=== PATIENT | male | born 1990 | race Caucasian/White ===

== ENCOUNTER 2018-08-09 09:29 | Emergency (ER) | payer SELFPAY ==
[2018-08-09] MEDS ORDERED: HYDROCODONE/APAP 10/325 TAB ONE (09:57)
[2018-08-09] MEDS ORDERED: IBUPROFEN 200 MG TAB PO ONE (09:58)
--- NOTE | 2018-08-09 10:24 | ER ---
Nurse's Notes [facility] Name: Luis Guerra Age: 28 yrs Sex: Male : 1990 Arrival Date: 08/09/2018 Time: 09:35 Bed 11 Private MD: None, None Diagnosis: Unspecified sprain of left wrist Presentation: 08/09 09:36 Presenting complaint: Patient states: Yesterday around 0 I picked up at 700 pound ch tote, and it hurt my L hand. since then my had has been swollen and is not numb and tingling. Transition of care: patient was not received from another setting of care. Onset of symptoms was August 08, 2018 at 21:00. Risk Assessment: Do you want to hurt yourself or someone else? Patient reports no desire to harm self or others. Initial Sepsis Screen: Does the patient meet any 2 criteria? No. Patient's initial sepsis screen is negative. Does the patient have a suspected source of infection? No. Patient's initial sepsis screen is negative. Care prior to arrival: None. 09:36 Method Of Arrival: Ambulatory 09:36 Acuity: REINA 4 Triage Assessment: 09:38 General: Appears in no apparent distress. comfortable, Behavior is calm, cooperative, ch appropriate for age. Pain: Complains of pain in left hand Pain currently is 5 out of 10 on a pain scale. at worst was 7 out of 10 on a pain scale. Musculoskeletal: Capillary refill < 3 seconds, in bilateral fingers. toes. Swelling present in left hand. 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 Flu vaccine is up to date. - Social history:: Smoking status: Patient uses tobacco products, smokes one pack cigarettes per day. - Ebola Screening: : Patient negative for fever greater than or equal to 101.5 degrees Fahrenheit, and additional compatible Ebola Virus Disease symptoms Patient denies exposure to infectious person Patient denies travel to an Ebola-affected area in the 21 days before illness onset No symptoms or risks identified at this time. Screenin:06 Abuse screen: Denies threats or abuse. Denies injuries from another. Nutritional iw screening: No deficits noted. Tuberculosis screening: No symptoms or risk factors identified. Fall Risk None identified. Assessment: 10:05 General: Appears in no apparent distress. comfortable, Behavior is calm, cooperative. iw Pain: Complains of pain in left hand. Neuro: Level of Consciousness is awake, alert, obeys commands, Oriented to person, place, time, situation, Moves all extremities. Full function. Cardiovascular: Patient's skin is warm and dry. Respiratory: Respiratory effort is even, unlabored, Respiratory pattern is regular, symmetrical. GI: No signs and/or symptoms were reported involving the gastrointestinal system. Derm: Skin is intact, is healthy with good turgor. Musculoskeletal: Range of motion: intact in all extremities, Reports pain in left hand. Vital Signs: 09:38 BP 131 / 72; Pulse 90; Resp 16; Temp 98.4; Pulse Ox 99% on R/A; Weight 76.2 kg; Height ch 5 ft. 6 in. (167.64 cm); Pain 5/10; 09:38 Body Mass Index 27.12 (76.20 kg, 167.64 cm) ED Course: 09:35 Patient arrived in ED. mr 09:35 None, None is Private Physician. mr 09:37 Triage completed. ch 09:38 Arm band placed on Patient placed in an exam room, on a stretcher. ch 09:41 Jerome Sandoval NP is PHCP. pm1 09:41 [facility] MD is Attending Physician. pm1 09:51 Mira Jaramillo, JOSE C is Primary Nurse. iw 10:00 Patient has correct armband on for positive identification. iw 10:01 X-ray completed. Portable x-ray completed in exam room. Patient tolerated procedure ls3 well. 10:06 No provider procedures requiring assistance completed. Patient did not have IV access iw during this emergency room visit. 10:37 Wrist Left (3 View) XRAY In Process Unspecified. EDMS Administered Medications: 09:51 Drug: Ibuprofen 600 mg Route: PO; iw 10:30 Not Given (pt does not have ride): [place] 10 mg-325 mg 1 tabs PO once iw Outcome: 10:23 Discharge ordered by . pm1 10:32 Discharged to home ambulatory. iw 10:32 Condition: good 10:32 Discharge instructions given to patient, Instructed on discharge instructions, follow up and referral plans. medication usage, Demonstrated understanding of instructions, follow-up care, medications, Prescriptions given X 2. 10:33 Patient left the ED. Signatures: Dispatcher [employer] EDMS Darby Taveras, JOSE C WOODALL Myrtle Nogueira Irene, RN RN Jerome Sandoval NP TERMITE INSPECTOR pm1 Castro Ott ls3
--- NOTE | 2018-08-09 10:24 | EDPHYS ---
Physician Documentation [facility] Name: Luis Guerra Age: 28 yrs Sex: Male : 1990 Arrival Date: 08/09/2018 Time: 09:35 Bed 11 Private MD: None, None ED Physician [facility] HPI: 08/09 11:00 This 28 yrs old Male presents to ER via Ambulatory with complaints of Left pm1 wrist pain. 11:00 The patient or guardian reports pain. The complaints affect the left wrist diffusely. pm1 Context: The problem was sustained at home, resulted from lifting or pulling, a heavy object. Onset: The symptoms/episode began/occurred today. Modifying factors: The symptoms are alleviated by nothing, the symptoms are aggravated by movement. Associated signs and symptoms: Pertinent negatives: cyanosis distally, decreased sensation distally, fever, numbness distally, tingling distally. The patient has not experienced similar symptoms in the past. 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 Flu vaccine is up to date. - Social history:: Smoking status: Patient uses tobacco products, smokes one pack cigarettes per day. - Ebola Screening: : Patient negative for fever greater than or equal to 101.5 degrees Fahrenheit, and additional compatible Ebola Virus Disease symptoms Patient denies exposure to infectious person Patient denies travel to an Ebola-affected area in the 21 days before illness onset No symptoms or risks identified at this time. ROS: 11:00 Constitutional: Negative for fever, chills, and weight loss, Eyes: Negative for injury, pm1 pain, redness, and discharge, ENT: Negative for injury, pain, and discharge, Neck: Negative for injury, pain, and swelling, Cardiovascular: Negative for chest pain, palpitations, and edema, Respiratory: Negative for shortness of breath, cough, wheezing, and pleuritic chest pain, Abdomen/GI: Negative for abdominal pain, nausea, vomiting, diarrhea, and constipation, Back: Negative for injury and pain, : Negative for injury, bleeding, discharge, and swelling. 11:00 Skin: Negative for injury, rash, and discoloration, Neuro: Negative for headache, weakness, numbness, tingling, and seizure. 11:00 MS/extremity: Positive for pain, of the left wrist, Negative for deformity. Exam: 11:00 Hand exam: is negative for decreased range of motion, deformity, snuff box/scaphoid pm1 tenderness, Exam is positive for Phalens Tinnels left wrist. 11:00 Constitutional: This is a well developed, well nourished patient who is awake, alert, and in no acute distress. Head/Face: Normocephalic, atraumatic. Eyes: Pupils equal round and reactive to light, extra-ocular motions intact. Lids and lashes normal. Conjunctiva and sclera are non-icteric and not injected. Cornea within normal limits. Periorbital areas with no swelling, redness, or edema. ENT: Nares patent. No nasal discharge, no septal abnormalities noted. Tympanic membranes are normal and external auditory canals are clear. Oropharynx with no redness, swelling, or masses, exudates, or evidence of obstruction, uvula midline. Mucous membranes moist. Neck: Trachea midline, no thyromegaly or masses palpated, and no cervical lymphadenopathy. Supple, full range of motion without nuchal rigidity, or vertebral point tenderness. No Meningismus. Chest/axilla: Normal chest wall appearance and motion. Nontender with no deformity. No lesions are appreciated. Cardiovascular: Regular rate and rhythm with a normal S1 and S2. No gallops, murmurs, or rubs. Normal PMI, no JVD. No pulse deficits. Respiratory: Lungs have equal breath sounds bilaterally, clear to auscultation and percussion. No rales, rhonchi or wheezes noted. No increased work of breathing, no retractions or nasal flaring. Abdomen/GI: Soft, non-tender, with normal bowel sounds. No distension or tympany. No guarding or rebound. No evidence of tenderness throughout. Back: No spinal tenderness. No costovertebral tenderness. Full range of motion. Skin: Warm, dry with normal turgor. Normal color with no rashes, no lesions, and no evidence of cellulitis. 11:00 Neuro: Orientation: is normal, Motor: is normal, moves all fours. Vital Signs: 09:38 BP 131 / 72; Pulse 90; Resp 16; Temp 98.4; Pulse Ox 99% on R/A; Weight 76.2 kg; Height ch 5 ft. 6 in. (167.64 cm); Pain 5/10; 09:38 Body Mass Index 27.12 (76.20 kg, 167.64 cm) Procedures: 11:00 Splinting: Splint applied to left wrist using wrist splint, applied by nurse. Examined pm1 by me, post splint application: neurovascular intact, 2+ distal pulses palpable, brisk capillary refill noted, Patient tolerated well. MDM: 09:41 Patient medically screened. pm1 10:22 Data reviewed: vital signs. Data interpreted: Pulse oximetry: on room air is 99 %. pm1 Interpretation: normal. Counseling: I had a detailed discussion with the patient and/or guardian regarding: the historical points, exam findings, and any diagnostic results supporting the discharge/admit diagnosis, radiology results, the need for outpatient follow up, to return to the emergency department if symptoms worsen or persist or if there are any questions or concerns that arise at home. 12 09:44 Order name: Wrist Left (3 View) XRAY pm1 08/09 09:46 Order name: Wrist Splint; Complete Time: 10:30 pm1 Administered Medications: 09:51 Drug: Ibuprofen 600 mg Route: PO; iw 10:30 Not Given (pt does not have ride): [place] 10 mg-325 mg 1 tabs PO once iw Disposition: 08/09/18 10:23 Discharged to Home. Impression: Unspecified sprain of left wrist. - Condition is Stable. - Discharge Instructions: Wrist Pain, Wrist Splint. - Prescriptions for Naprosyn 500 mg Oral Tablet - take 1 tablet by ORAL route 2 times per day take with food; 30 tablet. Tylenol- Codeine #3 300-30 mg Oral Tablet - take 2 tablets by ORAL route every 6 hours As needed; 20 tablet. - Work release form, Medication Reconciliation Form, Thank You Letter, Prescription Opioid Use form. - Follow up: Emergency Department; When: As needed; Reason: Worsening of condition. Follow up: Private Physician; When: 2 - 3 days; Reason: Recheck today's complaints, Continuance of care, Re-evaluation by your physician. - Problem is new. - Symptoms have improved. Addendum: 08/25/2018 15:27 Co-signature as Attending Physician, [facility] MD I agree with the assessment and w a plan of care. Signatures: Dispatcher [employer] EDMS Darby Taveras, RN RN Mira Gomez RN RN iw Jerome Sandoval, ACCREDITED PHARMACY TECHNICIAN ACCREDITED PHARMACY TECHNICIAN pm1 Mert, MD MD latesha Kat Corrections: (The following items were deleted from the chart) 08/09 10:33 10:23 08/09/2018 10:23 Discharged to Home. Impression: Unspecified sprain of left iw wrist. Condition is Stable. Forms are Medication Reconciliation Form, Thank You Letter, Antibiotic Education, Prescription Opioid Use. Follow up: Emergency Department; When: As needed; Reason: Worsening of condition. Follow up: Private Physician; When: 2 - 3 days; Reason: Recheck today's complaints, Continuance of care, Re-evaluation by your physician. Problem is new. Symptoms have improved. pm1
--- NOTE | 2018-08-09 10:44 | RAD REPORT ---
EXAM DESCRIPTION: RAD - Wrist Left 3 View - 08/09/2018 10:37 am CLINICAL HISTORY: PAIN Pain COMPARISON: No comparisons FINDINGS: No fracture or dislocation seen. No foreign body or other soft tissue abnormality. IMPRESSION: Negative examination.
== END 2018-08-09 10:33 | disposition home or self-care (01) ==
LOC: ER 09:29
PROC: 2W3DX1Z Immobilization of Left Lower Arm using Splint (ICD-10-PCS; principal; 2018-08-09)
DX: S63.502A Unspecified sprain of left wrist, initial encounter (principal); X50.0XXA Overexertion from strenuous movement or load, initial encounter; Y93.89 Activity, other specified; Y92.009 Unspecified place in unspecified non-institutional (private) residence as the place of occurrence of the external cause; Z91.048 Other nonmedicinal substance allergy status; F17.210 Nicotine dependence, cigarettes, uncomplicated
CPT/HCPCS: 99283

== ENCOUNTER 2018-10-16 11:08 | Emergency (ER) | payer BC, SELFPAY ==
--- NOTE | 2018-10-16 11:34 | EDPHYS ---
Physician Documentation [facility] Name: Luis Guerra Age: 28 yrs Sex: Male : 1990 Arrival Date: 10/16/2018 Time: 11:11 Bed 19 Private MD: [facility] E ED Physician Armando Zendejas HPI: 10/16 11:29 This 28 yrs old Male presents to ER via Ambulatory with complaints of Neck susy Problem. 11:29 The patient or guardian complains of decreased range of motion, pain, that is acute. susy The symptoms are located at the C1, C2, C3, C4, C5, C6 and C7. Onset: The symptoms/episode began/occurred just prior to arrival. Context: The neck injury/problem resulted from a fall. Associated signs and symptoms: The patient has no apparent associated signs or symptoms. The pain does not radiate. Modifying factors: The symptoms are alleviated by remaining still, the symptoms are aggravated by movement, pressure. Severity of symptoms: At their worst the symptoms were moderate, in the emergency department the symptoms are unchanged. The patient has not experienced similar symptoms in the past. 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 - Social history:: Smoking status: Patient/guardian denies using tobacco. - Ebola Screening: : Patient negative for fever greater than or equal to 101.5 degrees Fahrenheit, and additional compatible Ebola Virus Disease symptoms Patient denies exposure to infectious person Patient denies travel to an Ebola-affected area in the 21 days before illness onset No symptoms or risks identified at this time. - Family history:: not pertinent. ROS: 11:29 Constitutional: Negative for fever, chills, and weight loss, Eyes: Negative for injury, susy pain, redness, and discharge, ENT: Negative for injury, pain, and discharge, Cardiovascular: Negative for chest pain, palpitations, and edema, Respiratory: Negative for shortness of breath, cough, wheezing, and pleuritic chest pain, Abdomen/GI: Negative for abdominal pain, nausea, vomiting, diarrhea, and constipation, Back: Negative for injury and pain, : Negative for injury, bleeding, discharge, and swelling, MS/Extremity: Negative for injury and deformity, Skin: Negative for injury, rash, and discoloration, Neuro: Negative for headache, weakness, numbness, tingling, and seizure, Psych: Negative for depression, anxiety, suicide ideation, homicidal ideation, and hallucinations, Allergy/Immunology: Negative for hives, rash, and allergies, Endocrine: Negative for neck swelling, polydipsia, polyuria, polyphagia, and marked weight changes, Hematologic/Lymphatic: Negative for swollen nodes, abnormal bleeding, and unusual bruising. 11:29 Neck: Positive for pain with movement, stiffness. Exam: 11:29 Constitutional: This is a well developed, well nourished patient who is awake, alert, susy and in no acute distress. Head/Face: Normocephalic, atraumatic. Eyes: Pupils equal round and reactive to light, extra-ocular motions intact. Lids and lashes normal. Conjunctiva and sclera are non-icteric and not injected. Cornea within normal limits. Periorbital areas with no swelling, redness, or edema. ENT: Nares patent. No nasal discharge, no septal abnormalities noted. Tympanic membranes are normal and external auditory canals are clear. Oropharynx with no redness, swelling, or masses, exudates, or evidence of obstruction, uvula midline. Mucous membranes moist. Chest/axilla: Normal chest wall appearance and motion. Nontender with no deformity. No lesions are appreciated. Cardiovascular: Regular rate and rhythm with a normal S1 and S2. No gallops, murmurs, or rubs. Normal PMI, no JVD. No pulse deficits. Respiratory: Lungs have equal breath sounds bilaterally, clear to auscultation and percussion. No rales, rhonchi or wheezes noted. No increased work of breathing, no retractions or nasal flaring. Abdomen/GI: Soft, non-tender, with normal bowel sounds. No distension or tympany. No guarding or rebound. No evidence of tenderness throughout. Back: No spinal tenderness. No costovertebral tenderness. Full range of motion. Male : Normal genitalia with no discharge or lesions. Skin: Warm, dry with normal turgor. Normal color with no rashes, no lesions, and no evidence of cellulitis. MS/ Extremity: Pulses equal, no cyanosis. Neurovascular intact. Full, normal range of motion. Neuro: Awake and alert, GCS 15, oriented to person, place, time, and situation. Cranial nerves II-XII grossly intact. Motor strength 5/5 in all extremities. Sensory grossly intact. Cerebellar exam normal. Normal gait. Psych: Awake, alert, with orientation to person, place and time. Behavior, mood, and affect are within normal limits. 11:29 Neck: External neck: tenderness, C-spine: pain on right , torticollis . head to left, no point spinal pain. Vital Signs: 11:16 BP 129 / 67; Pulse 86; Resp 16; Temp 97.9; Pulse Ox 100% on R/A; Weight 86.18 kg (R); sg Height 5 ft. 11 in. (180.34 cm) (R); Pain 8/10; 11:16 Body Mass Index 26.50 (86.18 kg, 180.34 cm) sg MDM: 11:13 Patient medically screened. [facility] 11:33 Data reviewed: vital signs, nurses notes, radiologic studies, CT scan. [facility] 10/16 11:29 Order name: CT C Spine; Complete Time: 12:22 [facility] Administered Medications: 11:35 Drug: Valium 5 mg Route: PO; em 12:55 Follow up: Response: No adverse reaction; Pain is decreased em 11:35 Drug: TORadol 60 mg Route: IM; Site: right gluteus; em 12:55 Follow up: Response: No adverse reaction em 11:35 Drug: [place] 10 mg-325 mg 1 tabs Route: PO; em 12:55 Follow up: Response: No adverse reaction; Pain is decreased em Disposition: 10/16/18 12:23 Discharged to Home. Impression: Torticollis, Strain of muscle, fascia and tendon at neck level, Fall due to bumping against object. - Condition is Stable. - Discharge Instructions: Muscle Strain, Acute Torticollis, Adult, Cervical Sprain, [id number]. - Prescriptions for Ibuprofen 600 mg Oral Tablet - take 1 tablet by ORAL route every 6 hours As needed take with food; 20 tablet. Tylenol- Codeine #3 300-30 mg Oral Tablet - take 2 tablet by ORAL route every 6 hours As needed; 30 tablet. Valium 5 mg Oral Tablet - take 1 tablet by ORAL route every 8 hours As needed; 20 tablet. - Medication Reconciliation Form, Thank You Letter, Antibiotic Education, Prescription Opioid Use, Work release form form. - Follow up: [facility]; When: 2 - 3 days; Reason: Recheck today's complaints, Continuance of care, Re-evaluation by your physician. Follow up: [place]; When: 2 - 3 days; Reason: Recheck today's complaints, Re-evaluation by your physician. - Problem is new. - Symptoms have improved. Signatures: Dispatcher [employer] EDGuanakito Olivia RN RN sg Anderson, Corey, MD MD cha Munoz, Edgar, SUPERVISOR COMPONENT ASSEMBLER SUPERVISOR COMPONENT ASSEMBLER em Corrections: (The following items were deleted from the chart) 11:42 11:34 10/16/2018 11:34 Discharged to Home. Impression: Torticollis; Strain of muscle, susy fascia and tendon at neck level; Fall due to bumping against object. Condition is Stable. Forms are Medication Reconciliation Form, Thank You Letter, Antibiotic Education, Prescription Opioid Use. Follow up: Private Physician; When: 2 - 3 days; Reason: Recheck today's complaints, Continuance of care, Re-evaluation by your physician. Problem is new. Symptoms have improved. [facility] 12:55 12:23 10/16/2018 12:23 Discharged to Home. Impression: Torticollis; Strain of muscle, em fascia and tendon at neck level; Fall due to bumping against object. Condition is Stable. Discharge Instructions: Muscle Strain, Acute Torticollis, Adult, Cervical Sprain, [place]. Prescriptions for Ibuprofen 600 mg Oral Tablet - take 1 tablet by ORAL route every 6 hours As needed take with food; 20 tablet, Tylenol-Codeine #3 300-30 mg Oral Tablet - take 2 tablet by ORAL route every 6 hours As needed; 30 tablet, Valium 5 mg Oral Tablet - take 1 tablet by ORAL route every 8 hours As needed; 20 tablet, Ibuprofen 600 mg Oral Tablet - take 1 tablet by ORAL route every 6 hours As needed take with food; 20 tablet, Tylenol-Codeine #3 300-30 mg Oral Tablet - take 2 tablet by ORAL route every 6 hours As needed; 30 tablet, Valium 5 mg Oral Tablet - take 1 tablet by ORAL route every 8 hours As needed; 20 tablet. and Forms are Medication Reconciliation Form, Thank You Letter, Antibiotic Education, Prescription Opioid Use. Follow up: [facility]; When: 2 - 3 days; Reason: Recheck today's complaints, Continuance of care, Re-evaluation by your physician. Follow up: [facility]; When: 2 - 3 days; Reason: Recheck today's complaints, Re-evaluation by your physician. Problem is new. Symptoms have improved. susy
--- NOTE | 2018-10-16 11:34 | ER ---
Nurse's Notes [facility] Name: Luis Guerra Age: 28 yrs Sex: Male : 1990 Arrival Date: 10/16/2018 Time: 11:11 Bed 19 Private MD: North Edwards E Diagnosis: Torticollis;Strain of muscle, fascia and tendon at neck level;Fall due to bumping against object Presentation: 10/16 11:15 Presenting complaint: Patient states: Tripped over a weedeater that was laying on the sg ground, pt reports he fell and hurt his neck, no head injury or LOC, reports spasms and pain in the neck and right upper back at this time. Transition of care: patient was not received from another setting of care. Onset of symptoms was October 16, 2018. Risk Assessment: Do you want to hurt yourself or someone else? Patient reports no desire to harm self or others. Initial Sepsis Screen: Does the patient meet any 2 criteria? No. Patient's initial sepsis screen is negative. Does the patient have a suspected source of infection? No. Patient's initial sepsis screen is negative. Care prior to arrival: None. 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 - Social history:: Smoking status: Patient/guardian denies using tobacco. - Ebola Screening: : Patient negative for fever greater than or equal to 101.5 degrees Fahrenheit, and additional compatible Ebola Virus Disease symptoms Patient denies exposure to infectious person Patient denies travel to an Ebola-affected area in the 21 days before illness onset No symptoms or risks identified at this time. - Family history:: not pertinent. Screenin:30 Abuse screen: Denies threats or abuse. Nutritional screening: No deficits noted. em Tuberculosis screening: No symptoms or risk factors identified. Fall Risk None identified. Assessment: 11:30 General: Appears in no apparent distress. uncomfortable, Behavior is calm, cooperative, em tripped and right side of neck, denies LOC or hitting head. Pain: Complains of pain in right posterior aspect of neck and right lateral aspect of neck Pain currently is 8 out of 10 on a pain scale. Pain began 2 hours ago. Aggravated by repositioning, Noted to be head leaning to the left side. Neuro: Level of Consciousness is awake, alert, obeys commands, Oriented to person, place, time, situation, Denies weakness dizziness, headache. Cardiovascular: Capillary refill < 3 seconds Patient's skin is warm and dry. Respiratory: Airway is patent Respiratory effort is even, unlabored, Respiratory pattern is regular, symmetrical. Derm: Skin is intact, is healthy with good turgor, Skin is pink, warm \T\ dry. Musculoskeletal: Range of motion: intact in all extremities. Injury Description: trip injury. Vital Signs: 11:16 BP 129 / 67; Pulse 86; Resp 16; Temp 97.9; Pulse Ox 100% on R/A; Weight 86.18 kg (R); sg Height 5 ft. 11 in. (180.34 cm) (R); Pain 8/10; 11:16 Body Mass Index 26.50 (86.18 kg, 180.34 cm) ED Course: 11:11 Patient arrived in ED. mr 11:12 North Edwards MD is Private Physician. mr 11:13 Armando Zendejas MD is Attending Physician. susy 11:16 Triage completed. sg 11:18 Barak Cunningham LVN is Primary Nurse. em 11:18 Arm band placed on. sg 11:30 Patient has correct armband on for positive identification. Bed in low position. Call em light in reach. Side rails up X2. Adult w/ patient. Pulse ox on. NIBP on. 11:[address] kw1 11:50 CT completed. Patient tolerated procedure well. Patient moved back from CT. mw3 11:51 CT C Spine In Process Unspecified. EDMS 12:22 North Edwards MD is Referral Physician. susy 12:22 Gary Saucedo MD is Referral Physician. susy 12:54 No provider procedures requiring assistance completed. Patient did not have IV access em during this emergency room visit. Administered Medications: 11:35 Drug: Valium 5 mg Route: PO; em 12:55 Follow up: Response: No adverse reaction; Pain is decreased em 11:35 Drug: TORadol 60 mg Route: IM; Site: right gluteus; em 12:55 Follow up: Response: No adverse reaction em 11:35 Drug: [place] 10 mg-325 mg 1 tabs Route: PO; em 12:55 Follow up: Response: No adverse reaction; Pain is decreased em Outcome: 11:34 Discharge ordered by . [facility] 12:23 Discharge ordered by . [facility] 12:54 Discharged to home ambulatory. em 12:54 Condition: good 12:54 Discharge instructions given to patient, Instructed on discharge instructions, follow up and referral plans. no drinking with medication, no driving heavy equipment, medication usage, Demonstrated understanding of instructions, follow-up care, medications, Prescriptions given X 3. 12:55 Patient left the ED. em Signatures: Dispatcher [employer] EDGuanakito Olivia RN RN sg Anderson, Corey, MD MD cha Rivera, Mary mr Munoz, Edgar, NURSERY TECHNICIAN NURSERY TECHNICIAN em Aria Rodriguez kw1 Latosha Felipe mw3
[2018-10-16] MEDS ORDERED: KETOROLAC 30 MG/ML INJ ONE (11:39)
[2018-10-16] MEDS ORDERED: DIAZEPAM 5 MG TABLET ONE (11:39)
[2018-10-16] MEDS ORDERED: HYDROCODONE/APAP 10/325 TAB ONE (11:39)
--- NOTE | 2018-10-16 12:06 | RAD REPORT ---
EXAM DESCRIPTION: CT - C Spine Wo Con - 10/16/2018 11:51 am CLINICAL HISTORY: Fall with neck injury and neck pain COMPARISON: None. TECHNIQUE: Computed axial tomography of the cervical spine were obtained with sagittal and coronal r econstruction images generated and reviewed. All CT scans are performed using dose optimization technique as appropriate and may include automated exposure control or mA/KV adjustment according to patient size. FINDINGS: A cervical fracture is not seen. No dislocation noted. A high-grade stenosis is not seen IMPRESSION: A cervical fracture is not seen. If the patient continues have symptoms to suggest spinal cord/spinal canal pathology then MRI would b e recommended.
[2018-10-16 13:43] VITALS: TEMP 97.9
[2018-10-16 13:49] VITALS: BP 133/95; O2SAT 97
== END 2018-10-16 12:55 | disposition home or self-care (01) ==
LOC: ER 11:08
DX: S16.1XXA Strain of muscle, fascia and tendon at neck level, initial encounter (principal); W18.00XA Striking against unspecified object with subsequent fall, initial encounter; Z88.8 Allergy status to other drugs, medicaments and biological substances; M43.6 Torticollis
CPT/HCPCS: 72125

== ENCOUNTER 2018-12-20 14:35 | Emergency (ER) | payer BC, SELFPAY ==
--- NOTE | 2018-12-20 15:43 | ER ---
Nurse's Notes [facility] Name: Luis Guerra Age: 28 yrs Sex: Male : 1990 Arrival Date: 12/20/2018 Time: 14:38 Bed 13 Private MD: North Edwards E Diagnosis: Acute pharyngitis;Acute upper respiratory infection, unspecified Presentation: 12/20 14:40 Presenting complaint: Patient states: Has been sick for a week. Has children at home rb1 with the flu and pneumonia. Sore throat and cough with yellow/green sputum. Transition of care: patient was not received from another setting of care. Onset of symptoms is unknown. Risk Assessment: Do you want to hurt yourself or someone else? Patient reports no desire to harm self or others. Initial Sepsis Screen: Does the patient meet any 2 criteria? No. Patient's initial sepsis screen is negative. Does the patient have a suspected source of infection? No. Patient's initial sepsis screen is negative. 14:40 Method Of Arrival: Ambulatory rb1 14:40 Acuity: REINA 3 rb1 14:40 Care prior to arrival: Medication(s) given: Over the counter cough medication. rb1 Triage Assessment: 14:40 General: Appears uncomfortable, Behavior is calm, cooperative, Reports fever for rb1 feeling ill for x 1 week. Pain: Complains of pain in throat Pain currently is 5 out of 10 on a pain scale. Pain began x 1 week. EENT: Throat is reddened has enlarged tonsils. Neuro: Level of Consciousness is awake, alert, obeys commands, Oriented to person, place, time, situation. Cardiovascular: Capillary refill < 3 seconds is brisk in bilateral fingers. Respiratory: Reports cough that is productive, yellow/green sputum Airway is patent Respiratory effort is even, unlabored, Respiratory pattern is regular, symmetrical. GI: Reports nausea, vomiting, since x 1 week. : No signs and/or symptoms were reported regarding the genitourinary system. Derm: Skin is dry, Skin is normal, Skin temperature is warm. Musculoskeletal: Range of motion: intact in all extremities. 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 - Social history:: Smoking status: Patient uses tobacco products, smokes 1.5 packs per day. - Ebola Screening: : Patient negative for fever greater than or equal to 101.5 degrees Fahrenheit, and additional compatible Ebola Virus Disease symptoms. Screenin:40 Abuse screen: Denies threats or abuse. Nutritional screening: Has had N/V for 3 or more rb1 days. Tuberculosis screening: No symptoms or risk factors identified. Fall Risk None identified. Assessment: 14:40 General: See triage assessment. rb1 14:40 Respiratory: Airway is patent Respiratory effort is even, unlabored, Respiratory rb1 pattern is regular, symmetrical, Breath sounds are clear bilaterally. 15:40 Reassessment: Patient appears in no apparent distress at this time. No changes from rb1 previously documented assessment. Vital Signs: 14:40 BP 113 / 72; Pulse 92; Resp 16; Temp 97.8(O); Pulse Ox 99% on R/A; Weight 78.02 kg (R); rb1 Height 5 ft. 6 in. (167.64 cm) (R); Pain 5/10; 15:40 BP 113 / 58; Pulse 69; Resp 17; Pulse Ox 99% on R/A; rb1 14:40 Body Mass Index 27.76 (78.02 kg, 167.64 cm) rb1 ED Course: 14:38 Patient arrived in ED. mr 14:38 North Edwards MD is Private Physician. mr 14:39 Heaven Gurrola, RN is Primary Nurse. rb1 14:40 Arm band placed on right wrist. rb1 14:40 Pulse ox on. NIBP on. rb1 14:42 Nicky Garcia FNP-C is [facility]. snw 14:45 Glenn Mckeon MD is Attending Physician. snw 14:54 Flu and/or RSV swab sent to lab. Strep swab sent to lab. mh5 14:55 Patient has correct armband on for positive identification. Bed in low position. Call [facility] light in reach. 14:55 Flu Sent. 5 14:55 Strep Sent. 5 14:56 Triage completed. rb1 15:41 North Edwards MD is Referral Physician. snw 16:08 No provider procedures requiring assistance completed. Patient did not have IV access rb1 during this emergency room visit. Administered Medications: 15:50 Drug: predniSONE 40 mg Route: PO; rb1 16:09 Follow up: Response: No adverse reaction rb1 15:50 Drug: Pepcid 20 mg Route: PO; rb1 16:09 Follow up: Response: No adverse reaction rb1 Outcome: 15:42 Discharge ordered by MD. rojas 16:08 Discharged to home ambulatory. rb1 16:08 Condition: stable 16:08 Discharge instructions given to patient, Instructed on discharge instructions, follow up and referral plans. medication usage, Demonstrated understanding of instructions, follow-up care, medications, Prescriptions given X 3. 16:09 Patient left the ED. rb1 Signatures: Nicky Garcia, VEGETABLE WORKER-C VEGETABLE WORKER-Myrtle Hunter Rebecca, RN RN rb1 [address] [facility]
--- NOTE | 2018-12-20 15:44 | EDPHYS ---
Physician Documentation [facility] Name: Luis Guerra Age: 28 yrs Sex: Male : 1990 Arrival Date: 12/20/2018 Time: 14:38 Bed 13 Private MD: North Edwards E ED Physician Glenn Mckeon HPI: 12/20 15:00 This 28 yrs old Male presents to ER via Ambulatory with complaints of Sore snw Throat, Cough. 15:00 The patient presents with sore throat. The patient describes throat pain as raw, snw scratchy. Onset: The symptoms/episode began/occurred suddenly, and became persistent. Severity of symptoms: At their worst the symptoms were moderate, severe. Associated signs and symptoms: Pertinent positives: cough, diarrhea, fever, flu-like symptoms, Sore throat vomiting. It is unknown whether or not the patient has had similar symptoms in the past. The patient has not recently seen a physician. pt with children with recent influenza dx. Historical: - Allergies: 14:40 Iodine (Anaphylaxis); rb1 - Home Meds: 14:40 None [Active]; rb1 - PMHx: 14:40 esophagus closure-; rb1 - PSHx: 14:40 Abd surgery as an infant; rb1 - Immunization history:: Adult Immunizations unknown. - Social history:: Smoking status: Patient uses tobacco products, smokes 1.5 packs per day. - Ebola Screening: : Patient negative for fever greater than or equal to 101.5 degrees Fahrenheit, and additional compatible Ebola Virus Disease symptoms. ROS: 15:04 Eyes: Negative for injury, pain, redness, and discharge. snw 15:04 Neck: Negative for injury, pain, and swelling, Cardiovascular: Negative for chest pain, palpitations, and edema. 15:04 Abdomen/GI: Positive for vomiting, diarrhea, negative for abd pain and constipation, Back: Negative for injury and pain, : Negative for injury, bleeding, discharge, and swelling, MS/Extremity: Negative for injury and deformity, Skin: Negative for injury, rash, and discoloration, Neuro: Negative for headache, weakness, numbness, tingling, and seizure. 15:04 Constitutional: Positive for body aches, fatigue, fever, malaise. 15:04 ENT: Positive for sore throat. 15:04 Respiratory: Positive for cough. Exam: 15:03 Head/Face: Normocephalic, atraumatic. Eyes: Pupils equal round and reactive to light, snw extra-ocular motions intact. Lids and lashes normal. Conjunctiva and sclera are non-icteric and not injected. Cornea within normal limits. Periorbital areas with no swelling, redness, or edema. 15:03 Neck: Trachea midline, no thyromegaly or masses palpated, and no cervical lymphadenopathy. Supple, full range of motion without nuchal rigidity, or vertebral point tenderness. No Meningismus. Chest/axilla: Normal chest wall appearance and motion. Nontender with no deformity. No lesions are appreciated. 15:03 Respiratory: Lungs have equal breath sounds bilaterally, clear to auscultation and percussion. No rales, rhonchi or wheezes noted. No increased work of breathing, no retractions or nasal flaring. Abdomen/GI: Soft, non-tender, with normal bowel sounds. No distension or tympany. No guarding or rebound. No evidence of tenderness throughout. Back: No spinal tenderness. No costovertebral tenderness. Full range of motion. Skin: Warm, dry with normal turgor. Normal color with no rashes, no lesions, and no evidence of cellulitis. MS/ Extremity: Pulses equal, no cyanosis. Neurovascular intact. Full, normal range of motion. Neuro: Awake and alert, GCS 15, oriented to person, place, time, and situation. Cranial nerves II-XII grossly intact. Motor strength 5/5 in all extremities. Sensory grossly intact. Cerebellar exam normal. Normal gait. 15:03 Constitutional: The patient appears alert, awake, uncomfortable. 15:03 ENT: External ear(s): are unremarkable, Ear canal(s): are normal, TM's: are normal, Nose: is normal, Mouth: is normal, Posterior pharynx: swelling, erythema, that is moderate, Voice: is normal. 15:03 Cardiovascular: Rate: tachycardic, Heart sounds: normal. Vital Signs: 14:40 BP 113 / 72; Pulse 92; Resp 16; Temp 97.8(O); Pulse Ox 99% on R/A; Weight 78.02 kg (R); rb1 Height 5 ft. 6 in. (167.64 cm) (R); Pain 5/10; 15:40 BP 113 / 58; Pulse 69; Resp 17; Pulse Ox 99% on R/A; rb1 14:40 Body Mass Index 27.76 (78.02 kg, 167.64 cm) rb1 MDM: 14:50 Patient medically screened. snw 15:45 Data reviewed: vital signs, nurses notes. Data interpreted: Pulse oximetry: on room air snw is 99 %. Interpretation: normal. Counseling: I had a detailed discussion with the patient and/or guardian regarding: the historical points, exam findings, and any diagnostic results supporting the discharge/admit diagnosis, lab results, the need for outpatient follow up, for definitive care, to return to the emergency department if symptoms worsen or persist or if there are any questions or concerns that arise at home. Special discussion: Based on the history and exam findings, there is no indication for further emergent testing or inpatient evaluation. I discussed with the patient/guardian the need to see the primary care provider for further evaluation of the symptoms. 12/20 14:45 Order name: Strep; Complete Time: 15:40 snw 12/20 14:45 Order name: Flu; Complete Time: 15:40 snw 12/20 15:37 Order name: Throat Culture EDMS Administered Medications: 15:50 Drug: predniSONE 40 mg Route: PO; rb1 16:09 Follow up: Response: No adverse reaction rb1 15:50 Drug: Pepcid 20 mg Route: PO; rb1 16:09 Follow up: Response: No adverse reaction rb1 Disposition: 20:39 Co-signature as Attending Physician, Glenn Mckeon MD Available for consultation at ps1 all times . Disposition: 12/20/18 15:42 Discharged to Home. Impression: Acute pharyngitis, Acute upper respiratory infection, unspecified. - Condition is Stable. - Discharge Instructions: Fever, Adult, Pharyngitis, Upper Respiratory Infection, Adult, Rehydration, Adult. - Prescriptions for Tessalon Perles 100 mg Oral Capsule - take 1 capsule by ORAL route every 8 hours As needed; 15 capsule. Prednisone 20 mg Oral Tablet - take 2 tablet by ORAL route once daily for 5 days; 10 tablet. Pepcid 20 mg Oral Tablet - take 1 tablet by ORAL route once daily; 20 tablet. - Medication Reconciliation Form, Thank You Letter, Antibiotic Education, Prescription Opioid Use, Work release form form. - Follow up: North Edwards MD; When: 2 - 3 days; Reason: Recheck today's complaints, Continuance of care, Re-evaluation by your physician. Follow up: Emergency Department; When: As needed; Reason: Worsening of condition. Signatures: Dispatcher [employer] EDMS Garcia Nicky, LINDA-C FOOD AND NUTRITION SUPERVISOR-Csnw Heaven Gurrola, RN RN rb1 Glenn Mckeon MD MD ps1 Corrections: (The following items were deleted from the chart) 16:09 15:42 12/20/2018 15:42 Discharged to Home. Impression: Acute pharyngitis; Acute upper rb1 respiratory infection, unspecified. Condition is Stable. Forms are Medication Reconciliation Form, Thank You Letter, Antibiotic Education, Prescription Opioid Use. Follow up: North Edwards; When: 2 - 3 days; Reason: Recheck today's complaints, Continuance of care, Re-evaluation by your physician. Follow up: Emergency Department; When: As needed; Reason: Worsening of condition. snw
[2018-12-20] MEDS ORDERED: FAMOTIDINE 20 MG TAB ONE (16:00)
[2018-12-20] MEDS ORDERED: predniSONE 20 MG TAB ONE (16:00)
[2018-12-20 16:13] VITALS: TEMP 97.8; O2SAT 99
[2018-12-20 16:15] VITALS: BP 113/58
== END 2018-12-20 16:09 | disposition home or self-care (01) ==
LOC: ER 14:35
DX: J06.9 Acute upper respiratory infection, unspecified (principal); J02.9 Acute pharyngitis, unspecified; F17.210 Nicotine dependence, cigarettes, uncomplicated; Z91.048 Other nonmedicinal substance allergy status
CPT/HCPCS: 87070; 87081; 87804; J7512

== ENCOUNTER 2019-10-18 11:31 | Emergency (ER) | payer SELFPAY ==
--- NOTE | 2019-10-18 13:51 | EDPHYS ---
Physician Documentation [facility] Name: Luis Guerra Age: 29 yrs Sex: Male : 1990 Arrival Date: 10/18/2019 Time: 11:34 Bed 23 Private MD: ED Physician Osvaldo Montgomery HPI: 10/18 12:22 This 29 yrs old Male presents to ER via Ambulatory with complaints of Sore snw Throat. 12:22 The patient presents with sore throat. The patient describes throat pain as raw, snw scratchy. Onset: The symptoms/episode began/occurred suddenly, 2 day(s) ago, and became persistent. Severity of symptoms: At their worst the symptoms were moderate. Associated signs and symptoms: Pertinent positives: headache, Sore throat dizziness. The patient has not experienced similar symptoms in the past. It is unknown whether or not the patient has recently seen a physician. 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 - Coronavirus screen:: The patient has NOT traveled to [place] in the past 14 days. The patient has NOT traveled to [place] in the past 14 days. Proceed with normal triage process as indicated. - Social history:: Smoking status: Patient reports the use of cigarette tobacco products, smokes 1.5 packs per day. - Ebola Screening: : No symptoms or risks identified at this time. ROS: 12:21 Constitutional: Negative for fever, chills, and weight loss, Eyes: Negative for injury, snw pain, redness, and discharge, Neck: Negative for injury, pain, and swelling, Cardiovascular: Negative for chest pain, palpitations, and edema, Respiratory: Negative for shortness of breath, cough, wheezing, and pleuritic chest pain, Abdomen/GI: Negative for abdominal pain, nausea, vomiting, diarrhea, and constipation, Back: Negative for injury and pain, : Negative for injury, bleeding, discharge, and swelling, MS/Extremity: Negative for injury and deformity, Skin: Negative for injury, rash, and discoloration. 12:21 ENT: Positive for sore throat. 12:21 Neuro: Positive for dizziness, headache. Exam: 12:21 Constitutional: This is a well developed, well nourished patient who is awake, alert, snw and in no acute distress. Head/Face: Normocephalic, atraumatic. Eyes: Pupils equal round and reactive to light, extra-ocular motions intact. Lids and lashes normal. Conjunctiva and sclera are non-icteric and not injected. Cornea within normal limits. Periorbital areas with no swelling, redness, or edema. Neck: Trachea midline, no thyromegaly or masses palpated, and no cervical lymphadenopathy. Supple, full range of motion without nuchal rigidity, or vertebral point tenderness. No Meningismus. Chest/axilla: Normal chest wall appearance and motion. Nontender with no deformity. No lesions are appreciated. Cardiovascular: Regular rate and rhythm with a normal S1 and S2. No gallops, murmurs, or rubs. Normal PMI, no JVD. No pulse deficits. Respiratory: Lungs have equal breath sounds bilaterally, clear to auscultation and percussion. No rales, rhonchi or wheezes noted. No increased work of breathing, no retractions or nasal flaring. Abdomen/GI: Soft, non-tender, with normal bowel sounds. No distension or tympany. No guarding or rebound. No evidence of tenderness throughout. Back: No spinal tenderness. No costovertebral tenderness. Full range of motion. Skin: Warm, dry with normal turgor. Normal color with no rashes, no lesions, and no evidence of cellulitis. MS/ Extremity: Pulses equal, no cyanosis. Neurovascular intact. Full, normal range of motion. Neuro: Awake and alert, GCS 15, oriented to person, place, time, and situation. Cranial nerves II-XII grossly intact. Motor strength 5/5 in all extremities. Sensory grossly intact. Cerebellar exam normal. Normal gait. 12:21 ENT: External ear(s): are unremarkable, TM's: dullness, fluid levels, on the left, Nose: is normal, Mouth: is normal, Posterior pharynx: erythema, that is moderate, Dental exam: normal, dental caries, that is moderate, Voice: is normal. Vital Signs: 12:05 BP 123 / 82; Pulse 92; Resp 20; Temp 97.6(O); Pulse Ox 99% on R/A; Weight 78.02 kg (R); vc Height 5 ft. 6 in. (167.64 cm) (R); Pain 3/10; 12:05 Body Mass Index 27.76 (78.02 kg, 167.64 cm) vc MDM: 12:26 Patient medically screened. snw 12:27 Data reviewed: vital signs, nurses notes. Data interpreted: Pulse oximetry: on room air snw is 99 %. Interpretation: normal. Counseling: I had a detailed discussion with the patient and/or guardian regarding: the historical points, exam findings, and any diagnostic results supporting the discharge/admit diagnosis, lab results, the need for outpatient follow up, to return to the emergency department if symptoms worsen or persist or if there are any questions or concerns that arise at home. Special discussion: Based on the history and exam findings, there is no indication for further emergent testing or inpatient evaluation. I discussed with the patient/guardian the need to see the primary care provider for further evaluation of the symptoms. Administered Medications: No medications were administered Disposition: 14:01 Co-signature as Attending Physician, Osvaldo Montgomery MD I agree with the assessment and kdr plan of care. Disposition: 10/18/19 12:26 Discharged to Home. Impression: Acute suppurative otitis media, Acute pharyngitis. - Condition is Stable. - Discharge Instructions: Otitis Media, Adult, Pharyngitis, Rehydration, Adult, Heat Therapy. - Prescriptions for Augmentin 875- 125 mg Oral Tablet - take 1 tablet by ORAL route every 12 hours for 10 days; 20 tablet. - Work release form, Medication Reconciliation Form, Thank You Letter, Antibiotic Education, Prescription Opioid Use form. - Follow up: Emergency Department; When: As needed; Reason: Worsening of condition. Follow up: Private Physician; When: 2 - 3 days; Reason: Recheck today's complaints, Continuance of care, Re-evaluation by your physician. Signatures: Dispatcher [employer] Osvaldo Smith MD MD [facility] Nicky Garcia, LINDA-C [employer]-Kielw Mariella Huff RN RN vc Corrections: (The following items were deleted from the chart) 12:37 12:26 10/18/2019 12:26 Discharged to Home. Impression: Acute suppurative otitis media; vc Acute pharyngitis. Condition is Stable. Discharge Instructions: Otitis Media, Adult, Pharyngitis, Rehydration, Adult, Heat Therapy. Prescriptions for Augmentin 875-125 mg Oral Tablet - take 1 tablet by ORAL route every 12 hours for 10 days; 20 tablet. and Forms are Work release form, Medication Reconciliation Form, Thank You Letter, Antibiotic Education, Prescription Opioid Use. Follow up: Emergency Department; When: As needed; Reason: Worsening of condition. Follow up: Private Physician; When: 2 - 3 days; Reason: Recheck today's complaints, Continuance of care, Re-evaluation by your physician. snw
--- NOTE | 2019-10-18 13:51 | ER ---
Nurse's Notes [facility] Name: Luis Guerra Age: 29 yrs Sex: Male : 1990 Arrival Date: 10/18/2019 Time: 11:34 Bed 23 Private MD: Diagnosis: Acute suppurative otitis media;Acute pharyngitis Presentation: 10/18 12:01 Presenting complaint: Patient states: "For the last few days I have been dizzy, with a vc headache, and sore throat. Yesterday I lost my voice and it is getting hard to swallow. My lost her voice too. I've been drinking chamomile tea and my voice is back today.". Transition of care: patient was not received from another setting of care. Onset of symptoms was October 16, 2019. Risk Assessment: Do you want to hurt yourself or someone else? Patient reports no desire to harm self or others. Initial Sepsis Screen: Does the patient meet any 2 criteria? No. Patient's initial sepsis screen is negative. Does the patient have a suspected source of infection? No. Patient's initial sepsis screen is negative. Care prior to arrival: None. 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 - Coronavirus screen:: The patient has NOT traveled to [place] in the past 14 days. The patient has NOT traveled to [place] in the past 14 days. Proceed with normal triage process as indicated. - Social history:: Smoking status: Patient reports the use of cigarette tobacco products, smokes 1.5 packs per day. - Ebola Screening: : No symptoms or risks identified at this time. Screenin:05 Abuse screen: Denies threats or abuse. Nutritional screening: No deficits noted. vc Tuberculosis screening: No symptoms or risk factors identified. Fall Risk None identified. Assessment: 12:27 General: Appears in no apparent distress. Behavior is calm, cooperative. Pain: vc Complains of pain in throat. Neuro: Level of Consciousness is awake, alert, obeys commands. Cardiovascular: Patient's skin is warm and dry. Respiratory: Airway is patent Respiratory effort is even, unlabored, Breath sounds are clear. GI: No deficits noted. : No signs and/or symptoms were reported regarding the genitourinary system. EENT: Throat is reddened. Derm: Skin temperature is warm. Musculoskeletal: Circulation, motion, and sensation intact. Range of motion: intact in all extremities. 12:35 Reassessment: Patient and/or family updated on plan of care and expected duration. Pain vc level reassessed. Patient is alert, oriented x 3, equal unlabored respirations, skin warm/dry/pink. Vital Signs: 12:05 BP 123 / 82; Pulse 92; Resp 20; Temp 97.6(O); Pulse Ox 99% on R/A; Weight 78.02 kg (R); vc Height 5 ft. 6 in. (167.64 cm) (R); Pain 3/10; 12:05 Body Mass Index 27.76 (78.02 kg, 167.64 cm) vc ED Course: 11:34 Patient arrived in ED. as 11:35 [facility]C [facility] snw 11:35 Osvaldo Montgomery MD is Attending Physician. snw 12:01 Mariella Huff RN is Primary Nurse. vc 12:04 Triage completed. vc 12:05 Arm band placed on. vc 12:05 Patient has correct armband on for positive identification. vc 12:35 No provider procedures requiring assistance completed. Patient did not have IV access vc during this emergency room visit. Administered Medications: No medications were administered Outcome: 12:26 Discharge ordered by . snw 12:35 Discharged to home ambulatory. vc 12:35 Condition: good 12:35 Discharge instructions given to patient, Instructed on discharge instructions, follow up and referral plans. medication usage, Demonstrated understanding of instructions, follow-up care, medications, Prescriptions given X 1. 12:37 Patient left the ED. vc Signatures: Nicky Garcia FNP-C FNP-Pamela Aranda as Mariella Huff, RN RN vc
[2019-10-18 14:00] VITALS: BP 123/82; TEMP 97.6; O2SAT 99
== END 2019-10-18 12:37 | disposition home or self-care (01) ==
LOC: ER 11:31
DX: H66.002 Acute suppurative otitis media without spontaneous rupture of ear drum, left ear (principal); F17.210 Nicotine dependence, cigarettes, uncomplicated; Z91.048 Other nonmedicinal substance allergy status
CPT/HCPCS: 87070; 87081; 87804; 99282

== ENCOUNTER → 2019-11-01 | Emergency (ER) | payer SELFPAY ==
[~2019-11-01] MED LIST: ATEZOLIZUMAB IV ONE; KETOROLAC 30 MG/ML INJ ONE; ONDANSETRON 4 MG (ODT) TAB ONE
== END ==
LOC: ER 06:15
DX: J02.0 Streptococcal pharyngitis (principal); R11.2 Nausea with vomiting, unspecified; F17.210 Nicotine dependence, cigarettes, uncomplicated; Z91.048 Other nonmedicinal substance allergy status
CPT/HCPCS: 87081; 87804

== ENCOUNTER 2019-11-13 23:19 | Emergency (ER) | payer SELFPAY ==
--- NOTE | 2019-11-14 00:46 | ER ---
Nurse's Notes [facility] Name: Luis Guerra Age: 29 yrs Sex: Male : 1990 Arrival Date: 11/13/2019 Time: 23:31 Bed 16 Private MD: Diagnosis: Dental caries Presentation: 11/12 23:43 Chief complaint: Patient states: he is having severe left jaw pain and swelling from a bb " tooth" which started yesterday and it is making his vision blurry he is supposed to wear glasses but he doesn't wear them. Coronavirus screen: Patient denies fever greater than 100.4F, cough, shortness of breath, or difficulty breathing. Proceed with normal triage process. Ebola Screen: No symptoms or risks identified at this time. Initial Sepsis Screen: Does the patient meet any 2 criteria? No. Patient's initial sepsis screen is negative. Does the patient have a suspected source of infection? No. Patient's initial sepsis screen is negative. Risk Assessment: Do you want to hurt yourself or someone else? Patient reports no desire to harm self or others. Onset of symptoms was November 12, 2019. 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 - Social history:: Smoking status: Patient reports the use of cigarette tobacco products, smokes one pack cigarettes per day. Patient/guardian denies using alcohol, street drugs. Screenin/24 01:03 Abuse screen: Denies threats or abuse. Denies injuries from another. Abuse screen:. mg2 Nutritional screening: No deficits noted. Tuberculosis screening: No symptoms or risk factors identified. Fall Risk None identified. Assessment: 01:02 General: Appears in no apparent distress. comfortable, Behavior is calm, cooperative. mg2 Pain: Complains of pain in tooth. Neuro: Level of Consciousness is awake, alert, obeys commands, Oriented to person, place, time, situation. Cardiovascular: Capillary refill < 3 seconds Patient's skin is warm and dry. Respiratory: Airway is patent Respiratory effort is even, unlabored, Respiratory pattern is regular, symmetrical. GI: No signs and/or symptoms were reported involving the gastrointestinal system. : No signs and/or symptoms were reported regarding the genitourinary system. EENT: Reports toothache. Derm: Skin is intact, is healthy with good turgor, Skin is pink, warm \\T\\ dry. normal. Musculoskeletal: Circulation, motion, and sensation intact. Capillary refill < 3 seconds. Vital Signs: 11/12 23:43 BP 141 / 87; Pulse 76; Resp 16 S; Temp 98.1(O); Pulse Ox 100% on R/A; Weight 78.02 kg bb (R); Height 5 ft. 6 in. (167.64 cm) (R); Pain 10/10; 11/13 01:04 BP 122 / 85; Pulse 80; Resp 18; Temp 98; Pulse Ox 100% on R/A; mg2 11/12 23:43 Body Mass Index 27.76 (78.02 kg, 167.64 cm) ED Course: 11/12 23:31 Patient arrived in ED. cl3 23:45 Triage completed. bb 23:45 Jerome Sandoval NP is PHCP. pm1 23:45 Zhen Santo MD is Attending Physician. pm1 23:46 Arm band placed on Patient placed in an exam room, on a stretcher, on pulse oximetry. bb 11/13 00:05 Hesham Bhatti, JOSE C is Primary Nurse. mg2 01:04 No provider procedures requiring assistance completed. Patient did not have IV access mg2 during this emergency room visit. 01:05 Patient has correct armband on for positive identification. mg2 Administered Medications: 00:51 Drug: [place] 10 mg-325 mg 1 tabs Route: PO; fu 01:02 Follow up: Response: Medication administered at discharge. fu Outcome: 00:46 Discharge ordered by . pm1 01:04 Discharged to home ambulatory. mg2 01:04 Condition: stable 01:04 Discharge instructions given to patient, Instructed on discharge instructions, follow up and referral plans. Demonstrated understanding of instructions, follow-up care, medications, Prescriptions given X 2. 01:05 Patient left the ED. mg2 Signatures: Radha Spears RN RN Jerome Sandoval NP CORPORATE LIBRARIAN pm1 Andres Ryan RN RN Hesham Bhatti RN RN mg2 Morenita Weathers cl3
--- NOTE | 2019-11-14 00:47 | EDPHYS ---
Physician Documentation [facility] Name: Luis Guerra Age: 29 yrs Sex: Male : 1990 Arrival Date: 11/13/2019 Time: 23:31 Bed 16 Private MD: ED Physician Zhen Santo HPI: 11/13 00:42 This 29 yrs old Male presents to ER via Ambulatory with complaints of pm1 Toothache. 00:42 The patient presents with pain. The problem is located in the lower left first molar. pm1 Onset: The symptoms/episode began/occurred yesterday. Duration: The symptoms are continuous. Modifying factors: The symptoms are alleviated by nothing, the symptoms are aggravated by nothing. Associated signs and symptoms: Pertinent positives: swelling, mandibular. Severity of symptoms: in the emergency department the symptoms are actually worse. The patient has experienced similar episodes in the past, multiple times. The patient has not recently seen a physician. 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 - Social history:: Smoking status: Patient reports the use of cigarette tobacco products, smokes one pack cigarettes per day. Patient/guardian denies using alcohol, street drugs. ROS: 11/13 00:42 Constitutional: Negative for fever, chills, and weight loss. pm1 Neck: Negative for injury, pain, and swelling, Cardiovascular: Negative for chest pain, palpitations, and edema, Respiratory: Negative for shortness of breath, cough, wheezing, and pleuritic chest pain, Abdomen/GI: Negative for abdominal pain, nausea, vomiting, diarrhea, and constipation, Back: Negative for injury and pain, MS/Extremity: Negative for injury and deformity, Skin: Negative for injury, rash, and discoloration. ENT: Positive for dental pain, Negative for sore throat, difficulty swallowing, difficulty handling secretions, hoarseness. Exam: 00:42 Constitutional: This is a well developed, well nourished patient who is awake, alert, pm1 and in no acute distress. Head/Face: Normocephalic, atraumatic. 00:42 Chest/axilla: Normal chest wall appearance and motion. Nontender with no deformity. No lesions are appreciated. Cardiovascular: Regular rate and rhythm with a normal S1 and S2. No gallops, murmurs, or rubs. Normal PMI, no JVD. No pulse deficits. Respiratory: Lungs have equal breath sounds bilaterally, clear to auscultation and percussion. No rales, rhonchi or wheezes noted. No increased work of breathing, no retractions or nasal flaring. Skin: Warm, dry with normal turgor. Normal color with no rashes, no lesions, and no evidence of cellulitis. MS/ Extremity: Pulses equal, no cyanosis. Neurovascular intact. Full, normal range of motion. 00:42 ENT: External ear(s): are unremarkable, Ear canal(s): are normal, Dental exam: abscess, is not appreciated, dental caries, that is moderate, diffusely. 00:42 Neuro: Exam negative for acute changes, Orientation: is normal, Motor: is normal, moves all fours. Vital Signs: 11/12 23:43 BP 141 / 87; Pulse 76; Resp 16 S; Temp 98.1(O); Pulse Ox 100% on R/A; Weight 78.02 kg bb (R); Height 5 ft. 6 in. (167.64 cm) (R); Pain 10/10; 11/13 01:04 BP 122 / 85; Pulse 80; Resp 18; Temp 98; Pulse Ox 100% on R/A; mg2 03 23:43 Body Mass Index 27.76 (78.02 kg, 167.64 cm) bb MDM: 00:42 Patient medically screened. pm1 00:45 Data reviewed: vital signs. Data interpreted: Pulse oximetry: on room air is 100 %. pm1 Interpretation: normal. Counseling: I had a detailed discussion with the patient and/or guardian regarding: the historical points, exam findings, and any diagnostic results supporting the discharge/admit diagnosis, the need for outpatient follow up, for definitive care, a dentist, to return to the emergency department if symptoms worsen or persist or if there are any questions or concerns that arise at home. 00:50 ED course: DISABILITY SPECIALIST aware reviewed. pm1 Administered Medications: 00:51 Drug: [place] 10 mg-325 mg 1 tabs Route: PO; fu 01:02 Follow up: Response: Medication administered at discharge. fu Disposition: 01:27 Co-signature as Attending Physician, Zhen Santo MD. pkl Disposition: 11/14/19 00:46 Discharged to Home. Impression: Dental caries. - Condition is Stable. - Discharge Instructions: Dental Pain. - Prescriptions for Amoxicillin 500 mg Oral Capsule - take 1 capsule by ORAL route every 8 hours for 10 days; 30 tablet. Tramadol 50 mg Oral Tablet - take 1 tablet by ORAL route every 8 hours as needed; 12 tablet. - Medication Reconciliation Form, Thank You Letter, Antibiotic Education, Prescription Opioid Use, Work release form form. - Follow up: Emergency Department; When: As needed; Reason: Worsening of condition. Follow up: Private Physician; When: 2 - 3 days; Reason: Recheck today's complaints, Continuance of care, Re-evaluation by your physician. - Problem is new. - Symptoms have improved. Signatures: Zhen Santo MD MD pkl Radha Spears, RN RN Jerome Saucedo, [place] SPECIAL LIBRARY LIBRARIAN pm1 Andres Ryan RN RN fu [place], Michele, RN RN mg2 Corrections: (The following items were deleted from the chart) 01:05 00:46 11/14/2019 00:46 Discharged to Home. Impression: Dental caries. Condition is mg2 Stable. Forms are Medication Reconciliation Form, Thank You Letter, Antibiotic Education, Prescription Opioid Use. Follow up: Emergency Department; When: As needed; Reason: Worsening of condition. Follow up: Private Physician; When: 2 - 3 days; Reason: Recheck today's complaints, Continuance of care, Re-evaluation by your physician. Problem is new. Symptoms have improved. pm1
[2019-11-14] MEDS ORDERED: HYDROCODONE/APAP 10/325 TAB ONE (00:54)
[2019-11-14 01:42] VITALS: O2SAT 100
[2019-11-14 01:43] VITALS: BP 122/85; TEMP 98
== END 2019-11-14 01:05 | disposition home or self-care (01) ==
LOC: ER 23:19
DX: K02.9 Dental caries, unspecified (principal); F17.210 Nicotine dependence, cigarettes, uncomplicated; Z91.048 Other nonmedicinal substance allergy status
CPT/HCPCS: 99283

== ENCOUNTER 2020-01-27 09:49 | Emergency (ER) | payer SELFPAY ==
[2020-01-27] MEDS ORDERED: MEPERIDINE HCL 25 MG/ML SYR ONE ×2 (10:09→10:37)
[2020-01-27] MEDS ORDERED: ONDANSETRON 4 MG/2 ML VIAL ONE (10:09)
[2020-01-27 10:23] LABS: Absolute Lymphocytes (CBC) 4.3 K/uL (0.7-4.9); Basophils % 0.7 % (0-1.3); Hematocrit 45.4 % (39.6-49.0); Lymphocytes % 34.7 % (15.3-44.8); MPV 7.5 fL (7.6-11.3); RBC Red Blood Cell Count 4.92 M/uL (4.33-5.43)
[2020-01-27 10:36] LABS: Potassium 3.5 mmol/L (3.5-5.1)
[2020-01-27] MEDS ORDERED: MORPHINE 4 MG/ML SYR ONE (10:39)
--- NOTE | 2020-01-27 10:53 | RAD REPORT ---
EXAM DESCRIPTION: CT - Stone Protocol - 01/27/2020 10:40 am CLINICAL HISTORY: left flank pain COMPARISON: No comparisons TECHNIQUE: Axial 5 mm thick images were obtained without oral or IV contrast. The [id number] span s the entirety of the system including uppermost abdomen and lung bases. All CT scans are performed using dose optimization technique as appropriate and may include automated exposure control or mA/KV adjustment according to patient size. FINDINGS: Mild left-sided hydronephrosis secondary to a 3 mm stone at the left UVJ. No other obstruc ting or nonobstructing calculi on the left. A 3 millimeter calyx calcification present mid right kidn ey with no hydronephrosis or ureter calcification. No suspicious renal masses. Isodense masses and py elonephritis are not excluded on a stone protocol CT scan. No significant adrenal finding. Urinary bl adder is contracted limiting detail. Imaged portions of the liver, spleen and pancreas show no suspicious findings on non-contrast imaging . No gallbladder or biliary tree abnormality identified. No suspicious bowel findings. Appendix is normal. No mass or bulky lymphadenopathy. Patient has a small 2 centimeter fat only umbilical hernia with sma ll supraumbilical fat only ventral hernias. No free air, free fluid or inflammatory stranding. No significant bony abnormality. No gross evidence for a disc herniation. Central canal detail is inh erently limited. IMPRESSION: Mild left-sided hydronephrosis secondary to a 3 mm UVJ calculus. Isodense masses and pyelonephritis are not excluded on stone protocol technique.
[2020-01-27] MEDS ORDERED: TAMSULOSIN 0.4 MG SR CAP ONE (11:17)
[2020-01-27] MEDS ORDERED: KETOROLAC 30 MG/ML INJ ONE (11:17)
[2020-01-27] MEDS ORDERED: MAGNESIUM SULFATE 1 gm IVPB 1 GM/100 ML BAG IV ONE (11:17)
--- NOTE | 2020-01-27 11:17 | ER ---
Nurse's Notes [facility] Name: Luis Guerra Age: 29 yrs Sex: Male : 1990 Arrival Date: 01/27/2020 Time: 09:52 Bed 7 Private MD: Diagnosis: Ureterolithiasis Presentation: 01/26 09:52 Chief complaint: EMS states: Sudden onset of L low back pain when bending over to set ph up a speaker, reports that pain radiates around to abdomen, pt diaphoretic and actively vomiting upon arrival to ED. Coronavirus screen: Patient denies a cough. Patient denies shortness of breath or difficulty breathing. Patient denies measured and/or subjective temperature greater than 100.4F prior to today's visit. Patient denies travel on a cruise ship or to a country the [facility] currently lists as an affected area. Patient denies contact with known and/or suspected case of COVID-19. Ebola Screen: No symptoms or risks identified at this time. Initial Sepsis Screen: Does the patient meet any 2 criteria? No. Patient's initial sepsis screen is negative. Does the patient have a suspected source of infection? No. Patient's initial sepsis screen is negative. Risk Assessment: Do you want to hurt yourself or someone else? Patient reports no desire to harm self or others. Onset of symptoms was January 27, 2020. 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 - Social history:: Smoking status: Patient reports the use of cigarette tobacco products, smokes one pack cigarettes per day. - Family history:: not pertinent. - Hospitalizations: : No recent hospitalization is reported. Screenin:08 Abuse screen: Denies threats or abuse. Denies injuries from another. Nutritional ph screening: No deficits noted. Tuberculosis screening: No symptoms or risk factors identified. Fall Risk None identified. Assessment: 10:00 General: Appears in no apparent distress. uncomfortable, Behavior is cooperative, ph appropriate for age, restless. Pain: Complains of pain in left mid back Pain radiates to anterior aspect of left lateral abdomen, posterior aspect of left lateral abdomen, left upper quadrant and left lower quadrant Pain currently is 9 out of 10 on a pain scale. Neuro: Level of Consciousness is awake, alert, obeys commands, Oriented to person, place, time, situation. Cardiovascular: Capillary refill < 3 seconds in bilateral fingers Patient's skin is warm and dry. Respiratory: Airway is patent Respiratory effort is even, unlabored. GI: Abdomen is non-distended, Pt is actively vomiting Reports lower abdominal pain, upper abdominal pain, nausea, vomiting. : Reports pain in left flank(s), lower quadrant(s) in lower back. Derm: Skin is intact, Skin is clammy, diaphoretic, Skin is normal. Musculoskeletal: Circulation, motion, and sensation intact. Range of motion: intact in all extremities. 11:07 Reassessment: Patient appears in no apparent distress at this time. Patient and/or ph family updated on plan of care and expected duration. Pain level reassessed. Patient is alert, oriented x 3, equal unlabored respirations, skin warm/dry/pink. 11:18 Reassessment: Patient appears in no apparent distress at this time. Patient and/or ph family updated on plan of care and expected duration. Pain level reassessed. Patient is alert, oriented x 3, equal unlabored respirations, skin warm/dry/pink. D/C pending completion of IV meds Patient states feeling better. Vital Signs: 09:52 BP 128 / 115; Pulse 93; Resp 18; Temp 97.2; Pulse Ox 99% on R/A; Weight 78.47 kg; ph Height 5 ft. 6 in. (167.64 cm); 11:17 BP 122 / 76; Pulse 75; Resp 16; Pulse Ox 98% ; Pain 3/10; ph 12:15 BP 118 / 74; Pulse 74; Resp 18; Temp 98.0; Pulse Ox 99% on R/A; ph 09:52 Body Mass Index 27.92 (78.47 kg, 167.64 cm) ph ED Course: 09:52 Patient arrived in ED. rn 09:52 Du Ramos MD is Attending Physician. rn 09:52 Fariha New, JOSE C is Primary Nurse. ph 09:55 Triage completed. ph 10:10 No provider procedures requiring assistance completed. Initial lab(s) drawn, by tx, ph sent to lab. Inserted saline lock: 20 gauge in right forearm, using aseptic technique. Blood collected. 10:41 CT Stone Protocol In Process Unspecified. EDMS 11:08 Patient has correct armband on for positive identification. Bed in low position. Call ph light in reach. Side rails up X 1. Pulse ox on. NIBP on. Door closed. Noise minimized. 11:08 Arm band placed on Patient placed in an exam room. ph 11:16 Hossein Ortega MD is Referral Physician. rn 12:15 IV discontinued, intact, bleeding controlled, No redness/swelling at site. Pressure ph dressing applied. Administered Medications: 09:53 CANCELLED (Duplicate Order): Demerol 25 mg IVP once; RASS on ADMIN: Combtv4, Very rn Agttd3, Agttd2, Rstlss1, AlertClm0, Drwsy-1, Lt Sdtn-2, Mod Sdtn-3, Dp Sdtn-4, UnArsble-5 10:10 Drug: Zofran (Ondansetron) 4 mg Route: IVP; Site: right forearm; ph 10:30 Follow up: Response: No adverse reaction; Vomiting decreased ph 10:10 Drug: Demerol 50 mg Route: IVP; Site: right forearm; ph 10:15 Follow up: Response: No adverse reaction; Pain is unchanged, physician notified ph 10:32 Drug: morphine 4 mg Route: IVP; Site: right forearm; ph 10:45 Follow up: Response: No adverse reaction; Pain is decreased ph 11:16 Drug: Magnesium Sulfate 1 grams Route: IVPB; Infused Over: 1 hrs; Site: right forearm; ph 12:20 Follow up: Response: No adverse reaction; IV Status: Completed infusion ph 11:17 Drug: TORadol 30 mg Route: IVP; Site: right forearm; ph 11:30 Follow up: Response: No adverse reaction; Pain is decreased ph 11:17 Drug: Flomax 0.4 mg Route: PO; ph 11:30 Follow up: Response: No adverse reaction ph Outcome: 11:16 Discharge ordered by . rn 12:22 Patient left the ED. ss 12:22 Discharged to home ambulatory. ph 12:22 Condition: good 12:22 Discharge instructions given to patient, Instructed on discharge instructions, follow up and referral plans. medication usage, Demonstrated understanding of instructions, follow-up care, medications, Prescriptions given X 3. Signatures: Dispatcher [employer] Du Coy MD MD rn Smirch, Shelby, RN RN Fariha New RN RN ph
--- NOTE | 2020-01-27 11:17 | EDPHYS ---
Physician Documentation [facility] Name: Luis Guerra Age: 29 yrs Sex: Male : 1990 Arrival Date: 01/27/2020 Time: 09:52 Bed 7 Private MD: ED Physician Du Ramos HPI: 01/26 11:06 This 29 yrs old Male presents to ER via EMS with complaints of left flank rn pain. 11:06 The patient complains of pain in the left mid back. The pain radiates to the abdomen. rn Onset: The symptoms/episode began/occurred just prior to arrival. Modifying factors: The symptoms are alleviated by nothing. the symptoms are aggravated by nothing. Severity of pain: At its worst the pain was moderate in the emergency department the pain is unchanged. The patient has not experienced similar symptoms in the past. The patient has not recently seen a physician. No injury, sudden onset, radiates to abdomen. + vomited once. Brother with kidney stones. . 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 - Social history:: Smoking status: Patient reports the use of cigarette tobacco products, smokes one pack cigarettes per day. - Family history:: not pertinent. - Hospitalizations: : No recent hospitalization is reported. ROS: 11:06 Constitutional: Negative for fever, chills, and weight loss, Eyes: Negative for injury, rn pain, redness, and discharge, Neck: Negative for injury, pain, and swelling, Cardiovascular: Negative for chest pain, palpitations, and edema, Respiratory: Negative for shortness of breath, cough, wheezing, and pleuritic chest pain, Abdomen/GI: Negative for diarrhea, and constipation, Back: + flank pain, left side : Negative for injury, bleeding, discharge, and swelling, MS/Extremity: Negative for injury and deformity, Skin: Negative for injury, rash, and discoloration, Neuro: Negative for headache, weakness, numbness, tingling, and seizure. Exam: 11:06 Constitutional: This is a well developed, well nourished patient who is awake, alert, rn looks uncomfortable. Cardiovascular: Regular rate and rhythm. No pulse deficits. Respiratory: No increased work of breathing, no retractions or nasal flaring. Abdomen/GI: Soft, non-tender Back: No spinal tenderness. No costovertebral tenderness. Skin: Warm, dry MS/ Extremity: Pulses equal, no cyanosis. Neurovascular intact. Full, normal range of motion. Equal circumference. Neuro: Awake and alert, GCS 15 Vital Signs: 09:52 BP 128 / 115; Pulse 93; Resp 18; Temp 97.2; Pulse Ox 99% on R/A; Weight 78.47 kg; ph Height 5 ft. 6 in. (167.64 cm); 11:17 BP 122 / 76; Pulse 75; Resp 16; Pulse Ox 98% ; Pain 3/10; ph 12:15 BP 118 / 74; Pulse 74; Resp 18; Temp 98.0; Pulse Ox 99% on R/A; ph 09:52 Body Mass Index 27.92 (78.47 kg, 167.64 cm) ph MDM: 09:52 Patient medically screened. rn 11:14 Differential diagnosis: nephrolithiasis. 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 Counseling: I had a detailed discussion with the patient and/or guardian regarding: the historical points, exam findings, and any diagnostic results supporting the discharge/admit diagnosis, lab results, radiology results, the need for outpatient follow up, to return to the emergency department if symptoms worsen or persist or if there are any questions or concerns that arise at home. Response to treatment: the patient's symptoms have markedly improved after treatment, and as a result, I will discharge patient. Special discussion: I discussed with the patient/guardian in detail that at this point there is no indication for admission to the hospital. It is understood, however, that if the symptoms persist or worsen the patient needs to return immediately for re-evaluation. ED course: Sleeping comfortably, 3mm stone at UVJ, will pass soon, flomax and magnesium administered, spoke with patient regarding diagnosis, is thankful and understands return precautions. . 11:24 ED course: [place] shows 080/060/000/150. rn 01/26 09:53 Order name: Basic Metabolic Panel; Complete Time: 10:44 rn 01/26 09:53 Order name: CBC with Diff; Complete Time: 10:44 rn 01/26 09:53 Order name: Lipase; Complete Time: 10:44 rn 01/26 09:53 Order name: CT Stone Protocol; Complete Time: 10:54 rn 01/26 09:53 Order name: IV Saline Lock; Complete Time: 10:31 rn 01/26 09:53 Order name: Labs collected and sent; Complete Time: 10:31 rn Administered Medications: 09:53 CANCELLED (Duplicate Order): Demerol 25 mg IVP once; RASS on ADMIN: Combtv4, Very rn Agttd3, Agttd2, Rstlss1, AlertClm0, Drwsy-1, Lt Sdtn-2, Mod Sdtn-3, Dp Sdtn-4, UnArsble-5 10:10 Drug: Zofran (Ondansetron) 4 mg Route: IVP; Site: right forearm; ph 10:30 Follow up: Response: No adverse reaction; Vomiting decreased ph 10:10 Drug: Demerol 50 mg Route: IVP; Site: right forearm; ph 10:15 Follow up: Response: No adverse reaction; Pain is unchanged, physician notified ph 10:32 Drug: morphine 4 mg Route: IVP; Site: right forearm; ph 10:45 Follow up: Response: No adverse reaction; Pain is decreased ph 11:16 Drug: Magnesium Sulfate 1 grams Route: IVPB; Infused Over: 1 hrs; Site: right forearm; ph 12:20 Follow up: Response: No adverse reaction; IV Status: Completed infusion ph 11:17 Drug: TORadol 30 mg Route: IVP; Site: right forearm; ph 11:30 Follow up: Response: No adverse reaction; Pain is decreased ph 11:17 Drug: Flomax 0.4 mg Route: PO; ph 11:30 Follow up: Response: No adverse reaction ph Disposition: 01/27/20 11:16 Discharged to Home. Impression: Ureterolithiasis. - Condition is Stable. - Discharge Instructions: Kidney Stones, Dietary Guidelines to Help Prevent Kidney Stones. - Prescriptions for Zofran ODT 4 mg Oral tablet,disintegrating - place 1 tablet by TRANSLINGUAL route every 8 hours As needed; 15 tablet. Tylenol- Codeine #3 300-30 mg Oral Tablet - take 1 tablet by ORAL route every 6 hours As needed; 15 tablet. Flomax 0.4 mg Oral Capsule, Sust. Release 24 hr - take 1 capsule by ORAL route once daily Stop taking once you feel kidney stone has passed. 1/2 hour following the same meal each day; 3 capsule. - Medication Reconciliation Form, Thank You Letter, Antibiotic Education, Prescription Opioid Use form. - Follow up: Hossein Ortega MD; When: As needed; Reason: Recheck today's complaints, Re-evaluation by your physician. - Problem is new. - Symptoms have improved. Signatures: Dispatcher [employer] EDMS Du Ramos MD MD rn Smirch, Shelby, RN RN ss Fariha New RN RN ph Corrections: (The following items were deleted from the chart) 09:53 09:53 Demerol 25 mg IVP once; RASS on ADMIN: Combtv4, Very Agttd3, Agttd2, Rstlss1, rn AlertClm0, Drwsy-1, Lt Sdtn-2, Mod Sdtn-3, Dp Sdtn-4, UnArsble-5 ordered. rn 12:22 11:16 01/27/2020 11:16 Discharged to Home. Impression: Ureterolithiasis. Condition is ss Stable. Forms are Medication Reconciliation Form, Thank You Letter, Antibiotic Education, Prescription Opioid Use. Follow up: Hossein Ortega; When: As needed; Reason: Recheck today's complaints, Re-evaluation by your physician. Problem is new. Symptoms have improved. rn
[2020-01-27 12:35] VITALS: TEMP 97.2
[2020-01-27 12:36] VITALS: BP 122/76; O2SAT 98
== END 2020-01-27 12:22 | disposition home or self-care (01) ==
LOC: ER 09:49
DX: N20.1 Calculus of ureter (principal); F17.210 Nicotine dependence, cigarettes, uncomplicated; Z91.048 Other nonmedicinal substance allergy status
CPT/HCPCS: 36415; 74176; 76377; 80048; 83690; 85025; 96365; 96375; 99284; J2175; J2405; J3475

== ENCOUNTER 2020-07-18 21:44 | Emergency (ER) | payer SELFPAY ==
[2020-07-18] MEDS ORDERED: IBUPROFEN 400 MG TAB ONE (22:59)
[2020-07-18] MEDS ORDERED: TETANUS & DIPHTHERIA TOX,ADULT 0.5 ML VIAL ONE (23:03)
--- NOTE | 2020-07-18 23:48 | ER ---
Nurse's Notes [facility] Name: Luis Guerra Age: 30 yrs Sex: Male : 1990 Arrival Date: 07/18/2020 Time: 21:46 Bed 24 Private MD: [place] E Diagnosis: Left Hand Pain;Insect Bite Presentation: 07/18 22:00 Chief complaint: Patient states: that he was cooking his turkey outside and thinks that fc he got bitten by something on the left middle knuckle and now his hand is swollen and he cannot close it. Coronavirus screen: Client denies travel out of the [place] in the last 14 days. Ebola Screen: Patient negative for fever greater than or equal to 101.5 degrees Fahrenheit, and additional compatible Ebola Virus Disease symptoms Patient denies exposure to infectious person. Patient denies travel to an Ebola-affected area in the 21 days before illness onset. Initial Sepsis Screen: Does the patient meet any 2 criteria? No. Patient's initial sepsis screen is negative. Does the patient have a suspected source of infection? No. Patient's initial sepsis screen is negative. Risk Assessment: Do you want to hurt yourself or someone else? Patient reports no desire to harm self or others. Onset of symptoms was July 18, 2020 at 16:30. Care prior to arrival: cleaned with peroxide and applied KATT. Transition of care: patient was not received from another setting of care. 22:00 Method Of Arrival: Ambulatory fc 22:00 Acuity: REINA 4 Triage Assessment: 22:00 General: Appears in no apparent distress. uncomfortable, well groomed, Behavior is fc calm, cooperative, appropriate for age. Pain: Complains of pain in left hand Pain currently is 3 out of 10 on a pain scale. at worst was 7 out of 10 on a pain scale. Quality of pain is described as aching, throbbing, Pain began at 1630 today Is continuous, Aggravated by increased activity, repositioning. EENT: No deficits noted. Neuro: Level of Consciousness is awake, alert, obeys commands, Oriented to person, place, time, situation, Appropriate for age. Cardiovascular: No deficits noted. Respiratory: No deficits noted. GI: No deficits noted. : No deficits noted. Derm: Skin is pink, warm \T\ dry. Musculoskeletal: Circulation, motion, and sensation intact. Capillary refill < 3 seconds, Range of motion: limited in left hand including fingers and wrist Swelling present in left hand Reports pain in left hand. 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 - Social history:: Smoking status: Patient reports the use of cigarette tobacco products, smokes 1.5 packs per day, Patient/guardian denies using alcohol, street drugs. Screenin:00 Abuse screen: Denies threats or abuse. Nutritional screening: No deficits noted. fc Tuberculosis screening: No symptoms or risk factors identified. Fall Risk None identified. Assessment: 22:05 Reassessment: No changes from previously documented assessment. Patient is alert, fc oriented x 3, equal unlabored respirations, skin warm/dry/pink. see triage assessment. 22:29 Reassessment: No changes from previously documented assessment. Dr Covington in to see and fc examine pt. 22:42 Reassessment: Radiology at bedside to do hand xrays. 22:46 Reassessment: After discussing Tetanus shot with pt he has decided he was not actually fc sure if he got one last year. He states that he spoke to about it and will take the Tetanus shot today. 23:41 Reassessment: No changes from previously documented assessment. Patient is alert, fc oriented x 3, equal unlabored respirations, skin warm/dry/pink. Pt is pending discharge. 23:43 Reassessment: Dr Covington back in to see and and discuss test results and discharge fc instructions. Vital Signs: 22:00 BP 121 / 75; Pulse 88; Resp 20; Temp 98.3(O); Pulse Ox 99% on R/A; Weight 84.82 kg (R); fc Height 5 ft. 6 in. (167.64 cm) (R); Pain 3/10; 23:30 BP 124 / 85; Pulse 84; Resp 20; Pulse Ox 98% ; Pain 2/10; fc 22:00 Body Mass Index 30.18 (84.82 kg, 167.64 cm) ED Course: 21:46 Patient arrived in ED. mr 21:46 [place] Edwards MD is Private Physician. mr 22:00 Arm band placed on Patient placed in an exam room. 22:00 Patient has correct armband on for positive identification. Bed in low position. Call fc light in reach. Pulse ox on. NIBP on. 22:00 No provider procedures requiring assistance completed. 22:06 Kulwant Covington MD is Attending Physician. [facility] 22:31 Coleen Sanchez RN is Primary Nurse. fc 22:33 Triage completed. 22:55 Hand Left 3 View XRAY In Process Unspecified. EDND 23:46 Duran Peralta MD is Referral Physician. [facility] 23:52 Patient did not have IV access during this emergency room visit. 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 Exp: 11/03/2021. Lot #: [id number]. } Route: IM; Site: right deltoid; 23:19 Follow up: Response: No adverse reaction Outcome: 23:47 Discharge ordered by . [facility] 23:52 Discharged to home ambulatory. 23:52 Condition: good 23:52 Discharge instructions given to patient, Instructed on discharge instructions, follow up and referral plans. medication usage, Demonstrated understanding of instructions, follow-up care, medications, Prescriptions given X 2. 23:53 Patient left the ED. Signatures: Dispatcher [employer] [facility] Myrtle Nogueira mr Coleen Sanchez, JOSE C RN Kulwant Covington MD MD [facility]
--- NOTE | 2020-07-18 23:48 | EDPHYS ---
Physician Documentation [facility] Name: Luis Guerra Age: 30 yrs Sex: Male : 1990 Arrival Date: 07/18/2020 Time: 21:46 Bed 24 Private MD: [place] [facility] ED Physician Kulwant Covington HPI: 07/18 22:55 This 30 yrs old Male presents to ER via Ambulatory with complaints of Hand mh7 Swelling. 22:55 The patient or guardian reports pain, swelling, tenderness. The complaints affect the mh7 left hand. Context: The problem was sustained on a street or driveway, resulted from Possible bite by something. Onset: The symptoms/episode began/occurred today, at 16:00. Modifying factors: The symptoms are alleviated by nothing, the symptoms are aggravated by movement. Associated signs and symptoms: Pertinent negatives: cyanosis distally, decreased sensation distally, fever, nausea, numbness distally, tingling distally, vomiting. Severity of symptoms:. 22:58 Severity of symptoms: At their worst the symptoms were moderate, earlier today, in the [facility] emergency department the symptoms are unchanged. 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 - Social history:: Smoking status: Patient reports the use of cigarette tobacco products, smokes 1.5 packs per day, Patient/guardian denies using alcohol, street drugs. ROS: 22:58 Constitutional: Negative for fever, chills, and weight loss, Eyes: Negative for injury, mh7 pain, redness, and discharge, ENT: Negative for injury, pain, and discharge, Neck: Negative for injury, pain, and swelling, Cardiovascular: Negative for chest pain, palpitations, and edema, Respiratory: Negative for shortness of breath, cough, wheezing, and pleuritic chest pain, Abdomen/GI: Negative for abdominal pain, nausea, vomiting, diarrhea, and constipation. 23:02 Back: Negative for injury and pain, : Negative for injury, bleeding, discharge, and mh7 swelling, Neuro: Negative for headache, weakness, numbness, tingling, and seizure, Psych: Negative for depression, anxiety, suicide ideation, homicidal ideation, and hallucinations, Allergy/Immunology: Negative for hives, rash, and allergies, Endocrine: Negative for neck swelling, polydipsia, polyuria, polyphagia, and marked weight changes, Hematologic/Lymphatic: Negative for swollen nodes, abnormal bleeding, and unusual bruising. Exam: 23:02 Constitutional: This is a well developed, well nourished patient who is awake, alert, mh7 and in no acute distress. Head/Face: Normocephalic, atraumatic. Eyes: Pupils equal round and reactive to light, extra-ocular motions intact. Lids and lashes normal. Conjunctiva and sclera are non-icteric and not injected. Cornea within normal limits. Periorbital areas with no swelling, redness, or edema. Neck: Trachea midline, no thyromegaly or masses palpated, and no cervical lymphadenopathy. Supple, full range of motion without nuchal rigidity, or vertebral point tenderness. No Meningismus. Chest/axilla: Normal chest wall appearance and motion. Nontender with no deformity. No lesions are appreciated. Cardiovascular: Regular rate and rhythm with a normal S1 and S2. No gallops, murmurs, or rubs. Normal PMI, no JVD. No pulse deficits. Respiratory: Lungs have equal breath sounds bilaterally, clear to auscultation and percussion. No rales, rhonchi or wheezes noted. No increased work of breathing, no retractions or nasal flaring. Abdomen/GI: Soft, non-tender, with normal bowel sounds. No distension or tympany. No guarding or rebound. No evidence of tenderness throughout. Back: No spinal tenderness. No costovertebral tenderness. Full range of motion. Neuro: Awake and alert, GCS 15, oriented to person, place, time, and situation. Cranial nerves II-XII grossly intact. Motor strength 5/5 in all extremities. Sensory grossly intact. Cerebellar exam normal. Normal gait. Psych: Awake, alert, with orientation to person, place and time. Behavior, mood, and affect are within normal limits. 23:43 Skin: Warm, dry with normal turgor. Normal color with no rashes, no lesions, and no 7 evidence of cellulitis. 23:43 Musculoskeletal/extremity: Extremities: noted in the dorsal left hand at 3rd MCP: pain, swelling, tenderness, ROM: intact in all extremities, Circulation is intact in all extremities. Pulses: are normal with no appreciated deficits, Perfusion: the patient is normally perfused throughout, Sensation intact. Compartment Syndrome exam of affected extremity: is normal. no numbness, no tingling, no sensation deficit, no palor, no weak pulses, Joints: the MCP of left middle finger displays swelling, tenderness, Weight bearing: able to fully bear weight, without difficulty, Tendon exam: specific tendon testing normal through active and passive range of motion Vital Signs: 22:00 BP 121 / 75; Pulse 88; Resp 20; Temp 98.3(O); Pulse Ox 99% on R/A; Weight 84.82 kg (R); fc Height 5 ft. 6 in. (167.64 cm) (R); Pain 3/10; 23:30 BP 124 / 85; Pulse 84; Resp 20; Pulse Ox 98% ; Pain 2/10; fc 22:00 Body Mass Index 30.18 (84.82 kg, 167.64 cm) fc MDM: 23:43 Differential diagnosis: dislocation, closed fracture, contusion, abrasion, Insect Bite. [facility] Data reviewed: vital signs, nurses notes, radiologic studies, plain films. Data interpreted: Pulse oximetry: on room air is 98 %. Interpretation: normal. Counseling: I had a detailed discussion with the patient and/or guardian regarding: the historical points, exam findings, and any diagnostic results supporting the discharge/admit diagnosis, radiology results, the need for outpatient follow up, a hand specialist, to return to the emergency department if symptoms worsen or persist or if there are any questions or concerns that arise at home. Response to treatment: the patient's symptoms have markedly improved after treatment. 23:[address] [facility] 07/18 22:30 Order name: Hand Left [address] 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 Exp: 11/03/2021. Lot #: [id number]. } Route: IM; Site: right deltoid; 23:19 Follow up: Response: No adverse reaction fc Disposition: 07/18/20 23:47 Discharged to Home. Impression: Left Hand Pain, Insect Bite. - Condition is Stable. - Discharge Instructions: Insect Bite, Trlm-ja-[id number], Hand Pain. - Prescriptions for Augmentin 875- 125 mg Oral Tablet - take 1 tablet by ORAL route every 12 hours for 10 days; 20 tablet. Ibuprofen 800 mg Oral Tablet - take 1 tablet by ORAL route every 8 hours As needed take with food; 15 tablet. - Medication Reconciliation Form, Thank You Letter, Antibiotic Education, Prescription Opioid Use form. - Follow up: Private Physician; When: 1 - 2 days; Reason: Worsening of condition, Recheck today's complaints, Continuance of care, Re-evaluation by your physician. Follow up: Duran Peralta MD; When: 1 - 2 days; Reason: Worsening of condition, Recheck today's complaints. - Problem is new. - Symptoms have improved. Signatures: Dispatcher [employer] EDColeen German RN RN Kulwant Covington MD MD mh7 Corrections: (The following items were deleted from the chart) 23:53 23:47 07/18/2020 23:47 Discharged to Home. Impression: Left Hand Pain; Insect Bite. fc Condition is Stable. Forms are Medication Reconciliation Form, Thank You Letter, Antibiotic Education, Prescription Opioid Use. Follow up: Private Physician; When: 1 - 2 days; Reason: Worsening of condition, Recheck today's complaints, Continuance of care, Re-evaluation by your physician. Follow up: Duran Peralta; When: 1 - 2 days; Reason: Worsening of condition, Recheck today's complaints. Problem is new. Symptoms have improved. mh7
[2020-07-19 02:51] VITALS: TEMP 98.3
[2020-07-19 02:53] VITALS: BP 124/85; O2SAT 98
--- NOTE | 2020-07-19 17:40 | RAD REPORT ---
EXAM DESCRIPTION: RAD - Hand Left 3 View - 07/18/2020 10:55 pm CLINICAL HISTORY: PAIN COMPARISON: None. FINDINGS: 3 views of the left hand. No acute fracture or dislocation. Normal osseous mineralization. No radiopaque foreign body. IMPRESSION: 1. No acute fracture or dislocation. Electronically signed by: Andi Richards 07/18/2020 11:43 PM MEDICAL BILLING CODER Due to temporary technical issues with the PACS/Fluency reporting system, reports are being signed by the in house radiologists without review as a courtesy to insure prompt reporting. The interpreting radiologist is fully responsible for the content of the report.
== END 2020-07-18 23:53 | disposition home or self-care (01) ==
LOC: ER 21:44
DX: M79.642 Pain in left hand (principal); W57.XXXA Bitten or stung by nonvenomous insect and other nonvenomous arthropods, initial encounter; Z23 Encounter for immunization; F17.210 Nicotine dependence, cigarettes, uncomplicated; Z91.048 Other nonmedicinal substance allergy status
CPT/HCPCS: 90471; 90714; 99284

== ENCOUNTER 2021-08-01 19:01 | Emergency (ER) | payer SELFPAY ==
[2021-08-01 21:27] LABS: SARS-COV-2 RT PCR POSITIVE (NEGATIVE)
[2021-08-01] MEDS ORDERED: ONDANSETRON 4 MG (ODT) TAB ONE (21:50)
--- NOTE | 2021-08-01 21:50 | EDPHYS ---
Physician Documentation [facility] Name: Luis Guerra Age: 31 yrs Sex: Male : 1990 Arrival Date: 08/01/2021 Time: 19:04 Bed DIS3 Private MD: ED Physician Armando Zendejas HPI: 08/01 21:35 This 31 yrs old Male presents to ER via Ambulatory with complaints of Sore Throat, cp Nausea, Headache. 21:35 The patient presents with sore throat. Onset: The symptoms/episode began/occurred this cp morning. Severity of symptoms: in the emergency department the symptoms are unchanged, despite home interventions. Associated signs and symptoms: Pertinent positives: headache, nausea, Sore throat vomiting, Pertinent negatives diarrhea. Patient reports room mate recently tested positive for COVID-19. Historical: - Immunization history:: Client reports having NOT received the Covid vaccine. - Social history:: Smoking status: Patient reports the use of cigarette tobacco products, smokes one pack cigarettes per day. ROS: 21:38 Constitutional: Negative for fever, poor PO intake. cp 21:38 Eyes: Negative for injury, pain, redness, and discharge. cp 21:38 ENT: Positive for sore throat, Negative for drainage from ear(s), ear pain, difficulty swallowing, difficulty handling secretions. 21:38 Cardiovascular: Negative for chest pain. 21:38 Respiratory: Negative for cough, shortness of breath, wheezing. 21:38 Abdomen/GI: Positive for nausea, vomiting, Negative for abdominal pain, diarrhea, constipation. 21:38 Neuro: Negative for headache, weakness. 21:38 All other systems are negative. Exam: 21:40 Constitutional: The patient appears in no acute distress, alert, awake, non-toxic, well cp developed, well nourished. 21:40 Head/Face: Normocephalic, atraumatic. cp 21:40 Eyes: Periorbital structures: appear normal, Conjunctiva: normal, no exudate, no injection, Lids and lashes: appear normal, bilaterally. 21:40 ENT: External ear(s): are unremarkable, Nose: is normal, Mouth: Lips: moist, Oral mucosa: moist, Posterior pharynx: Airway: no evidence of obstruction, patent. 21:40 Neck: ROM/movement: is normal, is supple, without pain, no range of motions limitations, no meningismus. 21:40 Chest/axilla: Inspection: normal. 21:40 Cardiovascular: Rate: normal. 21:40 Respiratory: the patient does not display signs of respiratory distress, Respirations: normal, no use of accessory muscles, no retractions, labored breathing, is not present, Breath sounds: are clear throughout, no decreased breath sounds, no stridor, no wheezing. 21:40 Abdomen/GI: Inspection: abdomen appears normal, Palpation: abdomen is soft and non-tender, in all quadrants. Vital Signs: 19:38 BP 106 / 68; Pulse 88; Resp 16; Temp 98.0; Pulse Ox 100% on R/A; Weight 83.01 kg; da3 Height 5 ft. 6 in. (167.64 cm); 22:00 Pulse 79; Resp 18; Pulse Ox 100% on R/A; ld1 19:38 Body Mass Index 29.54 (83.01 kg, 167.64 cm) da3 MDM: 21:40 Differential diagnosis: group A strep tonsillitis, influenza, pharyngitis, tonsillitis, cp gastroenteritis. 21:41 Patient medically screened. [facility] 21:48 Data reviewed: vital signs, nurses notes, lab test result(s). cp 21:48 Counseling: I had a detailed discussion with the patient and/or guardian regarding: the cp historical points, exam findings, and any diagnostic results supporting the discharge/admit diagnosis, lab results, to return to the emergency department if symptoms worsen or persist or if there are any questions or concerns that arise at home. ED course: VSS. Patient appears non-toxic and no signs of respiratory distress. No vomiting observed. Will discharge to home for continued monitoring. 08/01 20:06 Order name: COVID-19/FLU A+B (Document "Date of Onset" if Symptomatic); Complete Time: la1 21:46 08/01 21:46 Interpretation: Reviewed. cp 08/01 20:06 Order name: Strep; Complete Time: 21:46 la1 08/01 21:07 Order name: Throat Culture EDMS Administered Medications: 21:51 Drug: Zofran (Ondansetron) 4 mg Route: PO; ld1 Disposition Summary: 08/01/21 21:49 Discharge Ordered Location: Home cp Problem: new cp Symptoms: are unchanged cp Condition: Stable cp Diagnosis - SARS-associated coronavirus as the cause of diseases classified elsewhere cp Followup: cp - With: Private Physician - When: 2 - 3 days - Reason: Worsening of condition Discharge Instructions: - Discharge Summary Sheet cp - Nausea and Vomiting, Adult cp - COVID-19 cp - Things to Know about the COVID-19 Pandemic - [facility] [place] cp - 10 Things You Can Do to Manage Your COVID-19 Symptoms at Home - [facility] [place] cp - COVID-19: Quarantine vs. Isolation - [facility] [place] cp - Prevent the Spread of COVID-19 if You Are Sick - [facility] [place] cp Forms: - Medication Reconciliation Form cp - Thank You Letter cp - Antibiotic Education cp - Prescription Opioid Use cp Prescriptions: - Zofran 4 mg Oral Tablet - take 1 tablet by ORAL route every 12 hours As needed; 20 tablet; Refills: 0, cp Product Selection Permitted Addendum: 08/04/2021 11:06 Co-signature as Attending Physician, Armando Zendejas MD I agree with the assessment and c blum plan of care. 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
--- NOTE | 2021-08-01 21:50 | ER ---
Nurse's Notes [facility] Name: Luis Guerra Age: 31 yrs Sex: Male : 1990 Arrival Date: 08/01/2021 Time: 19:04 Bed DIS3 Private MD: Diagnosis: SARS-associated coronavirus as the cause of diseases classified elsewhere Presentation: 08/01 19:37 Chief complaint: Patient states: head ache, vomit and sore throat. Coronavirus screen: da3 Vaccine status: Patient reports being unvaccinated. Ebola Screen: No symptoms or risks identified at this time. Initial Sepsis Screen: Does the patient meet any 2 criteria? No. Patient's initial sepsis screen is negative. Risk Assessment: Do you want to hurt yourself or someone else? Patient reports no desire to harm self or others. 19:37 Method Of Arrival: Ambulatory da3 19:38 Onset of symptoms was July 31, 2021. da3 19:38 Acuity: REINA 4 da3 Triage Assessment: 19:38 General: Appears in no apparent distress. comfortable, Behavior is calm, cooperative. da3 Pain: Complains of pain in neck Pain currently is 5 out of 10 on a pain scale. EENT: No deficits noted. Historical: - Immunization history:: Client reports having NOT received the Covid vaccine. - Social history:: Smoking status: Patient reports the use of cigarette tobacco products, smokes one pack cigarettes per day. Screenin:00 Abuse screen: Denies threats or abuse. Denies injuries from another. Nutritional ld1 screening: No deficits noted. Tuberculosis screening: No symptoms or risk factors identified. Fall Risk None identified. Assessment: 22:00 Reassessment: See triage assessment. ld1 Vital Signs: 19:38 BP 106 / 68; Pulse 88; Resp 16; Temp 98.0; Pulse Ox 100% on R/A; Weight 83.01 kg; da3 Height 5 ft. 6 in. (167.64 cm); 22:00 Pulse 79; Resp 18; Pulse Ox 100% on R/A; ld1 19:38 Body Mass Index 29.54 (83.01 kg, 167.64 cm) da3 ED Course: 19:04 Patient arrived in ED. ja2 19:40 Triage completed. da3 21:41 Armando Augustin PA is PHCP. cp 21:41 Armando Zendejas MD is Attending Physician. cp 22:00 Patient has correct armband on for positive identification. Placed in gown. Bed in low ld1 position. Call light in reach. Side rails up X2. Pulse ox on. NIBP on. Door closed. Noise minimized. 22:00 No provider procedures requiring assistance completed. Patient did not have IV access ld1 during this emergency room visit. Administered Medications: 21:51 Drug: Zofran (Ondansetron) 4 mg Route: PO; ld1 Outcome: 21:49 Discharge ordered by . cp 22:01 Discharged to home ambulatory. ld1 22:01 Condition: stable 22:01 Discharge instructions given to patient, Instructed on discharge instructions, follow up and referral plans. Demonstrated understanding of instructions, follow-up care. 22:02 Patient left the ED. 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
[2021-08-01 22:20] VITALS: BP 106/68; TEMP 98; O2SAT 100
== END 2021-08-01 22:02 | disposition home or self-care (01) ==
LOC: ER 19:01
DX: U07.1 COVID-19 (principal); R11.2 Nausea with vomiting, unspecified
CPT/HCPCS: 0240U; 87070; 87081; 99283

== ENCOUNTER 2021-08-09 20:30 | Emergency (ER) | payer SELFPAY ==
--- NOTE | 2021-08-09 21:39 | EDPHYS ---
Physician Documentation [facility] Name: Luis Guerra Age: 31 yrs Sex: Male : 1990 Arrival Date: 08/09/2021 Time: 20:33 Bed Waiting Private MD: [place] [facility] ED Physician Kulwant Covington HPI: 08/09 21:40 This 31 yrs old Male presents to ER via Ambulatory with complaints of Covid Test. pm1 21:40 Associated signs and symptoms: The patient has no apparent associated signs or pm1 symptoms. The patient has not recently seen a physician. And was diagnosed with Covid on Jul 25. Initially with symptoms of body aches, nausea and vomiting which resolved by Aug 04. Patient has been symptom free since then. he is presenting her today to repeat covid test so he can return to work and feel comfortable around his infant. Historical: - Allergies: 21:27 Iodine; bb - Home Meds: 21:27 None [Active]; bb - PMHx: 21:27 None; bb - Immunization history:: Adult Immunizations up to date, Client reports having NOT received the Covid vaccine. - Social history:: Smoking status: Patient reports the use of cigarette tobacco products. ROS: 21:40 Constitutional: Negative for fever, chills, and weight loss, Eyes: Negative for injury, pm1 pain, redness, and discharge, ENT: Negative for injury, pain, and discharge, Cardiovascular: Negative for chest pain, palpitations, and edema, Respiratory: Negative for shortness of breath, cough, wheezing, and pleuritic chest pain, Abdomen/GI: Negative for abdominal pain, nausea, vomiting, diarrhea, and constipation, MS/Extremity: Negative for injury and deformity, Skin: Negative for injury, rash, and discoloration, Neuro: Negative for headache, weakness, numbness, tingling, and seizure. 21:40 All other systems are negative. Exam: 21:40 Constitutional: This is a well developed, well nourished patient who is awake, alert, pm1 and in no acute distress. Head/Face: Normocephalic, atraumatic. 21:40 Back: No spinal tenderness. No costovertebral tenderness. Full range of motion. Skin: Warm, dry with normal turgor. Normal color with no rashes, no lesions, and no evidence of cellulitis. MS/ Extremity: Pulses equal, no cyanosis. Neurovascular intact. Full, normal range of motion. 21:40 Cardiovascular: Exam negative for acute changes, Rate: normal, Rhythm: regular, Pulses: no pulse deficits are appreciated. 21:40 Respiratory: Exam negative for acute changes, respiratory distress, shortness of breath. 21:40 Abdomen/GI: Exam negative for acute changes, Palpation: abdomen is soft and non-tender, in all quadrants. 21:40 Neuro: Exam negative for acute changes, Orientation: is normal, Mentation: is normal, Motor: is normal, moves all fours. Vital Signs: 21:24 BP 134 / 86; Pulse 100; Resp 16 S; Temp 98.2(O); Pulse Ox 100% on R/A; Weight 78.47 kg bb (R); Height 5 ft. 6 in. (167.64 cm) (R); Pain 0/10; 21:24 Body Mass Index 27.92 (78.47 kg, 167.64 cm) bb MDM: 21:38 Data reviewed: vital signs. Data interpreted: Pulse oximetry: on room air is 100 %. pm1 Interpretation: normal. Counseling: I had a detailed discussion with the patient and/or guardian regarding: the historical points, exam findings, and any diagnostic results supporting the discharge/admit diagnosis, the need for outpatient follow up, to return to the emergency department if symptoms worsen or persist or if there are any questions or concerns that arise at home. 21:39 Patient medically screened. pm1 21:40 ED course: Patient came to the ER for screening of covid. Patient without any Covid pm1 symptoms since the of this month. Patient wants Covid test so he can return to work and have his infant child come home. 23:33 ED course: called and informed the patient that his covid test is positive. pm1 08/09 21:29 Order name: COVID-19 SARS RT PCR (Document "Date of Onset" if Symptomatic); Complete bb Time: 23:31 Administered Medications: No medications were administered Disposition: 08/10 04:25 Co-signature as Attending Physician, Kulwant Covington MD. mh7 Disposition Summary: 08/09/21 21:39 Discharge Ordered Location: Home pm1 Problem: new pm1 Symptoms: have improved pm1 Condition: Stable pm1 Diagnosis - Encounter for screening for other disorder - covid pm1 Followup: pm1 - With: Emergency Department - When: As needed - Reason: Worsening of condition Followup: pm1 - With: Private Physician - When: 2 - 3 days - Reason: Recheck today's complaints, Continuance of care, Re-evaluation by your physician Discharge Instructions: - Discharge Summary Sheet pm1 - COVID-19 pm1 - Symptoms of Coronavirus - [facility] pm1 - COVID-19: What Your Test Results Mean - [facility] pm1 - COVID-19 Frequently Asked Questions pm1 - COVID-19: Keep Your Baby Healthy and Safe - [facility] pm1 Forms: - Medication Reconciliation Form pm1 - Thank You Letter pm1 - Antibiotic Education pm1 - Prescription Opioid Use pm1 Signatures: Dispatcher [employer] Radha Mazariegos, JOSE C RN Jerome Saucedo, [employer] WORKER pm1 Kulwant Covington MD MD mh7
--- NOTE | 2021-08-09 21:39 | ER ---
Nurse's Notes [facility] Name: Luis Guerra Age: 31 yrs Sex: Male : 1990 Arrival Date: 08/09/2021 Time: 20:33 Bed Waiting Private MD: North Edwards E Diagnosis: Encounter for screening for other disorder-covid Presentation: 08/09 21:24 Chief complaint: Patient states: pt is here for a repeat Covid test to see if he is bb negative. Coronavirus screen: Client reports previous positive COVID test result. Ebola Screen: No symptoms or risks identified at this time. Initial Sepsis Screen: Does the patient meet any 2 criteria? No. Patient's initial sepsis screen is negative. Does the patient have a suspected source of infection? No. Patient's initial sepsis screen is negative. Risk Assessment: Do you want to hurt yourself or someone else? Patient reports no desire to harm self or others. Onset of symptoms was August 09, 2021. 21:24 Method Of Arrival: Ambulatory bb 21:24 Acuity: REINA 4 bb Triage Assessment: 21:27 General: Appears in no apparent distress. Behavior is calm, cooperative. Pain: Denies bb pain. Neuro: Level of Consciousness is awake, alert, obeys commands, Oriented to person, place, time, situation. Cardiovascular: Capillary refill < 3 seconds Patient's skin is warm and dry. Respiratory: Respiratory effort is even, unlabored, Respiratory pattern is regular. GI: No signs and/or symptoms were reported involving the gastrointestinal system. Derm: Skin is pink, warm \T\ dry. Musculoskeletal: Circulation, motion, and sensation intact. Historical: - Allergies: 21:27 Iodine; bb - Home Meds: 21:27 None [Active]; bb - PMHx: 21:27 None; bb - Immunization history:: Adult Immunizations up to date, Client reports having NOT received the Covid vaccine. - Social history:: Smoking status: Patient reports the use of cigarette tobacco products. Screenin:35 Abuse screen: Denies threats or abuse. Nutritional screening: No deficits noted. bb Tuberculosis screening: No symptoms or risk factors identified. Fall Risk None identified. Assessment: 21:35 Reassessment: No changes from previously documented assessment. Patient is alert, bb oriented x 3, equal unlabored respirations, skin warm/dry/pink. Jerome Sandoval SMOKE AND FLAME SPECIALIST in triage for pt evaluation. 21:54 Reassessment: pt verbalized understanding of and agrees to plan of care discharge bb instructions given pt will call back for results. Vital Signs: 21:24 BP 134 / 86; Pulse 100; Resp 16 S; Temp 98.2(O); Pulse Ox 100% on R/A; Weight 78.47 kg bb (R); Height 5 ft. 6 in. (167.64 cm) (R); Pain 0/10; 21:24 Body Mass Index 27.92 (78.47 kg, 167.64 cm) bb ED Course: 20:33 Patient arrived in ED. mr 20:33 North Edwards MD is Private Physician. mr 21:27 Triage completed. bb 21:27 Arm band placed on Patient placed in waiting room, Patient notified of wait time. covid bb swab sent. 21:35 Patient has correct armband on for positive identification. bb 21:35 No provider procedures requiring assistance completed. Patient did not have IV access bb during this emergency room visit. 21:38 Jerome Sandoval NP is PHCP. pm1 21:38 Kulwant Covington MD is Attending Physician. pm1 Administered Medications: No medications were administered Outcome: 21:39 Discharge ordered by MD. pm1 21:55 Discharged to home ambulatory. bb 21:55 Condition: stable 21:55 Discharge instructions given to patient, Instructed on discharge instructions, follow up and referral plans. Demonstrated understanding of instructions, follow-up care. 21:55 Patient left the ED. bb Signatures: Myrtle Nogueira mr Radha Spears, RN RN bb Jerome Sandoval NP SMOKE AND FLAME SPECIALIST pm1
[2021-08-09 22:24] VITALS: BP 134/86; TEMP 98.2; O2SAT 100
== END 2021-08-09 21:55 | disposition home or self-care (01) ==
LOC: ER 20:30
DX: U07.1 COVID-19 (principal)
CPT/HCPCS: 99281; U0003

== ENCOUNTER 2021-11-04 07:41 | Emergency (ER) | payer SELFPAY ==
--- NOTE | 2021-11-04 08:20 | EDPHYS ---
Physician Documentation [facility] Name: Luis Guerra Age: 31 yrs Sex: Male : 1990 Arrival Date: 11/04/2021 Time: 07:44 Bed 8 Private MD: North Edwards E ED Physician Nura Santiago HPI: 11/04 08:08 This 31 yrs old Male presents to ER via Ambulatory with complaints of Rib pain. pm1 08:08 The patient or guardian reports chest pain that is located primarily in the right pm1 lateral anterior chest. 08:08 Onset: The symptoms/episode began/occurred 3 day(s) ago. The pain does not radiate. pm1 Associated signs and symptoms: Pertinent negatives: abdominal pain, cough, nausea, shortness of breath, vomiting. The chest pain is described as sharp, feels like a bee sting. Duration: The patient or guardian reports a single episode, that is still ongoing. Modifying factors: the symptoms are aggravated by moving right arm upwards. Severity of pain: in the emergency department the pain has improved. The patient has not experienced similar symptoms in the past, Patient reports not similar to prior rib fractures. The patient has not recently seen a physician. Patient was working on a broken pipe in his house that was supported by a 2 x 4. Patient kicked the supporting 2 x 4 and the pipe hit his right rib cage. Patient with out any shortness of breath. 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 Historical: - Allergies: 08:13 Iodine; dw3 - Home Meds: 08:13 None [Active]; dw3 - PSHx: 08:13 Esophagus; dw3 - Immunization history:: Adult Immunizations not up to date. - Social history:: Smoking status: Patient reports the use of cigarette tobacco products, admits to heavy smoking , Patient uses. ROS: 08:08 Constitutional: Negative for fever, chills, and weight loss, Cardiovascular: Negative pm1 for chest pain, palpitations, and edema, Respiratory: Negative for shortness of breath, cough, wheezing, and pleuritic chest pain, Back: Negative for injury and pain, MS/Extremity: Negative for injury and deformity, Skin: Negative for injury, rash, and discoloration, Neuro: Negative for headache, weakness, numbness, tingling, and seizure. 08:08 All other systems are negative. Exam: 08:08 Constitutional: This is a well developed, well nourished patient who is awake, alert, pm1 and in no acute distress. Head/Face: Normocephalic, atraumatic. 08:08 Back: No spinal tenderness. No costovertebral tenderness. Full range of motion. Skin: Warm, dry with normal turgor. Normal color with no rashes, no lesions, and no evidence of cellulitis. MS/ Extremity: Pulses equal, no cyanosis. Neurovascular intact. Full, normal range of motion. 08:08 Eyes: Exam is negative for acute changes, Periorbital structures: no acute changes, Extraocular movements: no acute changes. 08:08 ENT: Exam is negative for acute changes, Mouth: no acute changes, Lips: normal, moist, Oral mucosa: normal, pink and intact, moist. 08:08 Chest/axilla: Inspection: normal, Palpation: tenderness, that is mild, that totally reproduces the patient's complaints, focal point pain to right lateral rib cage. 08:08 Cardiovascular: Exam negative for acute changes, Rate: normal, Rhythm: regular, Pulses: no pulse deficits are appreciated, Heart sounds: normal. 08:08 Respiratory: Exam negative for acute changes, respiratory distress, shortness of breath, Breath sounds: are clear throughout. 08:08 Abdomen/GI: Exam negative for acute changes, Inspection: abdomen appears normal, Palpation: abdomen is soft and non-tender, in all quadrants. 08:08 Neuro: Exam negative for acute changes, Orientation: is normal, Mentation: is normal, Motor: is normal, moves all fours. Vital Signs: 08:06 BP 121 / 78; Pulse 80; Resp 17; Temp 97.2; Pulse Ox 100% on R/A; Weight 78.47 kg; dw3 Height 5 ft. 6 in. (167.64 cm); Pain 5/10; 08:06 Body Mass Index 27.92 (78.47 kg, 167.64 cm) dw3 MDM: 07:54 Patient medically screened. pm1 08:08 ED course: Patient was working on a water pipe supported by a 2x4 in his house. He pm1 kicked the 2x4 and the pipe hit his right lateral rib cage area on Wednesday. He does not feel that he has a fractured rib because he has had those before. He just feels that it is a bruise. Therefore he refused a chest x-ray and is here primarily for a return to work excuse. Also he would like medications for the pain since the anti-inflammatories at home are not effective. He experiences pain, that feels like a bee sting with moving his arm and flexing at the shoulder. 08:08 Counseling: I had a detailed discussion with the patient and/or guardian regarding: the pm1 historical points, exam findings, and any diagnostic results supporting the discharge/admit diagnosis, the need for outpatient follow up, a family practitioner, to return to the emergency department if symptoms worsen or persist or if there are any questions or concerns that arise at home. 08:08 Data reviewed: vital signs. Data interpreted: Pulse oximetry: on room air is 100 %. pm1 Interpretation: normal. 08:08 Differential diagnosis: Blunt Chest Trauma Chest Wall Contusion Rib Fracture. pm1 Administered Medications: 08:25 Drug: Ketorolac 60 mg Route: IM; Site: left deltoid; vg1 08:35 Follow up: Response: No adverse reaction vg1 08:35 Drug: Lidoderm Patch 5 % (700 mg/patch) 1 patches Route: Topical; Site: affected area; vg1 08:35 Follow up: Response: No adverse reaction vg1 Disposition: 21:01 Co-signature as Attending Physician, Nura Santiago DO I agree with the assessment and ms3 plan of care. Disposition Summary: 11/04/21 08:19 Discharge Ordered Location: Home pm1 Problem: new pm1 Symptoms: have improved pm1 Condition: Stable pm1 Diagnosis - Contusion of thorax - right lateral rib cage pm1 Followup: pm1 - With: Emergency Department - When: As needed - Reason: Worsening of condition Followup: pm1 - With: Private Physician - When: 2 - 3 days - Reason: Recheck today's complaints, Continuance of care, Re-evaluation by your physician Discharge Instructions: - Discharge Summary Sheet pm1 - Contusion pm1 - Rib Contusion pm1 Forms: - Medication Reconciliation Form pm1 - Thank You Letter pm1 - Antibiotic Education pm1 - Prescription Opioid Use pm1 - Work release form pm1 Prescriptions: - Lidoderm 5 % Topical adhesive patch,medicated - apply 1 patch by TRANSDERMAL route once daily As needed; 10 patch; Refills: 0, pm1 Product Selection Permitted - Cyclobenzaprine 10 mg Oral Tablet - take 1 tablet by ORAL route every 8 hours As needed; 30 tablet; Refills: 0, pm1 Product Selection Permitted - Tylenol-Codeine #3 300 mg-30 mg Oral - take 2 tablet by ORAL route every 6 hours As needed; 20 tablet; Refills: 0, pm1 Product Selection Permitted Signatures: Jerome Sandoval, [employer]NER GENERAL MAINTENANCE MECHANIC pm1 Cheryl Mitchell, RN RN vg1 Nura Santiago DO DO ms3 Maria Elena Garcia RN RN dw3 Corrections: (The following items were deleted from the chart) 11:50 08:08 Patient was working on a broken pipe in his house that was supported by a 2 x 4. pm1 Patient kicked the supporting 2 x 4 in the [place] hit his right rib cage. Patient with out any shortness of breath. 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 pm1
--- NOTE | 2021-11-04 08:20 | ER ---
Nurse's Notes [facility] Name: Luis Guerra Age: 31 yrs Sex: Male : 1990 Arrival Date: 11/04/2021 Time: 07:44 Bed 8 Private MD: North Edwards E Diagnosis: Contusion of thorax-right lateral rib cage Presentation: 11/04 08:06 Chief complaint: Patient states: pt complains of right side pain due to pipe bursting dw3 in his home on Wednesday, and hitting him on his right side chest wall. Coronavirus screen: Vaccine status: Patient reports being unvaccinated. Client denies travel out of the [place] in the last 14 days. Ebola Screen: Patient denies travel to an Ebola-affected area in the 21 days before illness onset. Initial Sepsis Screen: Does the patient meet any 2 criteria? No. Patient's initial sepsis screen is negative. Does the patient have a suspected source of infection? No. Patient's initial sepsis screen is negative. Risk Assessment: Do you want to hurt yourself or someone else? Patient reports no desire to harm self or others. Onset of symptoms was November 02, 2021. 08:06 Method Of Arrival: Ambulatory dw3 08:06 Acuity: REINA 4 dw3 Triage Assessment: 08:13 General: Appears in no apparent distress. Behavior is calm, cooperative. Pain: dw3 Complains of pain in right lateral anterior chest and right lateral posterior chest. EENT: No signs and/or symptoms were reported regarding the EENT system. Neuro: Level of Consciousness is awake, alert, obeys commands, Oriented to person, place, time, situation, Gait is steady, Speech is normal. Cardiovascular: Denies chest pain, shortness of breath, Patient's skin is warm and dry. Rhythm is regular. Respiratory: Airway is patent Respiratory effort is even, unlabored, Respiratory pattern is regular. GI: No signs and/or symptoms were reported involving the gastrointestinal system. : No signs and/or symptoms were reported regarding the genitourinary system. Derm: No signs and/or symptoms reported regarding the dermatologic system. Skin is healthy with good turgor, Skin is pink, warm \T\ dry. Historical: - Allergies: 08:13 Iodine; dw3 - Home Meds: 08:13 None [Active]; dw3 - PSHx: 08:13 Esophagus; dw3 - Immunization history:: Adult Immunizations not up to date. - Social history:: Smoking status: Patient reports the use of cigarette tobacco products, admits to heavy smoking , Patient uses. Screenin:20 Abuse screen: Denies threats or abuse. Denies injuries from another. Nutritional dw3 screening: No deficits noted. Tuberculosis screening: No symptoms or risk factors identified. Fall Risk None identified. Assessment: 08:20 Reassessment: Patient and/or family updated on plan of care and expected duration. Pain dw3 level reassessed. Patient is alert, oriented x 3, equal unlabored respirations, skin warm/dry/pink. see triage note. Vital Signs: 08:06 BP 121 / 78; Pulse 80; Resp 17; Temp 97.2; Pulse Ox 100% on R/A; Weight 78.47 kg; dw3 Height 5 ft. 6 in. (167.64 cm); Pain 5/10; 08:06 Body Mass Index 27.92 (78.47 kg, 167.64 cm) dw3 ED Course: 07:44 Patient arrived in ED. mr 07:44 North Edwards MD is Private Physician. mr 07:45 Jerome Sandoval NP is PHCP. pm1 07:45 Nura Santiago DO is Attending Physician. pm1 08:13 Triage completed. dw3 08:13 Arm band placed on right wrist. dw3 08:20 Patient has correct armband on for positive identification. Bed in low position. Call dw3 light in reach. Side rails up X 1. monitoring engineer on. Pulse ox on. NIBP on. 08:22 Cheryl Mitchell, RN is Primary Nurse. vg1 08:40 No provider procedures requiring assistance completed. Patient did not have IV access dw3 during this emergency room visit. Administered Medications: 08:25 Drug: Ketorolac 60 mg Route: IM; Site: left deltoid; vg1 08:35 Follow up: Response: No adverse reaction vg1 08:35 Drug: Lidoderm Patch 5 % (700 mg/patch) 1 patches Route: Topical; Site: affected area; vg1 08:35 Follow up: Response: No adverse reaction vg1 Outcome: 08:19 Discharge ordered by . pm1 08:39 Discharged to home ambulatory. dw3 08:39 Condition: stable 08:39 Discharge instructions given to patient, Instructed on discharge instructions, follow up and referral plans. no drinking with medication, no driving heavy equipment, medication usage, benefits of quitting smoking, safety practices, Demonstrated understanding of instructions, follow-up care, medications, Prescriptions given X 3. 08:41 Patient left the ED. dw3 Signatures: Myrtle Nogueira JaimeJerome, [employer]NER CLINICAL EDUCATION ASSISTANT pm1 Cheryl Mitchell RN RN vg1 Maria Elena Garcia RN RN dw3
[2021-11-04] MEDS ORDERED: KETOROLAC 30 MG/ML INJ ONE (08:22)
[2021-11-04] MEDS ORDERED: LIDOCAINE 4% PATCH ONE (08:24)
[2021-11-04 08:45] VITALS: BP 121/78; TEMP 97.2; O2SAT 100
== END 2021-11-04 08:41 | disposition home or self-care (01) ==
LOC: ER 07:41
DX: S20.211A Contusion of right front wall of thorax, initial encounter (principal); W22.8XXA Striking against or struck by other objects, initial encounter; F17.210 Nicotine dependence, cigarettes, uncomplicated; Z91.048 Other nonmedicinal substance allergy status
CPT/HCPCS: 96372; 99284

== ENCOUNTER 2022-01-20 07:17 | Emergency (ER) | payer SELFPAY ==
[2022-01-20] MEDS ORDERED: predniSONE 10 MG TAB ONE (10:00)
--- NOTE | 2022-01-20 10:25 | EDPHYS ---
Physician Documentation [facility] Name: Luis Guerra Age: 31 yrs Sex: Male : 1990 Arrival Date: 01/20/2022 Time: 07:19 Bed 12 Private MD: North Edwards E ED Physician Nura Santiago HPI: 01/20 07:57 This 31 yrs old Male presents to ER via Ambulatory with complaints of Sore aj3 Throat, nasal and chest congestion. 07:57 The patient presents with sore throat. Onset: The symptoms/episode began/occurred aj3 acutely, 4 day(s) ago. Modifying factors: The symptoms are alleviated by over the counter medications. Associated signs and symptoms: Pertinent positives: cough, rhinorrhea, Sore throat. Associated signs and symptoms: Pertinent negatives chest pain, chills, diarrhea, fever, headache, nausea, shortness of breath, vomiting. +nasal congestion. . Historical: - Allergies: 07:42 Iodine; iw - Home Meds: 07:42 None [Active]; iw - PMHx: 07:42 None; iw - PSHx: 07:42 Esophagus; iw - Immunization history:: Client reports having NOT received the Covid vaccine. - Social history:: Smoking status: Patient reports the use of cigarette tobacco products. ROS: 07:57 Constitutional: Negative for fever, chills, and weight loss, Eyes: Negative for injury, aj3 pain, redness, and discharge, Cardiovascular: Negative for chest pain, palpitations, and edema, Respiratory: Negative for shortness of breath, cough, wheezing, and pleuritic chest pain, Abdomen/GI: Negative for abdominal pain, nausea, vomiting, diarrhea, and constipation, Back: Negative for injury and pain, MS/Extremity: Negative for injury and deformity, Skin: Negative for injury, rash, and discoloration, Neuro: Negative for syncope, headache, weakness, numbness, tingling, and seizure, Endocrine: Negative for neck swelling, polydipsia, polyuria, polyphagia, and marked weight changes. 07:57 ENT: Positive for nasal discharge, sinus congestion, sore throat. 07:57 Respiratory: Positive for cough, Negative for dyspnea on exertion, hemoptysis, shortness of breath, sputum production, wheezing. 07:57 Abdomen/GI: Negative for Exam: 07:57 Constitutional: This is a well developed, well nourished patient who is awake, alert, aj3 and in no acute distress. Head/Face: Normocephalic, atraumatic. Eyes: Pupils equal round and reactive to light, extra-ocular motions intact. Lids and lashes normal. Conjunctiva and sclera are non-icteric and not injected. Cornea within normal limits. Periorbital areas with no swelling, redness, or edema. Neck: Trachea midline, no thyromegaly or masses palpated, and no cervical lymphadenopathy. Supple, full range of motion without nuchal rigidity, or vertebral point tenderness. No Meningismus. Chest/axilla: Normal chest wall appearance and motion. Nontender with no deformity. No lesions are appreciated. Cardiovascular: Regular rate and rhythm with a normal S1 and S2. No gallops, murmurs, or rubs. Normal PMI, no JVD. No pulse deficits. Respiratory: Lungs have equal breath sounds bilaterally, clear to auscultation and percussion. No rales, rhonchi or wheezes noted. No increased work of breathing, no retractions or nasal flaring. Abdomen/GI: Soft, non-tender, with normal bowel sounds. No distension or tympany. No guarding or rebound. No evidence of tenderness throughout. Back: No spinal tenderness. No costovertebral tenderness. Full range of motion. Skin: Warm, dry with normal turgor. Normal color with no rashes, no lesions, and no evidence of cellulitis. MS/ Extremity: Pulses equal, no cyanosis. Neurovascular intact. Full, normal range of motion. Neuro: Awake and alert, GCS 15, oriented to person, place, time, and situation. Cranial nerves II-XII grossly intact. Motor strength 5/5 in all extremities. Sensory grossly intact. Cerebellar exam normal. Normal gait. Psych: Awake, alert, with orientation to person, place and time. Behavior, mood, and affect are within normal limits. 07:57 ENT: Exam is negative for sinus tenderness, peritonsillar abscess exudate, External ear(s): are unremarkable, Ear canal(s): are normal, TM's: are normal, Nose: Nasal mucosa: edematous, erythematous, Mouth: is normal, Posterior pharynx: erythema. Vital Signs: 07:43 Pulse 93; Resp 16; Temp 98.6; Pulse Ox 99% on R/A; Weight 85.73 kg; Height 5 ft. 6 in. iw (167.64 cm); 07:43 BP 120 / 64; iw 07:43 Body Mass Index 30.51 (85.73 kg, 167.64 cm) iw MDM: 07:52 Patient medically screened. ms3 11:42 Data reviewed: vital signs, nurses notes, lab test result(s). Counseling: I had a aj3 detailed discussion with the patient and/or guardian regarding: the historical points, exam findings, and any diagnostic results supporting the discharge/admit diagnosis, lab results, to return to the emergency department if symptoms worsen or persist or if there are any questions or concerns that arise at home. ED course: COVID-19 discharge instructions were given as well as other supportive measures while at home. Strict ER return precautions discussed. All questions answered and patient verbalized understanding of treatment plan.. 01/20 08:01 Order name: COVID-19 SARS RT PCR (Document "Date of Onset" if Symptomatic); Complete kj1 Time: 10:17 01/20 08:01 Order name: Flu; Complete Time: 10:17 kj1 Administered Medications: 09:57 Drug: predniSONE 20 mg Route: PO; iw Disposition: 21:59 Co-signature as Attending Physician, Nura Santiago DO I was immediately available on-site ms3 in the Emergency Department for consultation in the care of the patient. . Disposition Summary: 01/20/22 10:25 Discharge Ordered Location: Home aj3 Problem: new aj3 Symptoms: are unchanged aj3 Condition: Stable aj3 Diagnosis - Covid-19 aj3 Followup: aj3 - With: - When: 1 week - Reason: Re-evaluation by your physician Discharge Instructions: - Discharge Summary Sheet aj3 - 10 Things You Can Do to Manage Your COVID-19 Symptoms at Home - [facility] aj3 Forms: - Work release form aj3 - Medication Reconciliation Form aj3 - Thank You Letter aj3 - Antibiotic Education aj3 - Prescription Opioid Use aj3 Prescriptions: - Bromfed DM 2-30-10 mg/5 mL Oral syrup - take 10 milliliter by ORAL route every 4 hours; 100 milliliter; Refills: 0, aj3 Product Selection Permitted Signatures: Dispatcher [employer] Mira Donohue, RN RN iw Nura Santiago DO DO ms3 Leslie Ceja, NUTRITION SERVICES ASSISTANT NUTRITION SERVICES ASSISTANT aj3
--- NOTE | 2022-01-20 10:25 | ER ---
Nurse's Notes [facility] Name: Luis Guerra Age: 31 yrs Sex: Male : 1990 Arrival Date: 01/20/2022 Time: 07:19 Bed 12 Private MD: North Edwards E Diagnosis: Covid-19 Presentation: 01/20 07:42 Chief complaint: Patient states: sore thrtoat since Wednesday night, congestion, cough. iw Coronavirus screen: Client presents with at least one sign or symptom that may indicate coronavirus-19. Ebola Screen: Patient negative for fever greater than or equal to 101.5 degrees Fahrenheit, and additional compatible Ebola Virus Disease symptoms Patient denies exposure to infectious person. Patient denies travel to an Ebola-affected area in the 21 days before illness onset. No symptoms or risks identified at this time. Initial Sepsis Screen: Does the patient meet any 2 criteria? No. Patient's initial sepsis screen is negative. Does the patient have a suspected source of infection? No. Patient's initial sepsis screen is negative. 07:42 Method Of Arrival: Ambulatory iw 07:43 Risk Assessment: Do you want to hurt yourself or someone else? Patient reports no iw desire to harm self or others. Onset of symptoms was January 17, 2022. 07:43 Acuity: REINA 4 iw Historical: - Allergies: 07:42 Iodine; iw - Home Meds: 07:42 None [Active]; iw - PMHx: 07:42 None; iw - PSHx: 07:42 Esophagus; iw - Immunization history:: Client reports having NOT received the Covid vaccine. - Social history:: Smoking status: Patient reports the use of cigarette tobacco products. Screenin:22 Abuse screen: Denies threats or abuse. Denies injuries from another. Nutritional iw screening: No deficits noted. Tuberculosis screening: No symptoms or risk factors identified. Fall Risk None identified. Assessment: 08:22 General: Appears in no apparent distress. Behavior is calm, cooperative. Neuro: iw Hernadez Agitation-Sedation Scale (RASS): 0 - Alert and Calm Level of Consciousness is awake, alert, obeys commands, Oriented to person, place, time, situation. Cardiovascular: Patient's skin is warm and dry. Respiratory: Airway is patent Respiratory effort is even, unlabored, Breath sounds are clear bilaterally. EENT: Throat. Vital Signs: 07:43 Pulse 93; Resp 16; Temp 98.6; Pulse Ox 99% on R/A; Weight 85.73 kg; Height 5 ft. 6 in. iw (167.64 cm); 07:43 BP 120 / 64; iw 07:43 Body Mass Index 30.51 (85.73 kg, 167.64 cm) iw ED Course: 07:19 Patient arrived in ED. as 07:19 North Edwards MD is Private Physician. as 07:36 Nura Santiago DO is Attending Physician. ms3 07:43 Triage completed. iw 07:43 Arm band placed on. iw 07:54 [facility] Ceja NP is [facility] aj3 08:03 Mira Jaramillo, JOSE C is Primary Nurse. iw 10:25 North Edwards MD is Referral Physician. aj3 10:42 Patient has correct armband on for positive identification. iw 10:42 No provider procedures requiring assistance completed. Patient did not have IV access iw during this emergency room visit. Administered Medications: 09:57 Drug: predniSONE 20 mg Route: PO; iw Medication: 10:42 VIS not applicable for this client. iw Outcome: 10:25 Discharge ordered by . aj3 10:42 Discharged to home ambulatory. iw 10:42 Condition: good 10:42 Discharge instructions given to patient, Instructed on discharge instructions, follow up and referral plans. medication usage, Demonstrated understanding of instructions, follow-up care, medications, Prescriptions given X 1. 10:42 Patient left the ED. iw Signatures: Pamela Lane as Mira Jaramillo, RN RN iw Nura Santiago DO DO ms3 Leslie Ceja NP [employer] aj3
[2022-01-20 10:50] VITALS: BP 120/64; TEMP 98.6; O2SAT 99
== END 2022-01-20 10:42 | disposition home or self-care (01) ==
LOC: ER 07:17
DX: U07.1 COVID-19 (principal); Z72.0 Tobacco use; Z91.048 Other nonmedicinal substance allergy status
CPT/HCPCS: 87804; 99283; J7512; U0003

== ENCOUNTER 2022-09-03 09:00 | Emergency (ER) | payer SELFPAY ==
--- NOTE | 2022-09-03 09:48 | RAD REPORT ---
EXAM DESCRIPTION: USExtremity Venous Uni Ltd09/03/2022 9:40 am CLINICAL HISTORY: left leg pain COMPARISON: None FINDINGS: Left common femoral, superficial femoral, greater saphenous, popliteal and posterior tibi al veins are compressible and demonstrate augmentation. Doppler demonstrates good flow. Grayscale, color and spectral analysis performed on all vessels IMPRESSION: No evidence of deep venous thrombosis involving the left lower extremity.
--- NOTE | 2022-09-03 09:56 | RAD REPORT ---
EXAM DESCRIPTION: CTSpine Lumbar Wo Con09/03/2022 9:40 am CLINICAL HISTORY: Left leg numbness COMPARISON: None TECHNIQUE: Computed axial tomography lumbar spine was obtained with coronal and sagittal reconstruct ion. All CT scans are performed using dose optimization technique as appropriate and may include automated exposure control or mA/KV adjustment according to patient size. FINDINGS: No fracture is seen No dislocation No significant disc bulge herniation noted. Central/foraminal stenosis is not seen. 3 millimeter calculus right kidney. No hydronephrosis visualized IMPRESSION: No significant lumbar spine abnormality is displayed. If patient's symptoms persist MRI would be recommended
--- NOTE | 2022-09-03 10:14 | ER ---
Nurse's Notes [facility] Name: Luis Guerra Age: 32 yrs Sex: Male : 1990 Arrival Date: 09/03/2022 Time: 09:02 Bed IW2 Private MD: Diagnosis: Pain in left thigh Presentation: 09/03 09:10 Chief complaint: Patient states: left thigh pain and numbness that began 2 months ago. 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 Coronavirus screen: At this time, the client does not indicate any symptoms associated with coronavirus-19. Ebola Screen: Patient denies travel to an Ebola-affected area in the 21 days before illness onset. Initial Sepsis Screen: Does the patient meet any 2 criteria? No. Patient's initial sepsis screen is negative. Does the patient have a suspected source of infection? No. Patient's initial sepsis screen is negative. Risk Assessment: Do you want to hurt yourself or someone else? Patient reports no desire to harm self or others. Onset of symptoms was August 2022. 09:10 Method Of Arrival: Ambulatory [facility] 09:10 Acuity: REINA 4 aa5 Historical: - Allergies: 09:09 Iodine; aa5 - PMHx: 09:10 None; aa5 - PSHx: 09:09 Esophagus; aa5 - Immunization history:: Adult Immunizations unknown. - Social history:: Smoking status: Patient reports the use of cigarette tobacco products, smokes two packs cigarettes per day. Assessment: 10:33 Reassessment: Patient is alert, oriented x 3, equal unlabored respirations, skin aa5 warm/dry/pink. Vital Signs: 09:10 BP 141 / 88; Pulse 86; Resp 16 S; Temp 97.0(TE); Pulse Ox 99% on R/A; Weight 85.73 kg aa5 (R); Height 5 ft. 6 in. (167.64 cm) (R); 09:10 Body Mass Index 30.51 (85.73 kg, 167.64 cm) [facility] NIH Stroke Scale Scores: 09:00 NIHSS Score: 0 [facility] ED Course: 09:02 Patient arrived in ED. as 09:02 Navya Balderas FNP [facility] 09:03 Armando Zendejas MD is Attending Physician. 7 09:09 Arm band placed on. aa5 09:11 Triage completed. aa5 09:42 CT Lumbar Spine Wo Con In Process Unspecified. EDMS 09:42 US Extremity Venous Unilateral Ltd In Process Unspecified. EDMS 10:34 No provider procedures requiring assistance completed. Patient did not have IV access aa5 during this emergency room visit. Administered Medications: No medications were administered Medication: 10:34 VIS not applicable for this client. aa5 Outcome: 10:14 Discharge ordered by . jh7 10:33 Discharged to home ambulatory. aa5 10:33 Condition: stable 10:33 Discharge instructions given to patient, Instructed on discharge instructions, follow up and referral plans. medication usage, Demonstrated understanding of instructions, follow-up care, medications, Prescriptions given X 2. 10:34 Patient left the ED. aa5 NIH Stroke Scale - NIH Stroke Score Date: 09/03/2022 Time: 09:00 Total Score = 0 1a. Level of Consciousness (LOC) - 0(Alert) 1b. Level of Consciousness (LOC) (Month \T\ Age) - 0(Both) 1c. LOC Commands (Open \T\ Closes Eyes/Loading Machine Adjuster) - 0(Both) 2. Best Gaze (Lateral Gaze Paresis) - 0(Normal) 3. Visual Field Loss - 0(No visual loss) 4. Facial Palsy - 0(Normal) 5a. Left Arm: Motor (10-second hold) - 0(No drift) 5b. Right Arm: Motor (10-second hold) - 0(No drift) 6a. Left Leg: Motor (5-second hold - always test supine) - 0(No drift) 6b. Right Leg: Motor (5-second hold - always test supine) - 0(No drift) 7. Limb Ataxia (finger/nose \T\ heel/guerrero - test with eyes open) - 0(Absent) 8. Sensory Loss (pinprick arms/legs/face) - 0(Normal) 9. Best Language: Aphasia (description/naming/reading) - 0(No aphasia) 10. Dysarthria (speech clarity - read or repeat words) - 0(Normal) 11. Extinction and Inattention (visual/tactile/auditory/spatial/personal) - 0(No abnormality) Initials: [facility] Signatures: Dispatcher [employer] Pamela Willoughby Audri, RN RN aa5 Navya Balderas, CLIENT SERVICES ADMINISTRATOR CLIENT SERVICES ADMINISTRATOR jh7
--- NOTE | 2022-09-03 10:14 | EDPHYS ---
Physician Documentation [facility] Name: Luis Guerra Age: 32 yrs Sex: Male : 1990 Arrival Date: 09/03/2022 Time: 09:02 Bed IW2 Private MD: ED Physician Armando Zendejas HPI: 09/03 09:00 This 32 yrs old Male presents to ER via Ambulatory with complaints of Leg Pain, jh7 Numbness. 09:00 The patient presents with pain, that is acute, Numbness. The complaints affect the left jh7 quadriceps. Context: resulted from an unknown cause, the patient can fully bear weight, the patient is able to ambulate, Problem is a result from a previous injury: No. Onset: The symptoms/episode began/occurred 2 month(s) ago. Associated signs and symptoms: The patient has no apparent associated signs or symptoms, Pertinent negatives calf tenderness, fever, swelling, Dizziness, headache, syncope, visual changes, facial droop, gait changes. Historical: - Allergies: 09:09 Iodine; aa5 - PMHx: 09:10 None; aa5 - PSHx: 09:09 Esophagus; aa5 - Immunization history:: Adult Immunizations unknown. - Social history:: Smoking status: Patient reports the use of cigarette tobacco products, smokes two packs cigarettes per day. ROS: 09:00 Constitutional: Negative for fever, chills, and weight loss, Eyes: Negative for injury, jh7 pain, redness, and discharge, ENT: Negative for injury, pain, and discharge, Neck: Negative for injury, pain, and swelling, Cardiovascular: Negative for chest pain, palpitations, and edema, Respiratory: Negative for shortness of breath, cough, wheezing, and pleuritic chest pain, Abdomen/GI: Negative for abdominal pain, nausea, vomiting, diarrhea, and constipation, Back: Negative for injury and pain, Skin: Negative for injury, rash, and discoloration, Neuro: Negative for headache, weakness, numbness, tingling, and seizure. 09:00 MS/extremity: Positive for pain, numbness, Negative for injury or acute deformity, decreased range of motion, erythema, swelling, tenderness, tingling, warmth. 09:00 All other systems are negative. Exam: 09:00 Constitutional: This is a well developed, well nourished patient who is awake, alert, jh7 and in no acute distress. Head/Face: Normocephalic, atraumatic. Neck: Trachea midline, no thyromegaly or masses palpated, and no cervical lymphadenopathy. Supple, full range of motion without nuchal rigidity, or vertebral point tenderness. No Meningismus. Cardiovascular: Regular rate and rhythm with a normal S1 and S2. No gallops, murmurs, or rubs. Normal PMI, no JVD. No pulse deficits. Respiratory: Lungs have equal breath sounds bilaterally, clear to auscultation and percussion. No rales, rhonchi or wheezes noted. No increased work of breathing, no retractions or nasal flaring. Back: No spinal tenderness. No costovertebral tenderness. Full range of motion. Skin: Warm, dry with normal turgor. Normal color with no rashes, no lesions, and no evidence of cellulitis. MS/ Extremity: Pulses equal, no cyanosis. Neurovascular intact. Full, normal range of motion. 09:00 Neuro: Orientation: is normal, Mentation: is normal, Memory: is normal, Cranial nerves: grossly normal, Cerebellar function: is grossly normal, Motor: is normal, Sensation: is normal, Patient reports mild numbness localized to the anterior thigh over the quadriceps muscle., Gait: is steady, at a normal pace. Vital Signs: 09:10 BP 141 / 88; Pulse 86; Resp 16 S; Temp 97.0(TE); Pulse Ox 99% on R/A; Weight 85.73 kg aa5 (R); Height 5 ft. 6 in. (167.64 cm) (R); 09:10 Body Mass Index 30.51 (85.73 kg, 167.64 cm) aa5 NIH Stroke Scale Scores: 09:00 NIHSS Score: 0 [facility] MDM: 09:03 Patient medically screened. [facility] 10:18 Differential diagnosis: tendonitis, Quadricep muscle strain, lumbar stenosis, DVT. Data [facility] reviewed: vital signs, nurses notes, radiologic studies, CT scan, ultrasound. I considered the following discharge prescriptions or medication management in the emergency department Prescribed anti-inflammatory medications for pain. Counseling: I had a detailed discussion with the patient and/or guardian regarding: the historical points, exam findings, and any diagnostic results supporting the discharge/admit diagnosis, to return to the emergency department if symptoms worsen or persist or if there are any questions or concerns that arise at home. 09/03 09:14 Order name: CT Lumbar Spine Wo Con; Complete Time: 10:13 [facility] 09/03 09:14 Order name: US Extremity Venous Unilateral Ltd; Complete Time: 09:52 [facility] Administered Medications: No medications were administered Disposition Summary: 09/03/22 10:14 Discharge Ordered Location: Home [facility] Problem: new [facility] Symptoms: are unchanged [facility] Condition: Stable [facility] Diagnosis - Pain in left thigh [facility] Followup: [facility] - With: Private Physician - When: 2 - 3 days - Reason: Recheck today's complaints Discharge Instructions: - Discharge Summary Sheet [facility] - Musculoskeletal Pain [facility] Forms: - Medication Reconciliation Form [facility] - Work release form 7 - Thank You Letter [facility] Prescriptions: - Naprosyn 500 mg Oral Tablet - take 1 tablet by ORAL route 2 times per day take with food; 30 tablet; Refills: [facility] 0, Product Selection Permitted - Zanaflex 4 mg Oral Tablet - take 1 tablet by ORAL route every 8 hours As needed; 20 tablet; Refills: 0, [facility] Product Selection Permitted NIH Stroke Scale - NIH Stroke Score Date: 09/03/2022 Time: 09:00 Total Score = 0 1a. Level of Consciousness (LOC) - 0(Alert) 1b. Level of Consciousness (LOC) (Month \T\ Age) - 0(Both) 1c. LOC Commands (Open \T\ Closes Eyes/Assistant Child Care Teacher) - 0(Both) 2. Best Gaze (Lateral Gaze Paresis) - 0(Normal) 3. Visual Field Loss - 0(No visual loss) 4. Facial Palsy - 0(Normal) 5a. Left Arm: Motor (10-second hold) - 0(No drift) 5b. Right Arm: Motor (10-second hold) - 0(No drift) 6a. Left Leg: Motor (5-second hold - always test supine) - 0(No drift) 6b. Right Leg: Motor (5-second hold - always test supine) - 0(No drift) 7. Limb Ataxia (finger/nose \T\ heel/guerrero - test with eyes open) - 0(Absent) 8. Sensory Loss (pinprick arms/legs/face) - 0(Normal) 9. Best Language: Aphasia (description/naming/reading) - 0(No aphasia) 10. Dysarthria (speech clarity - read or repeat words) - 0(Normal) 11. Extinction and Inattention (visual/tactile/auditory/spatial/personal) - 0(No abnormality) Initials: jh7 Addendum: 09/04/2022 13:29 Co-signature as Attending Physician, Armando Zendejas MD I agree with the susy assessment and plan of care. Signatures: Dispatcher [employer] EDArmando Fisher MD MD cha Calderon, Audri, RN RN aa5 Navya Balderas, CODING QUALITY ANALYST CODING QUALITY ANALYST 7
[2022-09-03 10:39] VITALS: BP 141/88; TEMP 97; O2SAT 99
== END 2022-09-03 10:34 | disposition home or self-care (01) ==
LOC: ER 09:00
DX: M79.652 Pain in left thigh (principal); R20.0 Anesthesia of skin; F17.210 Nicotine dependence, cigarettes, uncomplicated; Z91.048 Other nonmedicinal substance allergy status
CPT/HCPCS: 72131; 93971; 99283

== ENCOUNTER 2023-06-25 13:38 | Emergency (ER) | payer SELFPAY ==
[2023-06-25] MEDS ORDERED: LIDOCAINE 2% W/EPI 1:200,000 MPF 20 ML VIAL IM ONE (14:07)
--- NOTE | 2023-06-25 14:24 | ER ---
Nurse's Notes [facility] Name: Luis Guerra Age: 32 yrs Sex: Male : 1990 Arrival Date: 06/25/2023 Time: 13:38 Bed 16 Private MD: Diagnosis: Cutaneous abscess of groin Presentation: 06/25 13:44 Chief complaint: Patient states: abscess "below the waist line" onset 2-3 days ago. cm10 Coronavirus screen: Vaccine status: Patient reports being unvaccinated. Client denies travel out of the [place] in the last 14 days. Ebola Screen: Patient denies travel to an Ebola-affected area in the 21 days before illness onset. No symptoms or risks identified at this time. Initial Sepsis Screen: Does the patient meet any 2 criteria? No. Patient's initial sepsis screen is negative. Does the patient have a suspected source of infection? Yes: Skin breakdown/wound. Risk Assessment: Do you want to hurt yourself or someone else? Patient reports no desire to harm self or others. Onset of symptoms was June 25, 2023. 13:44 Method Of Arrival: Ambulatory cm10 13:44 Acuity: REINA 4 cm10 Triage Assessment: 13:48 General: Appears in no apparent distress. comfortable, Behavior is calm, cooperative. cm10 Pain: Complains of pain in groin. Historical: - Allergies: 13:47 Iodine (Anaphylaxis); cm10 - PMHx: 13:47 None; cm10 - PSHx: 13:47 Esophagus; cm10 - Immunization history:: Adult Immunizations unknown. - Social history:: Smoking status: Patient reports the use of cigarette tobacco products, smokes one pack cigarettes per day. - Family history:: not pertinent. - Hospitalizations: : No recent hospitalization is reported. Screenin:01 [facility] ED Fall Risk Assessment (Adult) History of falling in the last 3 months, db including since admission No falls in past 3 months (0 pts) Confusion or Disorientation No (0 pts) Intoxicated or Sedated No (0 pts) Impaired Gait No (0 pts) Mobility Assist Device Used No (0 pt) Altered Elimination No (0 pt) Score/Fall Risk Level 0 - 2 = Low Risk Oriented to surroundings, Maintained a safe environment. Abuse screen: Denies threats or abuse. Denies injuries from another. Nutritional screening: No deficits noted. Tuberculosis screening: No symptoms or risk factors identified. Assessment: 14:00 Reassessment: Patient appears in no apparent distress at this time. Patient and/or db family updated on plan of care and expected duration. Pain level reassessed. Patient is alert, oriented x 3, equal unlabored respirations, skin warm/dry/pink. ABSCESS TO MIDDLE TOP PELVIC REGION. General: Appears in no apparent distress. comfortable, Behavior is calm, cooperative. Pain: Complains of pain in pelvis. Neuro: Level of Consciousness is awake, alert, obeys commands, Oriented to person, place, time, situation. Respiratory: Airway is patent Respiratory effort is even, unlabored, Respiratory pattern is regular, symmetrical. Derm: Abscess located on pelvis is quarter sized. Vital Signs: 13:44 BP 155 / 77; Pulse 79; Resp 18 S; Temp 98.2(TE); Pulse Ox 100% on R/A; Weight 85.73 kg cm10 (R); Height 5 ft. 6 in. ; Pain 8/10; 13:54 BP 136 / 68; Pulse 77; Resp 16; Pulse Ox 99% on R/A; db 14:30 BP 127 / 69; Pulse 84; Resp 16; Pulse Ox 95% on R/A; db 13:44 Body Mass Index 30.51 (85.73 kg, 167.64 cm) cm10 13:44 Pain Scale: Adult cm10 ED Course: 13:40 Patient arrived in ED. mr 13:42 Du Ramos MD is Attending Physician. rn 13:47 Triage completed. cm10 13:48 Arm band placed on Patient placed in an exam room, on a stretcher. cm10 14:15 Assist provider with I \\T\\ D: of an abscess on Set up I\\T\\D tray. Performed by Du jonas MD Patient tolerated well. 14:15 Patient did not have IV access during this emergency room visit. db 14:24 Dressings: non-adherent dressing x 1 pelvis. zm 14:57 Maria Elena Sierra, RN is Primary Nurse. db 15:01 Patient has correct armband on for positive identification. Bed in low position. Call db light in reach. Side rails up X 1. Provided Education on: DISHCARGE. Pulse ox on. NIBP on. Warm blanket given. Administered Medications: 14:00 Drug: Lidocaine-Epinephrine Infiltration -2 % (1:100,000) 10 ml Infiltration once; to db bedside {Note: USED BY DR. RAMOS.} Route: Infiltration; 14:58 Follow up: Response: No adverse reaction db Medication: 15:02 VIS not applicable for this client. db Outcome: 14:15 Discharged to home ambulatory, db 14:15 Condition: stable 14:15 Discharge instructions given to patient, Instructed on discharge instructions, follow up and referral plans. Prescriptions given X 1, 14:23 Discharge ordered by . rn 15:03 Patient left the ED. db Signatures: Myrtle Nogueira, Reg Du Tee MD MD rn Martinez, Maria Elena Lemons RN RN db Martinez, Clarissa, RN RN cm10
--- NOTE | 2023-06-25 14:24 | EDPHYS ---
Physician Documentation [facility] Name: Luis Guerra Age: 32 yrs Sex: Male : 1990 Arrival Date: 06/25/2023 Time: 13:38 Bed 16 Private MD: ED Physician Du Gonzales HPI: 06/25 13:47 This 32 yrs old Male presents to ER via Ambulatory with complaints of Abscess. rn 13:47 the patient presents with a swollen area of the pelvis. Onset: The symptoms/episode rn began/occurred 3 day(s) ago. Possible cause(s): unknown. Associated signs and symptoms: Pertinent positives: erythema, swelling, Pertinent negatives: discharge, drainage, fever. Severity of symptoms: At their worst the symptoms were moderate, in the emergency department the symptoms are unchanged. The patient has experienced similar episodes in the past. Patient reports history of boils, recently noticed an area of swelling just underneath the belt. States thinks started as an ingrown hair but also works outside a lot and friction from his belt may have worsened it. No fever. No drainage.. Historical: - Allergies: 13:47 Iodine (Anaphylaxis); cm10 - PMHx: 13:47 None; cm10 - PSHx: 13:47 Esophagus; cm10 - Immunization history:: Adult Immunizations unknown. - Social history:: Smoking status: Patient reports the use of cigarette tobacco products, smokes one pack cigarettes per day. - Family history:: not pertinent. - Hospitalizations: : No recent hospitalization is reported. ROS: 13:47 Constitutional: Negative for fever, chills, and weight loss, Skin: Positive for area of rn swelling along waistline Exam: 13:47 Constitutional: This is a well developed, well nourished patient who is awake, alert, rn and in no acute distress. Abdomen/GI: Soft, nontender Skin: Warm, dry, few inches below umbilicus there is an area of erythema, induration, measures approximately 2 inches total. No necrosis or open wound. Vital Signs: 13:44 BP 155 / 77; Pulse 79; Resp 18 S; Temp 98.2(TE); Pulse Ox 100% on R/A; Weight 85.73 kg cm10 (R); Height 5 ft. 6 in. ; Pain 8/10; 13:54 BP 136 / 68; Pulse 77; Resp 16; Pulse Ox 99% on R/A; db 14:30 BP 127 / 69; Pulse 84; Resp 16; Pulse Ox 95% on R/A; db 13:44 Body Mass Index 30.51 (85.73 kg, 167.64 cm) cm10 13:44 Pain Scale: Adult cm10 Procedures: 14:21 I \T\ D: Incision and drainage was performed for an abscess of the pelvis Prepped with rn Chlorhexidine prep. Anesthetized with 3 ml's 1% Lidocaine w/ Epi. Incised with #11 blade. Drained small amount purulent fluid. serosanguinous fluid. Packed with iodoform gauze, Dressing: sterile 4x4 gauze, non-Adherent dressing, the patient tolerated the procedure well. MDM: 13:42 Patient medically screened. rn 14:21 Differential diagnosis: abscess, cellulitis. Data reviewed: vital signs, nurses notes, rn and as a result, I will discharge patient. Counseling: I had a detailed discussion with the patient and/or guardian regarding the historical points, exam findings, and any diagnostic results supporting the discharge/admit diagnosis, the need for outpatient follow up, to return to the emergency department if symptoms worsen or persist or if there are any questions or concerns that arise at home. Response to treatment: the patient's symptoms have markedly improved after treatment, and as a result, I will discharge patient. Special discussion: I discussed with the patient/guardian in detail that at this point there is no indication for admission to the hospital. It is understood, however, that if the symptoms persist or worsen the patient needs to return immediately for re-evaluation. Administered Medications: 14:00 Drug: Lidocaine-Epinephrine Infiltration -2 % (1:100,000) 10 ml Infiltration once; to db bedside {Note: USED BY DR. GONZALES.} Route: Infiltration; 14:58 Follow up: Response: No adverse reaction db Disposition Summary: 06/25/23 14:23 Discharge Ordered Notes: Location: Home rn Problem: new rn Symptoms: have improved rn Condition: Stable rn Diagnosis - Cutaneous abscess of groin rn Followup: rn - With: Private Physician - When: As needed - Reason: Recheck today's complaints, Re-evaluation by your physician Discharge Instructions: - Discharge Summary Sheet rn - Skin Abscess rn - Incision and Drainage rn Forms: - Medication Reconciliation Form rn - Thank You Letter rn - Antibiotic infusion rn - Prescription Opioid Use rn - Patient Portal Instructions rn - Leadership Thank You Letter rn Prescriptions: - Bactrim DS 800-160 mg Oral Tablet - take 1 tablet ORAL route every 12 hours for 10 days; 20 tablet; Refills: 0, rn Product Selection Permitted Signatures: Du Gonzales MD MD rn Benton, Danielle, RN RN db Va Lane RN RN cm10
[2023-06-25 15:16] VITALS: TEMP 98.2
[2023-06-25 15:18] VITALS: BP 127/69; O2SAT 95
== END 2023-06-25 15:03 | disposition home or self-care (01) ==
LOC: ER 13:38
PROC: 0J9C0ZZ Drainage of Pelvic Region Subcutaneous Tissue and Fascia, Open Approach (ICD-10-PCS; principal; 2023-06-25)
DX: L02.214 Cutaneous abscess of groin (principal); F17.210 Nicotine dependence, cigarettes, uncomplicated; Z91.09 Other allergy status, other than to drugs and biological substances
CPT/HCPCS: 99284

== ENCOUNTER 2023-12-13 14:41 | Emergency (ER) | payer SELFPAY ==
[2023-12-13] MEDS ORDERED: IBUPROFEN 400 MG TAB ONE (15:12)
[2023-12-13] MEDS ORDERED: ACETAMINOPHEN 500 MG TAB ONE (15:12)
[2023-12-13] MEDS ORDERED: IBUPROFEN 200 MG TAB PO ONE (15:12)
[2023-12-13] MEDS ORDERED: ONDANSETRON 4 MG (ODT) TAB ONE (15:13)
[2023-12-13 15:41] LABS: SARS-CoV-2 Antigen CONTROL BLUE LINE VIS/BG OK; SARS-CoV-2 Antigen Rapid Res Negative (Negative)
--- NOTE | 2023-12-13 15:49 | EDPHYS ---
Physician Documentation [facility] Name: Luis Guerra Age: 33 yrs Sex: Male : 1990 Arrival Date: 12/13/2023 Time: 14:41 Bed 15 Private MD: ED Physician Nura Santiago HPI: 12/12 15:01 This 33 yrs old Male presents to ER via Unassigned with complaints of Fever, Headache, ms3 Vomiting, Pain All Over, Dizziness. 15:01 As you [id number] male with no past medical history presents to the emergency ms3 department for headache, body aches, vomiting that began this morning on waking up. Patient states discomfort is a 10/10. Patient denies any alleviating or inciting factors. Patient endorses fever. Patient states he took ibuprofen at 5 AM and Tylenol at 8 AM. Historical: - Allergies: 15:00 Iodine (Anaphylaxis); aa5 - PMHx: 15:00 None; aa5 - PSHx: 15:00 Esophagus; aa5 - Immunization history:: Adult Immunizations unknown. - Infectious Disease History:: Denies. - Social history:: Smoking status: Patient reports the use of cigarette tobacco products. ROS: 15:01 Skin: Negative for injury, rash, and discoloration, ms3 15:01 Constitutional: Positive for body aches, chills, fever, 15:01 Abdomen/GI: Positive for nausea and vomiting, 15:01 MS/extremity: Exam: 15:01 Constitutional: This is a well developed, well nourished patient who is awake, alert, ms3 and in no acute distress. Head/Face: Normocephalic, atraumatic. Neck: Trachea midline, no cervical lymphadenopathy. Supple, full range of motion without nuchal rigidity, or vertebral point tenderness. No Meningismus. Chest/axilla: Normal chest wall appearance and motion. Nontender with no deformity. Cardiovascular: Regular rate and rhythm with a normal S1 and S2. No gallops, murmurs, or rubs. Normal PMI, no JVD. No pulse deficits. Respiratory: Lungs have equal breath sounds bilaterally, clear to auscultation and percussion. No rales, rhonchi or wheezes noted. No increased work of breathing, no retractions or nasal flaring. Abdomen/GI: Soft, non-tender, with normal bowel sounds. No distension or tympany. No guarding or rebound. No evidence of tenderness throughout. Skin: Warm, dry with normal turgor. Normal color with no rashes, no lesions, and no evidence of cellulitis. MS/ Extremity: Pulses equal, no cyanosis. Neurovascular intact. Full, normal range of motion. Vital Signs: 15:00 BP 126 / 74; Pulse 92; Resp 18 S; Temp 98.3(TE); Pulse Ox 99% on R/A; Weight 87.09 kg aa5 (R); Height 5 ft. 8 in. (R); 15:50 BP 120 / 79; Pulse 80; Resp 18; Pulse Ox 99% on R/A; rs5 15:00 Body Mass Index 29.19 (87.09 kg, 172.72 cm) aa5 MDM: 15:00 Patient medically screened. ms3 15:01 Differential diagnosis: Flu versus COVID versus viral illness. ms3 20:26 Data reviewed: vital signs, nurses notes, lab test result(s), and as a result, I will ms3 discharge patient. I considered the following discharge prescriptions or medication management in the emergency department Medications were administered in the Emergency Department. See MAR. Counseling: I had a detailed discussion with the patient and/or guardian regarding the historical points, exam findings, and any diagnostic results supporting the discharge/admit diagnosis, lab results, the need for outpatient follow up, to return to the emergency department if symptoms worsen or persist or if there are any questions or concerns that arise at home. Special discussion: I discussed with the patient/guardian in detail that at this point there is no indication for admission to the hospital. It is understood, however, that if the symptoms persist or worsen the patient needs to return immediately for re-evaluation. ED course: Discussed negative flu and covid with patient. Patient to follow up with pmd in 2-3 days. Patient understands/ agrees with plan. All questions answered. Return precautions discussed to include worsening symptoms, or any other concerns. On re-evaluation patient is a/o x4, in nad, non-toxic appearing, ambulatory in the ED.. 12/12 15:00 Order name: Flu; Complete Time: 15:45 ms3 12/12 15:00 Order name: SARS RAPID; Complete Time: 15:45 ms3 Administered Medications: 15:17 Drug: Acetaminophen PO 1000 mg PO once Route: PO; as6 16:00 Follow up: Response: No adverse reaction rs5 15:17 Drug: Ibuprofen PO 600 mg PO once Route: PO; as6 16:00 Follow up: Response: No adverse reaction rs5 15:17 Drug: Ondansetron PO 4 mg PO once Route: PO; as6 16:00 Follow up: Response: No adverse reaction rs5 Disposition: 20:31 Chart complete. ms3 Disposition Summary: 12/13/23 15:49 Discharge Ordered Notes: Location: Home ms3 Condition: Stable ms3 Diagnosis - Vomiting ms3 - Myalgia ms3 - Fever, unspecified ms3 Followup: ms3 - With: Wesley Ulloa DO - When: 2 - 3 days - Reason: Recheck today's complaints Discharge Instructions: - Discharge Summary Sheet ms3 - Vomiting, Adult ms3 Forms: - Medication Reconciliation Form ms3 - Antibiotic Education ms3 - Prescription Opioid Use ms3 - Patient Portal Instructions ms3 - Leadership Thank You Letter ms3 - Work release form rs5 Prescriptions: - ondansetron HCl 4 mg Oral tablet - take 1 tablet ORAL route every 8 hours; 10 tablet; Refills: 0, Product ms3 Selection Permitted Signatures: Dispatcher [employer] Maya Hidalgo, RN RN aa5 Nura Santiago, DO ms3 Tavo Ricks RN RN as6 Rob Simpson RN rs5
--- NOTE | 2023-12-13 15:49 | ER ---
Nurse's Notes [facility] Name: Luis Guerra Age: 33 yrs Sex: Male : 1990 Arrival Date: 12/13/2023 Time: 14:41 Bed 15 Private MD: Diagnosis: Vomiting;Myalgia;Fever, unspecified Presentation: 12/12 15:00 Chief complaint: Patient states: headache, body aches, nausea/vomiting, and dizziness aa5 since this morning. Coronavirus screen: headache, muscle pain. Ebola Screen: Patient denies travel to an Ebola-affected area in the 21 days before illness onset. Initial Sepsis Screen: Does the patient meet any 2 criteria? No. Patient's initial sepsis screen is negative. Does the patient have a suspected source of infection? No. Patient's initial sepsis screen is negative. Risk Assessment: Do you want to hurt yourself or someone else? Patient reports no desire to harm self or others. Onset of symptoms was November 2023. 15:00 Acuity: REINA 3 aa5 15:00 Method Of Arrival: Ambulatory aa5 Triage Assessment: 15:01 Headache History: The patient has had previous headaches and this one is similar to rs5 previous episodes. General: Appears. General: Appears in no apparent distress. uncomfortable, Behavior is calm, cooperative. Pain: Complains of pain in head and generalized body aches Pain currently is 3 out of 10 on a pain scale. Pain began Also complains of no other associated symptoms. Historical: - Allergies: 15:00 Iodine (Anaphylaxis); aa5 - PMHx: 15:00 None; aa5 - PSHx: 15:00 Esophagus; aa5 - Immunization history:: Adult Immunizations unknown. - Infectious Disease History:: Denies. - Social history:: Smoking status: Patient reports the use of cigarette tobacco products. Screenin:02 [facility] ED Fall Risk Assessment (Adult) History of falling in the last 3 months, rs5 including since admission No falls in past 3 months (0 pts) Confusion or Disorientation No (0 pts) Intoxicated or Sedated No (0 pts) Impaired Gait No (0 pts) Mobility Assist Device Used No (0 pt) Altered Elimination No (0 pt) Score/Fall Risk Level 0 - 2 = Low Risk Oriented to surroundings, Maintained a safe environment. Abuse screen: Denies threats or abuse. Nutritional screening: No deficits noted. Tuberculosis screening: No symptoms or risk factors identified. Assessment: 15:01 General: Appears in no apparent distress. uncomfortable, Behavior is calm, cooperative. rs5 Pain: Complains of pain in head and generalized body aches Pain currently is 5 out of 10 on a pain scale. Quality of pain is described as aching, Is continuous. Neuro: Level of Consciousness is awake, alert, obeys commands, Oriented to person, place, time, situation. Cardiovascular: Patient's skin is warm and dry. Rhythm is regular. Respiratory: Airway is patent Respiratory effort is even, unlabored, Respiratory pattern is regular, symmetrical. GI: Abdomen is round non-distended, Abd is soft and non tender. GI: Pt states "I'm a little nausease but I'm okay, I don't want anything right now". : No signs and/or symptoms were reported regarding the genitourinary system. EENT: No deficits noted. Derm: Skin is intact, Skin is pink, warm \\T\\ dry. Musculoskeletal: Range of motion: intact in all extremities. 15:59 Reassessment: Patient and/or family updated on plan of care and expected duration. Pain rs5 level reassessed. Patient is alert, oriented x 3, equal unlabored respirations, skin warm/dry/pink. Patient states feeling better. Vital Signs: 15:00 BP 126 / 74; Pulse 92; Resp 18 S; Temp 98.3(TE); Pulse Ox 99% on R/A; Weight 87.09 kg aa5 (R); Height 5 ft. 8 in. (R); 15:50 BP 120 / 79; Pulse 80; Resp 18; Pulse Ox 99% on R/A; rs5 15:00 Body Mass Index 29.19 (87.09 kg, 172.72 cm) aa5 ED Course: 14:42 Patient arrived in ED. im 14:46 Nura Santiago DO is Attending Physician. ms3 15:00 Arm band placed on. aa5 15:01 Triage completed. aa5 15:02 Patient has correct armband on for positive identification. Bed in low position. Call rs5 light in reach. Side rails up X2. 15:02 No provider procedures requiring assistance completed. rs5 15:11 Flu Sent. as6 15:11 SARS RAPID Sent. as6 15:48 Wesley Ulloa DO is Referral Physician. ms3 15:50 Rob Simpson, RN is Primary Nurse. rs5 16:05 IV discontinued, intact, bleeding controlled, No redness/swelling at site. Pressure rs5 dressing applied. Administered Medications: 15:17 Drug: Acetaminophen PO 1000 mg PO once Route: PO; as6 16:00 Follow up: Response: No adverse reaction rs5 15:17 Drug: Ibuprofen PO 600 mg PO once Route: PO; as6 16:00 Follow up: Response: No adverse reaction rs5 15:17 Drug: Ondansetron PO 4 mg PO once Route: PO; as6 16:00 Follow up: Response: No adverse reaction rs5 Medication: 16:10 VIS not applicable for this client. rs5 Outcome: 15:49 Discharge ordered by . ms3 16:05 Discharged to home ambulatory, rs5 16:05 Condition: stable 16:05 Discharge instructions given to patient, family, Instructed on discharge instructions, follow up and referral plans. medication usage, Demonstrated understanding of instructions, follow-up care, medications, Prescriptions given X 1, 16:10 Patient left the ED. rs5 Signatures: Maya Vargas RN RN aa5 Nura Santiago DO DO ms3 Tavo Ricks RN RN as6 Rob Simpson, RN RN rs5 Sandee Green Corrections: (The following items were deleted from the chart) 16:14 15:01 Pain: Complains of pain in head Pain currently is 3 out of 10 on a pain scale. rs5 Quality of pain is described as aching, Is continuous, rs5
[2023-12-13 16:18] VITALS: BP 126/74; TEMP 98.3; O2SAT 99
== END 2023-12-13 16:10 | disposition home or self-care (01) ==
LOC: ER 14:41
DX: R11.10 Vomiting, unspecified (principal); M79.10 Myalgia, unspecified site; R50.9 Fever, unspecified; Z11.52 Encounter for screening for COVID-19
CPT/HCPCS: 36415; 87804; 87811; 99284; Q0162

== ENCOUNTER 2024-06-06 09:35 | Emergency (ER) | payer SELFPAY ==
--- NOTE | 2024-06-06 11:01 | RAD REPORT ---
Procedure: Chest Single View HISTORY: Cough COMPARISON: 2014 FINDINGS: The lungs appear clear of acute infiltrate. No significant pleural effusion noted. The heart is normal size. IMPRESSION: No acute abnormality is displayed.
--- NOTE | 2024-06-06 12:08 | ER ---
Nurse's Notes [facility] Name: Luis Guerra Age: 33 yrs Sex: Male : 1990 Arrival Date: 06/06/2024 Time: 09:35 Bed 12 Private MD: Diagnosis: Viral infection, unspecified Presentation: 06/06 10:20 Chief complaint: Patient states: congestion, cough, started Wednesday , chest tightness iw when he cough, his home COVID test was negative. Coronavirus screen: Client presents with at least one sign or symptom that may indicate coronavirus-19. Ebola Screen: No symptoms or risks identified at this time. Initial Sepsis Screen: Does the patient meet any 2 criteria? No. Patient's initial sepsis screen is negative. Does the patient have a suspected source of infection? No. Patient's initial sepsis screen is negative. Risk Assessment: Do you want to hurt yourself or someone else? Patient reports no desire to harm self or others. Onset of symptoms was June 04, 2024. 10:20 Method Of Arrival: Ambulatory iw 10:20 Acuity: REINA 4 iw Triage Assessment: 10:30 General: Appears in no apparent distress. Behavior is calm, cooperative. Pain:. iw Historical: - Allergies: 10:21 Iodine (Anaphylaxis); iw - Home Meds: 10:21 None [Active]; iw - PMHx: 10:21 None; iw - PSHx: 10:21 Esophagus; iw - Immunization history:: Adult Immunizations up to date. - Infectious Disease History:: Denies. - Social history:: Smoking status: Patient reports the use of cigarette tobacco products. Screenin:15 [facility] ED Fall Risk Assessment (Adult) History of falling in the last 3 months, iw including since admission. [facility] ED Fall Risk Assessment (Adult) Score/Fall Risk Level 0 - 2 = Low Risk Oriented to surroundings, Maintained a safe environment. Abuse screen: Denies threats or abuse. Denies injuries from another. Nutritional screening: No deficits noted. Tuberculosis screening: No symptoms or risk factors identified. 12:41 [facility] ED Fall Risk Assessment (Adult) Confusion or Disorientation No (0 pts) iw Intoxicated or Sedated No (0 pts) Impaired Gait No (0 pts) Mobility Assist Device Used No (0 pt) Altered Elimination No (0 pt). Assessment: 10:30 General: Appears in no apparent distress. Behavior is calm, cooperative. Pain: iw Complains of pain in chest. Neuro: Level of Consciousness is awake, alert, obeys commands, Oriented to person, place, time, situation, Moves all extremities. Cardiovascular: Patient's skin is warm and dry. Respiratory: Reports cough that is non-productive, Respiratory effort is even, unlabored, Respiratory pattern is regular, symmetrical. GI: Abdomen is non-distended. Derm: Skin is intact, is healthy with good turgor. Musculoskeletal: Range of motion: intact in all extremities. 12:40 Reassessment: Patient appears in no apparent distress at this time. Patient and/or iw family updated on plan of care and expected duration. Pain level reassessed. Patient is alert, oriented x 3, equal unlabored respirations, skin warm/dry/pink. Patient states feeling better. Patient states symptoms have improved. Vital Signs: 10:22 Pulse 77; Resp 18; Temp 97.9; Pulse Ox 99% ; Weight 87.09 kg; Height 5 ft. 7 in. ; iw 10:22 Body Mass Index 30.07 (87.09 kg, 170.18 cm) iw ED Course: 09:39 Patient arrived in ED. im 10:10 Alli Baxter MD is Attending Physician. ec2 10:21 Triage completed. iw 10:30 Arm band placed on. iw 10:36 CXR XRAY In Process Unspecified. EDMS 12:07 Mira Jaramillo, RN is Primary Nurse. iw 12:40 No provider procedures requiring assistance completed. Patient did not have IV access iw during this emergency room visit. 12:40 Patient has correct armband on for positive identification. iw Administered Medications: 12:37 Drug: Ketorolac IM 30 mg IM once Route: IM; Site: right deltoid; iw 12:40 Follow up: Response: Medication Administered at Departure; Medication administered at iw discharge. 12:37 Drug: Tessalon Perle PO 200 mg PO once Route: PO; iw 12:40 Follow up: Response: Medication administered at discharge. iw Medication: 12:39 VIS not applicable for this client. iw Outcome: 12:07 Discharge ordered by MD. ec2 12:40 Discharged to home ambulatory, iw 12:40 Condition: good 12:40 Discharge instructions given to patient, Instructed on discharge instructions, follow up and referral plans. medication usage, Demonstrated understanding of instructions, follow-up care, medications, Prescriptions given X 2, 12:44 Patient left the ED. ar6 Signatures: Dispatcher [employer] Mira Donohue, Sandee Jurado RN, Edwin, MD MD ec2 Myriam Ocampo RN RN ar6
--- NOTE | 2024-06-06 12:08 | EDPHYS ---
Physician Documentation [facility] Name: Luis Guerra Age: 33 yrs Sex: Male : 1990 Arrival Date: 06/06/2024 Time: 09:35 Bed 12 Private MD: ED Physician Alli Baxter HPI: 06/06 11:29 This 33 yrs old Male presents to ER via Ambulatory with complaints of Flu ec2 Symptoms, Painful Cough. 11:29 Patient arrives today for cough and cold symptoms. Patient reports persistent cough and ec2 subsequently is having some pain with the cough. Patient reports some congestion subjective fevers and chills. 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 Historical: - Allergies: 10:21 Iodine (Anaphylaxis); iw - Home Meds: 10:21 None [Active]; iw - PMHx: 10:21 None; iw - PSHx: 10:21 Esophagus; iw - Immunization history:: Adult Immunizations up to date. - Infectious Disease History:: Denies. - Social history:: Smoking status: Patient reports the use of cigarette tobacco products. ROS: 11:29 Constitutional: as per hpi ec2 Exam: 11:29 Constitutional: GEN: NAD Head: atraumatic Eyes: EOMI Ears: External ears are ec2 normal. CV: regular rate LUNGS: no respiratory distress, no wheezes, no rales, no rhonchi ABD: non-distended SKIN: no evidence of rashes MSK: no evidence of trauma Vital Signs: 10:22 Pulse 77; Resp 18; Temp 97.9; Pulse Ox 99% ; Weight 87.09 kg; Height 5 ft. 7 in. ; iw 10:22 Body Mass Index 30.07 (87.09 kg, 170.18 cm) iw MDM: 10:10 Medical Screening Exam initiated ec2 11:29 Data reviewed: vital signs. ED course: Patient arrives today for evaluation of URI ec2 signs and symptoms. Examination remarkable for well-appearing nontoxic individuals otherwise hemodynamically stable in no acute distress. Will obtain viral swab as above, chest x-ray as well. Differential diagnosis includes viral infection, pneumonia. Doubt with systemic illness given reassuring hemodynamics.. 11:30 ED course: Chest x-ray independently reviewed and interpreted by me, shows no acute ec2 intrathoracic process.. 06/06 10:10 Order name: CXR XRAY; Complete Time: 11:29 ec2 Administered Medications: 12:37 Drug: Ketorolac IM 30 mg IM once Route: IM; Site: right deltoid; iw 12:40 Follow up: Response: Medication Administered at Departure; Medication administered at iw discharge. 12:37 Drug: Tessalon Perle PO 200 mg PO once Route: PO; iw 12:40 Follow up: Response: Medication administered at discharge. iw Disposition Summary: 06/06/24 12:07 Discharge Ordered Notes: Location: Home ec2 Condition: Stable ec2 Diagnosis - Viral infection, unspecified ec2 Followup: ec2 - With: Private Physician - When: - Reason: Re-evaluation by your physician Discharge Instructions: - Discharge Summary Sheet ec2 - Viral Illness, Adult ec2 Forms: - Work release form ec2 - Medication Reconciliation Form ec2 - Antibiotic Education ec2 - Prescription Opioid Use ec2 - Patient Portal Instructions ec2 - Leadership Thank You Letter ec2 Prescriptions: - albuterol sulfate 90 mcg/actuation Inhalation HFA Aerosol Inhaler - inhale 2 inhalation INHALATION route every 4 hours as needed for shortness of ec2 breath or wheezing; 1 unit; Refills: 0, Product Selection Permitted - Tessalon Perles 100 mg Oral Capsule - take 1 capsule ORAL route every 8 hours As needed; 15 capsule; Refills: 0, ec2 Product Selection Permitted Signatures: Dispatcher [employer] Mira Donohue RN RN iw Corral, Edwin, MD MD ec2
[2024-06-06] MEDS ORDERED: KETOROLAC 30 MG/ML INJ ONE (12:28)
[2024-06-06] MEDS ORDERED: BENZONATATE 100 MG CAP PO ONE (12:28)
[2024-06-06 14:16] VITALS: TEMP 97.9; O2SAT 99
== END 2024-06-06 12:44 | disposition home or self-care (01) ==
LOC: ER 09:35
DX: B34.9 Viral infection, unspecified (principal); Z11.52 Encounter for screening for COVID-19; Z72.0 Tobacco use
CPT/HCPCS: 71045; 96372; 99284

== ENCOUNTER 2024-07-31 07:37 | Emergency (ER) | payer SELFPAY ==
[2024-07-31] MEDS ORDERED: NA CHLORIDE 0.9% 1,000 ML ONE (08:15)
[2024-07-31] MEDS ORDERED: KETOROLAC 30 MG/ML INJ ONE (08:15)
--- NOTE | 2024-07-31 08:39 | RAD REPORT ---
EXAMINATION: CT ABDOMEN AND PELVIS WITHOUT CONTRAST CLINICAL INDICATION: Abdominal pain TECHNIQUE: CT abdomen and pelvis was performed, as per department protocol. IV contrast and oral was not administered.Axial, sagittal and coronal reconstructions were obtained. One or more of the following dose reduction techniques were used: Automated exposure control, adjustment of the mA and/o r kV according to the patient size, and/or iterative reconstruction. Unless otherwise specified, incidental findings do not require dedicated imaging follow-up. [id number]. COMPARISON: 2020 FINDINGS: The lack of intravenous and oral contrast limits evaluation of solid organs, vessels and bowel. The liver, spleen, pancreas, and adrenals appear grossly normal. 3 mm calculus right kidney. No hydronephrosis. 1 mm calculus left kidney. No hydronephrosis. A ureter al calculus not seen. Bladder calculus not noted. No evidence of diverticulitis Normal appendix Small umbilical hernia. Ventral hernia mid abdomen contains fat. Abdominal wall defect 2 cm. IMPRESSION: Nonobstructing bilateral renal calculi
[2024-07-31 08:40] LABS: Absolute Basophils 0.1 K/uL (0-0.5); Absolute Eosinophils 0.2 K/uL (0-0.5); Absolute Lymphocytes (CBC) 2.7 K/uL (0.7-4.9); Absolute Monocytes 0.7 K/uL (0.1-1.3); Absolute Neutrophil 6.4 K/uL (1.8-8.0); Basophils % 0.7 % (0-1.3); Eosinophils % 1.8 % (0-4.4); Hematocrit 47.7 % (39.6-49.0); Hemoglobin 15.9 g/dL (13.6-17.9); MCH 31.1 pg (27.0-35.0); MCHC 33.3 g/dL (32.0-36.0); MCV 93.3 fL (80-100); MPV 7.4 fL (7.6-11.3); Neutrophils % 63.5 % (41.7-73.7); Platelets 319 thou/uL (152-406); RBC Red Blood Cell Count 5.11 M/uL (4.33-5.43); Red Cell Distribution Width 13.4 % (12.1-15.2)
[2024-07-31 08:49] LABS: Specific Gravity 1.029 (1.005-1.030); Sqamous Epithelial None Seen /HPF (None Seen); Urine Bacteria None Seen /HPF (<20); Urine Bilirubin NEGATIVE (Negative); Urine Blood Negative (Negative); Urine Clarity Clear (Clear); Urine Color Yellow (Yellow); Urine Culture Reflex Order NOT NEEDED; Urine Glucose NEGATIVE (Negative); Urine Ketones NEGATIVE (Negative); Urine Microscopic Reflex YN ORDER UMIC; Urine Mucus Slight /HPF (None Seen); Urine Nitrite NEGATIVE (Negative); Urine Protein NEGATIVE (Negative); Urine RBC <5 /HPF (None Seen); Urine Urobilinogen Normal (Normal); Urine WBC <5 /HPF (<5); Urine pH 5.5 (5.0-7.0)
--- NOTE | 2024-07-31 08:55 | ER ---
Nurse's Notes [facility] Name: Luis Guerra Age: 34 yrs Sex: Male : 1990 Arrival Date: 07/31/2024 Time: 07:37 Bed 5 Private MD: Diagnosis: Low back pain Presentation: 07/31 07:52 Chief complaint: Patient states: L mid back pain that began last night, worse this ss morning. Denies injury. Coronavirus screen: Client denies travel out of the [place] in the last 14 days. Ebola Screen: Patient denies exposure to infectious person. Patient denies travel to an Ebola-affected area in the 21 days before illness onset. Initial Sepsis Screen: Does the patient meet any 2 criteria? No. Patient's initial sepsis screen is negative. Does the patient have a suspected source of infection? No. Patient's initial sepsis screen is negative. Risk Assessment: Do you want to hurt yourself or someone else? Patient reports no desire to harm self or others. 07:52 Method Of Arrival: Ambulatory ss 07:52 Acuity: REINA 4 ss Triage Assessment: 07:55 General: Appears in no apparent distress. Behavior is appropriate for age. Pain: bp Complains of pain in back. EENT: No deficits noted. Neuro: Level of Consciousness is awake, alert, obeys commands, Oriented to Appropriate for age. Cardiovascular: No deficits noted. Respiratory: No deficits noted. GI: No signs and/or symptoms were reported involving the gastrointestinal system. : No signs and/or symptoms were reported regarding the genitourinary system. Derm: No deficits noted. Musculoskeletal: No deficits noted. Circulation, motion, and sensation intact. Range of motion: intact in all extremities. Historical: - Allergies: 07:53 Iodine (Anaphylaxis); ss - Home Meds: 07:53 None [Active]; ss - PMHx: 07:53 None; ss - PSHx: 07:53 Esophagus; ss - Immunization history:: Client reports having NOT received the Covid vaccine. - Infectious Disease History:: Denies. - Social history:: Smoking status: Patient reports the use of cigarette tobacco products, smokes one-half pack cigarettes per day. Screenin:56 [facility] ED Fall Risk Assessment (Adult) History of falling in the last 3 months, bp including since admission No falls in past 3 months (0 pts) Confusion or Disorientation No (0 pts) Intoxicated or Sedated No (0 pts) Impaired Gait No (0 pts) Mobility Assist Device Used No (0 pt) Altered Elimination No (0 pt) Score/Fall Risk Level 0 - 2 = Low Risk Oriented to surroundings. Abuse screen: Denies threats or abuse. Denies injuries from another. Nutritional screening: No deficits noted. Nutritional screening: No deficits noted. Tuberculosis screening: No symptoms or risk factors identified. Assessment: 07:56 General: SEE TRIAGE NOTE. Neuro: Level of Consciousness is awake, alert, obeys bp commands, Oriented to Appropriate for age Gait is steady. Vital Signs: 07:52 BP 125 / 75; Pulse 87; Resp 16; Temp 97.2(TE); Pulse Ox 100% on R/A; Weight 93.89 kg; ss Height 5 ft. 6 in. ; Pain 7/10; 09:15 BP 131 / 69; Pulse 75; Resp 16; Pulse Ox 99% ; bp 07:52 Body Mass Index 33.41 (93.89 kg, 167.64 cm) ss 07:52 Pain Scale: Adult ss ED Course: 07:41 Patient arrived in ED. im 07:50 Hue Bertrand MD is Attending Physician. gb1 07:53 Triage completed. ss 07:53 Arm band placed on right wrist. ss 07:55 Eduard Del Cid, JOSE C is Primary Nurse. bp 07:56 Patient has correct armband on for positive identification. bp 08:25 CT Abd/Pelvis - Without Contrast In Process Unspecified. EDMS 08:36 Initial lab(s) drawn, by wa, sent to lab. Urine collected: clean catch specimen, clear. bp Inserted saline lock: 20 gauge in right antecubital area, using aseptic technique. Blood collected. Flushed with 10 mL NS. 09:14 No provider procedures requiring assistance completed. IV discontinued, intact, bp bleeding controlled, No redness/swelling at site. Pressure dressing applied. 09:15 Provided Education on: n/a. bp Administered Medications: 08:36 Drug: NS 0.9% IV 1000 ml IV at 1 bolus Per protocol; to be given as a bolus over 60 bp minutes Route: IV; Rate: 1 bolus; Site: right antecubital; 09:02 Follow up: IV Status: Completed infusion bp 08:36 Drug: Ketorolac IVP 30 mg IVP once Route: IVP; Site: right antecubital; bp 09:01 Follow up: Response: No adverse reaction bp Medication: 07:56 VIS not applicable for this client. bp Outcome: 08:55 Discharge ordered by gb1 09:15 Discharged to home ambulatory, bp 09:15 Condition: stable 09:15 Discharge instructions given to patient, Instructed on discharge instructions, follow up and referral plans. medication usage, Demonstrated understanding of instructions, follow-up care, medications, Prescriptions given X 1, 09:16 Patient left the ED. bp Signatures: Dispatcher [employer] EDMS Brianna Gonzalez RN RN ss Eduard Del Cid RN RN bp Sandee Green Gina, MD MD gb1
--- NOTE | 2024-07-31 08:55 | EDPHYS ---
Physician Documentation [facility] Name: Luis Guerra Age: 34 yrs Sex: Male : 1990 Arrival Date: 07/31/2024 Time: 07:37 Bed 5 Private MD: ED Physician Hue Bertrand HPI: 07/31 08:56 This 34 yrs old Male presents to ER via Ambulatory with complaints of Back gb1 Pain. 08:56 34-year-old male with right flank pain since last night. Patient states he gb1 laid down to go to sleep and when he woke up this morning pain in the right flank was worse. He denies any fever or chills or any dysuria and no hematuria reported. He has a history of a kidney stone in the past otherwise he has no past medical history.. Historical: - Allergies: 07:53 Iodine (Anaphylaxis); ss - Home Meds: 07:53 None [Active]; ss - PMHx: 07:53 None; ss - PSHx: 07:53 Esophagus; ss - Immunization history:: Client reports having NOT received the Covid vaccine. - Infectious Disease History:: Denies. - Social history:: Smoking status: Patient reports the use of cigarette tobacco products, smokes one-half pack cigarettes per day. Exam: 08:56 Constitutional: This is a well developed, well nourished patient who is awake, alert, gb1 and in no acute distress. Head/Face: Normocephalic, atraumatic. Eyes: Pupils equal round and reactive to light, extra-ocular motions intact. Lids and lashes normal. Conjunctiva and sclera are non-icteric and not injected. Cornea within normal limits. Periorbital areas with no swelling, redness, or edema. ENT: Nares patent. No nasal discharge, no septal abnormalities noted. Tympanic membranes are normal and external auditory canals are clear. Oropharynx with no redness, swelling, or masses, exudates, or evidence of obstruction, uvula midline. Mucous membranes moist. Neck: Trachea midline, no thyromegaly or masses palpated, and no cervical lymphadenopathy. Supple, full range of motion without nuchal rigidity, or vertebral point tenderness. No Meningismus. Chest/axilla: Normal chest wall appearance and motion. Nontender with no deformity. No lesions are appreciated. Cardiovascular: Regular rate and rhythm with a normal S1 and S2. No gallops, murmurs, or rubs. Normal PMI, no JVD. No pulse deficits. Respiratory: Lungs have equal breath sounds bilaterally, clear to auscultation and percussion. No rales, rhonchi or wheezes noted. No increased work of breathing, no retractions or nasal flaring. Abdomen/GI: Soft, non-tender, with normal bowel sounds. No distension or tympany. No guarding or rebound. No evidence of tenderness throughout. Back: No spinal tenderness.+right lower paraspinal costovertebral tenderness. Full range of motion. Skin: Warm, dry with normal turgor. Normal color with no rashes, no lesions, and no evidence of cellulitis. MS/ Extremity: Pulses equal, no cyanosis. Neurovascular intact. Full, normal range of motion. Vital Signs: 07:52 BP 125 / 75; Pulse 87; Resp 16; Temp 97.2(TE); Pulse Ox 100% on R/A; Weight 93.89 kg; ss Height 5 ft. 6 in. ; Pain 7/10; 09:15 BP 131 / 69; Pulse 75; Resp 16; Pulse Ox 99% ; bp 07:52 Body Mass Index 33.41 (93.89 kg, 167.64 cm) ss 07:52 Pain Scale: Adult ss MDM: 08:12 Medical Screening Exam initiated gb1 08:56 ED course: 34-year-old male with acute right flank pain no obstructing ureterolithiasis gb1 or any signs of acute pyelonephritis. Patient has normal vital signs this is likely musculoskeletal injury. There is no midline tenderness I doubt acute vertebral fracture transverse process fracture. I doubt compression fractures, no trauma reported. Patient be discharged home with recommended NSAIDs for pain and I recommend ER return and follow-up within 3 to 5 days.. 09:12 Data reviewed: vital signs, nurses notes. gb1 07/31 08:13 Order name: CBC with Diff; Complete Time: 08:53 gb1 07/31 08:13 Order name: CMP gb1 07/31 08:13 Order name: Urinalysis w/ reflexes; Complete Time: 08:53 gb1 07/31 08:13 Order name: CT Abd/Pelvis - Without Contrast; Complete Time: 08:53 gb1 07/31 08:13 Order name: IV Saline Lock; Complete Time: 08:36 gb1 12 08:13 Order name: Labs collected and sent; Complete Time: 08:36 gb1 Administered Medications: 08:36 Drug: NS 0.9% IV 1000 ml IV at 1 bolus Per protocol; to be given as a bolus over 60 bp minutes Route: IV; Rate: 1 bolus; Site: right antecubital; 09:02 Follow up: IV Status: Completed infusion bp 08:36 Drug: Ketorolac IVP 30 mg IVP once Route: IVP; Site: right antecubital; bp 09:01 Follow up: Response: No adverse reaction bp Disposition Summary: 07/31/24 08:55 Discharge Ordered Notes: Location: Home gb1 Condition: Stable gb1 Diagnosis - Low back pain gb1 Followup: gb1 - With: Private Physician - When: - Reason: Recheck today's complaints Discharge Instructions: - Discharge Summary Sheet gb1 - Acute Back Pain, Adult gb1 Forms: - Work release form ll1 - Medication Reconciliation Form gb1 - Antibiotic Education gb1 - Prescription Opioid Use gb1 - Patient Portal Instructions gb1 - Leadership Thank You Letter gb1 Prescriptions: - Ibuprofen 800 mg Oral Tablet - take 1 tablet ORAL route every 12 hours As needed take with food; 20 tablet; gb1 Refills: 0, Product Selection Permitted Signatures: Dispatcher [employer] Brianna Liu, RN RN ss Eduard Del Cid RN RN Hue Almanza MD MD gb1 Corrections: (The following items were deleted from the chart) 08:13 08:13 CBC+H.LAB.BRZ ordered. EDMS EDMS 08:13 08:13 COMPREHENSIVE METABOLIC PANEL+C.LAB.BRZ ordered. EDMS EDMS 08:13 08:13 Urinalysis+U.LAB.BRZ ordered. EDMS EDMS 08:13 08:13 Abdomen Pelvis Wo Con+CT.RAD.BRZ ordered. EDMS EDMS
[2024-07-31 09:01] LABS: Albumin 3.8 g/dL (3.4-5.0); Anion Gap 3.9 mEq/L (5.0-15.0); Bilirubin Total 0.2 mg/dL (0.2-1.0); Globulin 3.7 g/dL (2.3-3.5); Potassium 3.9 mEq/L (3.5-5.1); Protein, Total 7.5 g/dL (6.4-8.2)
[2024-07-31 12:30] VITALS: TEMP 97.2
[2024-07-31 12:32] VITALS: BP 131/69; O2SAT 99
== END 2024-07-31 09:16 | disposition home or self-care (01) ==
LOC: ER 07:37
DX: M54.50 Low back pain, unspecified (principal)
CPT/HCPCS: 36415; 74176; 80053; 81001; 85025; 96374; 99284; J7030

== ENCOUNTER 2024-12-25 08:45 | Emergency (ER) | payer SELFPAY ==
--- NOTE | 2024-12-25 09:34 | EDPHYS ---
Physician Documentation [facility] Name: Luis Guerra Age: 34 yrs Sex: Male : 1990 Arrival Date: 12/25/2024 Time: 08:45 Bed IW1 Private MD: ED Physician Du Ramos HPI: 12/25 09:30 This 34 yrs old Male presents to ER via Ambulatory with complaints of Sore Throat, rn cough. 09:30 The patient presents with sore throat. Severity of symptoms: At their worst the rn symptoms were moderate, in the emergency department the symptoms have improved. Patient reports sore throat and cough that began yesterday. sick with similar symptoms for about a week, improving on Zithromax. Patient reports poor dentition and recurrent throat infections. No shortness of breath. No hemoptysis.. Historical: - Allergies: 09:20 Iodine (Anaphylaxis); jl7 - Home Meds: 09:20 None [Active]; jl7 - PMHx: 09:20 None; jl7 - PSHx: 09:20 Esophagus; jl7 - Immunization history:: Adult Immunizations unknown. - Infectious Disease History:: Denies. - Social history:: Smoking status: Patient reports the use of cigarette tobacco products, smokes one pack cigarettes per day. - Family history:: not pertinent. - Hospitalizations: : No recent hospitalization is reported. ROS: 09:31 Constitutional: Negative for fever, chills, and weight loss, ENT: + sore throat rn Respiratory: + cough, negative for sob Abdomen/GI: Negative for abdominal pain, nausea, vomiting, diarrhea, and constipation, Exam: 09:31 Constitutional: This is a well developed, well nourished patient who is awake, alert, rn and in no acute distress. Ambulatory to triage without assistance or difficulty. ENT: + pharyngeal erythema, no stridor, + non-tender ant cervical LAD. Neck: Neck supple no meningismus Respiratory: Speaking full sentences, unlabored. Vital Signs: 09:19 BP 139 / 79; Pulse 86; Resp 15; Temp 97.7; Pulse Ox 98% ; Weight 91.17 kg; Height 5 ft. jl7 6 in. ; Pain 4/10; 09:19 Body Mass Index 32.44 (91.17 kg, 167.64 cm) jl7 09:19 Pain Scale: Adult jl7 MDM: 08:57 Medical Screening Exam initiated rn 09:31 Differential diagnosis: laryngitis, pharyngitis, tonsillitis, upper respiratory rn infection, viral syndrome. Data reviewed: vital signs, nurses notes, and as a result, I will discharge patient. Counseling: I had a detailed discussion with the patient and/or guardian regarding the historical points, exam findings, and any diagnostic results supporting the discharge/admit diagnosis, the need for outpatient follow up, to return to the emergency department if symptoms worsen or persist or if there are any questions or concerns that arise at home. Special discussion: I discussed with the patient/guardian in detail that at this point there is no indication for admission to the hospital. It is understood, however, that if the symptoms persist or worsen the patient needs to return immediately for re-evaluation. Administered Medications: No medications were administered Disposition Summary: 12/25/24 09:33 Discharge Ordered Notes: Location: Home rn Problem: new rn Symptoms: have improved rn Condition: Stable rn Diagnosis - Acute pharyngitis, unspecified rn Followup: rn - With: Private Physician - When: As needed - Reason: Recheck today's complaints, Re-evaluation by your physician Discharge Instructions: - Pharyngitis rn - Sore Throat rn - Discharge Summary Sheet jl7 Forms: - Medication Reconciliation Form rn - Antibiotic rn document improvement - Prescription Opioid Use rn - Patient Portal Instructions rn - Leadership Thank You Letter rn - Work release form jl7 Prescriptions: - Zithromax Z-Khalif 250 mg Oral Tablet - take 1 tablet ORAL route as directed for 5 days Day 1 - take two (2) tablets rn one time. Day 2, 3, 4 , 5 take one (1) tablet once daily.; 6 tablet; Refills: 0, Product Selection Permitted Signatures: Du Ramos MD MD rn Leal, Jahala, RN RN jl7
--- NOTE | 2024-12-25 09:34 | ER ---
Nurse's Notes [facility] [place] [place] Name: Luis Guerra Age: 34 yrs Sex: Male : 1990 Arrival Date: 12/25/2024 Time: 08:45 Bed IW1 Private MD: Diagnosis: Acute pharyngitis, unspecified Presentation: 12/25 09:19 Chief complaint: Patient states: Sore throat and coughing x 1 day. Coronavirus screen: jl7 Client presents with at least one sign or symptom that may indicate coronavirus-19. Ebola Screen: No symptoms or risks identified at this time. Initial Sepsis Screen: Does the patient meet any 2 criteria? No. Patient's initial sepsis screen is negative. Does the patient have a suspected source of infection? No. Patient's initial sepsis screen is negative. Risk Assessment: Do you want to hurt yourself or someone else? Patient reports no desire to harm self or others. Onset of symptoms was December 24, 2024. 09:19 Method Of Arrival: Ambulatory [facility] 09:19 Acuity: REINA 4 jl7 Triage Assessment: 09:20 General: Appears in no apparent distress. uncomfortable, Behavior is calm, cooperative, jl7 appropriate for age. Pain: Complains of pain in throat Pain currently is 4 out of 10 on a pain scale. EENT: Reports pain in throat. Historical: - Allergies: 09:20 Iodine (Anaphylaxis); jl7 - Home Meds: 09:20 None [Active]; jl7 - PMHx: 09:20 None; jl7 - PSHx: 09:20 Esophagus; jl7 - Immunization history:: Adult Immunizations unknown. - Infectious Disease History:: Denies. - Social history:: Smoking status: Patient reports the use of cigarette tobacco products, smokes one pack cigarettes per day. - Family history:: not pertinent. - Hospitalizations: : No recent hospitalization is reported. Screenin:21 [facility] ED Fall Risk Assessment (Adult) History of falling in the last 3 months, jl7 including since admission No falls in past 3 months (0 pts) Confusion or Disorientation No (0 pts) Intoxicated or Sedated No (0 pts) Impaired Gait No (0 pts) Mobility Assist Device Used No (0 pt) Altered Elimination No (0 pt) Score/Fall Risk Level 0 - 2 = Low Risk Oriented to surroundings, Maintained a safe environment. Abuse screen: Denies threats or abuse. Denies injuries from another. Nutritional screening: No deficits noted. Tuberculosis screening: No symptoms or risk factors identified. Vital Signs: 09:19 BP 139 / 79; Pulse 86; Resp 15; Temp 97.7; Pulse Ox 98% ; Weight 91.17 kg; Height 5 ft. jl7 6 in. ; Pain 4/10; 09:19 Body Mass Index 32.44 (91.17 kg, 167.64 cm) jl7 09:19 Pain Scale: Adult jl7 ED Course: 08:49 Patient arrived in ED. cj3 08:57 Du Ramos MD is Attending Physician. rn 09:20 Triage completed. jl7 09:20 Arm band placed on right wrist. jl7 09:21 Patient has correct armband on for positive identification. Provided Education on: jl7 discharge. 09:21 No provider procedures requiring assistance completed. Patient did not have IV access jl7 during this emergency room visit. Administered Medications: No medications were administered Medication: 09:21 VIS not applicable for this client. jl7 Outcome: 09:33 Discharge ordered by . rn 10:14 Discharged to home ambulatory, jl7 10:14 Condition: stable 10:14 Discharge instructions given to patient, Instructed on discharge instructions, follow up and referral plans. medication usage, Demonstrated understanding of instructions, follow-up care, medications, Prescriptions given X 1, 10:14 Patient left the ED. jl7 Signatures: Du Ramos MD MD rn Leal, Jahala, RN RN jl7 Johnson, Celeste 3
[2024-12-25 10:21] VITALS: BP 139/79; TEMP 97.7; O2SAT 98
== END 2024-12-25 10:14 | disposition home or self-care (01) ==
LOC: ER 08:45
DX: J02.9 Acute pharyngitis, unspecified (principal); R05.9 Cough, unspecified
CPT/HCPCS: 99283

== ENCOUNTER 2025-04-18 07:37 | Emergency (ER) | payer SELFPAY ==
[2025-04-18] MEDS ORDERED: MORPHINE 4 MG/ML SYR ONE (07:54)
[2025-04-18] MEDS ORDERED: NA CHLORIDE 0.9% 1,000 ML ONE (07:54)
[2025-04-18] MEDS ORDERED: ONDANSETRON 4 MG/2 ML VIAL ONE (07:54)
[2025-04-18 08:27] LABS: Urine Microscopic Reflex YN NO UMIC
[2025-04-18 08:35] LABS: Absolute Lymphocytes (CBC) 3.3 K/uL (0.7-4.9); Hematocrit 42.5 % (39.6-49.0); Hemoglobin 14.8 g/dL (13.6-17.9); MCH 31.4 pg (27.0-35.0); MCHC 34.8 g/dL (32.0-36.0); MCV 90.2 fL (80-100); MPV 7.2 fL (7.6-11.3); Nucleated RBC Absolute Count 0.0 (0-0); Nucleated Red Blood Cells % 0.1 % (0-0); RBC Red Blood Cell Count 4.71 M/uL (4.33-5.43); White Blood Count 10.00 thou/uL (4.3-10.9)
[2025-04-18 08:51] LABS: ALT/SGPT 34 U/L (16-61); Albumin 3.7 g/dL (3.4-5.0); Albumin/Globulin Ratio 1.1 (1.1-1.8); Alkaline Phosphatase 109 U/L (45-117); Anion Gap 4.0 mEq/L (5.0-15.0); BUN Blood Urea Nitrogen 13 mg/dL (7-18); Globulin 3.5 g/dL (2.3-3.5); Glucose Level 95 mg/dL (74-106); Lipase 29 U/L (13-75); Potassium 4.0 mEq/L (3.5-5.1)
[2025-04-18 08:53] LABS: AST/SGOT < 10 U/L (15-37)
--- NOTE | 2025-04-18 09:01 | RAD REPORT ---
EXAMINATION: CT Abdomen Pelvis Wo Contrast CLINICAL INDICATION: Male, 34 years old. ABD PAIN TECHNIQUE: CT abdomen and pelvis was performed, without IV contrast, as per department protocol. Axia l, sagittal and coronal reconstructions were obtained. One or more of the following dose reduction techniques were used: Automated exposure control, adjustment of the mA and kV according to the patien t size, and iterative reconstruction. Unless otherwise specified, incidental findings do not require dedicated imaging follow-up. COMPARISON: 07/31/2024 FINDINGS: The lack of intravenous contrast limits the sensitivity of this exam for evaluation of solid visceral organs, vascular structures, and retroperitoneum. LOWER CHEST: The visualized lung bases are clear. LIVER: Normal in size and contour. No focal lesion. BILIARY SYSTEM: No suspicious abnormalities. SPLEEN: Normal size. No focal lesion. PANCREAS: No mass, ductal dilation, or afsaneh-pancreatic fluid. ADRENALS: Normal; no mass. KIDNEYS AND URETERS: Normal size and contour. Nonobstructing right interpolar 4 mm calculus. No hydro nephrosis. URINARY BLADDER: Normal contour. GASTROINTESTINAL TRACT: No evidence of bowel obstruction, significant free fluid, free air or abscess . APPENDIX: Normal appendix. LYMPH NODES: No lymphadenopathy. MUSCULOSKELETAL: No acute or suspicious osseous abnormality. ADDITIONAL FINDINGS: None. IMPRESSION: Nonobstructing right renal nonobstructing 4 mm interpolar calculus. No other acute or concerning abnormalities in the abdomen or pelvis, with evaluation limited by lack of IV contrast.
--- NOTE | 2025-04-18 10:43 | EDPHYS ---
Physician Documentation [facility] Name: Luis Guerra Age: 34 yrs Sex: Male : 1990 Arrival Date: 04/18/2025 Time: 07:37 Bed 7 Private MD: YARELIS Physician Armando Zendejas HPI: 04/18 10:34 This 34 yrs old Male presents to ER via Ambulatory with complaints of susy Abdominal Pain - LOWER MID, Diarrhea. 10:34 The patient presents to the emergency department with diarrhea, abdominal pain, of the susy right upper quadrant, left upper quadrant, right lower quadrant and left lower quadrant. Onset: The symptoms/episode began/occurred 5 day(s) ago. Possible causes: unknown, bad food exposure, flare up of bowel problem. The symptoms are aggravated by nothing. The symptoms are alleviated by nothing. Associated signs and symptoms: Pertinent positives: abdominal pain, diarrhea. Severity of symptoms: At their worst the symptoms were moderate. The patient has not experienced similar symptoms in the past. Historical: - Allergies: 07:55 Iodine (Anaphylaxis); jl7 - Home Meds: 07:55 None [Active]; jl7 - PMHx: 07:55 None; jl7 - PSHx: 07:55 Esophagus; jl7 - Immunization history:: Adult Immunizations up to date. - Infectious Disease History:: Denies. - Social history:: Smoking status: Patient reports the use of cigarette tobacco products, smokes one pack cigarettes per day. ROS: 10:35 Constitutional: Negative for fever, chills, and weight loss, Eyes: Negative for injury, susy pain, redness, and discharge, ENT: Negative for injury, pain, and discharge, Neck: Negative for injury, pain, and swelling, Cardiovascular: Negative for chest pain, palpitations, and edema, Respiratory: Negative for shortness of breath, cough, wheezing, and pleuritic chest pain, Back: Negative for injury and pain, : Negative for injury, bleeding, discharge, and swelling, MS/Extremity: Negative for injury and deformity, Skin: Negative for injury, rash, and discoloration, Neuro: Negative for headache, weakness, numbness, tingling, and seizure, Psych: Negative for depression, anxiety, suicide ideation, homicidal ideation, and hallucinations, Allergy/Immunology: Negative for hives, rash, and allergies, Endocrine: Negative for neck swelling, polydipsia, polyuria, polyphagia, and marked weight changes, Hematologic/Lymphatic: Negative for swollen nodes, abnormal bleeding, and unusual bruising, 10:35 Abdomen/GI: Positive for abdominal pain, diarrhea, abdominal cramps, Exam: 10:35 Constitutional: This is a well developed, well nourished patient who is awake, alert, susy and in no acute distress. Head/Face: Normocephalic, atraumatic. Eyes: Pupils equal round and reactive to light, extra-ocular motions intact. Lids and lashes normal. Conjunctiva and sclera are non-icteric and not injected. Cornea within normal limits. Periorbital areas with no swelling, redness, or edema. ENT: Nares patent. No nasal discharge, no septal abnormalities noted. Tympanic membranes are normal and external auditory canals are clear. Oropharynx with no redness, swelling, or masses, exudates, or evidence of obstruction, uvula midline. Mucous membranes moist. Neck: Trachea midline, no thyromegaly or masses palpated, and no cervical lymphadenopathy. Supple, full range of motion without nuchal rigidity, or vertebral point tenderness. No Meningismus. Chest/axilla: Normal chest wall appearance and motion. Nontender with no deformity. No lesions are appreciated. Cardiovascular: Regular rate and rhythm with a normal S1 and S2. No gallops, murmurs, or rubs. Normal PMI, no JVD. No pulse deficits. Respiratory: Lungs have equal breath sounds bilaterally, clear to auscultation and percussion. No rales, rhonchi or wheezes noted. No increased work of breathing, no retractions or nasal flaring. Abdomen/GI: Soft, non-tender, with normal bowel sounds. No distension or tympany. No guarding or rebound. No evidence of tenderness throughout. Back: No spinal tenderness. No costovertebral tenderness. Full range of motion. Male : Normal genitalia with no discharge or lesions. Skin: Warm, dry with normal turgor. Normal color with no rashes, no lesions, and no evidence of cellulitis. MS/ Extremity: Pulses equal, no cyanosis. Neurovascular intact. Full, normal range of motion., bilateral aka Neuro: Awake and alert, GCS 15, oriented to person, place, time, and situation. Cranial nerves II-XII grossly intact. Motor strength 5/5 in all extremities. Sensory grossly intact. Cerebellar exam normal. Normal gait. Psych: Awake, alert, with orientation to person, place and time. Behavior, mood, and affect are within normal limits. Vital Signs: 07:54 BP 129 / 70; Pulse 75; Resp 17; Temp 98.2; Pulse Ox 98% ; Weight 89.36 kg; Height 5 ft. jl7 6 in. ; Pain 4/10; 08:10 BP 137 / 91 LA Supine (auto/reg); Pulse 74; Resp 16; Pulse Ox 100% on R/A; jp5 09:10 BP 131 / 83; Pulse 62; Resp 18; Pulse Ox 98% on R/A; jp5 10:10 BP 130 / 90; Pulse 65; Resp 18; Temp 98(O); Pulse Ox 99% on R/A; jp5 07:54 Body Mass Index 31.80 (89.36 kg, 167.64 cm) 7 07:54 Pain Scale: Adult [facility] MDM: 07:42 Medical Screening Exam initiated [facility] 10:36 Differential diagnosis: Nonspecific abd pain. Data reviewed: vital signs, nurses notes, [facility] lab test result(s), EKG, radiologic studies, CT scan. 04/18 07:43 Order name: CBC with Diff; Complete Time: 10:22 [facility] 04/18 07:43 Order name: CMP; Complete Time: 10:22 [facility] 04/18 07:43 Order name: Lipase; Complete Time: 10:22 [facility] 04/18 07:43 Order name: UA Rfx Luis Cult if indicated; Complete Time: 10:22 susy 04/18 07:58 Order name: Abdomen ; Complete Time: 10:22 EDMS 04/18 07:43 Order name: IV Saline Lock; Complete Time: 08:18 [facility] 04/18 07:43 Order name: Labs collected and sent; Complete Time: 08:18 [facility] Administered Medications: 08:07 Not Given (Patient Refused): mg IVP once; dilute with 10 mL 0.9% NaCl; jp5 give over 2 minutes 08:07 Not Given (Patient Refused): ondansetron 4 mg IVP once; over 2 minutes jp5 08:07 Not Given (Patient Refused): morphineor iv 4 mg IVP once over 4 mins jp5 08:11 Drug: NS 0.9% IV 1000 ml IV at 1 bolus Per protocol; to be given as a bolus over 60 jp5 minutes Route: IV; Rate: 1 bolus; Site: right antecubital; Disposition Summary: 04/18/25 10:43 Discharge Ordered Notes: Location: Home susy Problem: new susy Symptoms: have improved susy Condition: Stable susy Diagnosis - Abdominal pain, Generalized susy - Diarrhea, unspecified susy Followup: susy - With: Private Physician - When: 2 - 3 days - Reason: Recheck today's complaints, Continuance of care, Re-evaluation by your physician Followup: susy - With: [place] Adames MD - When: 2 - 3 days - Reason: Recheck today's complaints, Continuance of care, Re-evaluation by your physician Discharge Instructions: - Discharge Summary Sheet susy - Abdominal Pain, Adult susy - Food Choices to Help Relieve Diarrhea, Adult susy - Chronic Diarrhea susy - Diarrhea, Adult susy - Abdominal Pain, Adult, [id number] Forms: - Medication Reconciliation Form susy - Antibiotic Education susy - Prescription Opioid Use susy - Patient Portal Instructions [facility] - Leadership Thank You Letter susy - Work release form jp5 Prescriptions: - Pepcid 20 mg Oral Tablet - take 1 tablet ORAL route every 12 hours for 10 days; 20 tablet; Refills: 0, [facility] Product Selection Permitted - dicyclomine 20 mg Oral tablet - take 1 tablet ORAL route 4 times per day; 28 tablet; Refills: 0, Product [facility] Selection Permitted Signatures: Dispatcher [employer] Armando Slade MD MD cha Leal, Jahala, RN RN jl7 Lida Lopes, RN RN jp5 Corrections: (The following items were deleted from the chart) 07:43 07:43 CBC+H.LAB.BRZ ordered. EDMS EDMS 07:43 07:43 COMPREHENSIVE METABOLIC PANEL+C.LAB.BRZ ordered. EDMS EDMS 07:43 07:43 LIPASE+C.LAB.BRZ ordered. EDMS EDMS 07:43 07:43 UA Rfx Luis Cult if indicated+U.LAB.BRZ ordered. EDMS EDMS 07:43 07:43 Abdomen Pelvis W Con+CT.RAD.BRZ ordered. EDMS EDMS
--- NOTE | 2025-04-18 10:43 | ER ---
Nurse's Notes [facility] Name: Luis Guerra Age: 34 yrs Sex: Male : 1990 Arrival Date: 04/18/2025 Time: 07:37 Bed 7 Private MD: Diagnosis: Abdominal pain, Generalized;Diarrhea, unspecified Presentation: 04/18 07:54 Chief complaint: Patient states: lower-mid abdominal pain/cramping, diarrhea x 1 week. jl7 Coronavirus screen: At this time, the client does not indicate any symptoms associated with coronavirus-19. Ebola Screen: No symptoms or risks identified at this time. Initial Sepsis Screen: Does the patient meet any 2 criteria? No. Patient's initial sepsis screen is negative. Does the patient have a suspected source of infection? No. Patient's initial sepsis screen is negative. Risk Assessment: Do you want to hurt yourself or someone else? Patient reports no desire to harm self or others. Onset of symptoms was April 11, 2025. 07:54 Method Of Arrival: Ambulatory [facility] 07:54 Acuity: REINA 3 jl7 Triage Assessment: 07:55 General: Appears in no apparent distress. uncomfortable, Behavior is calm, cooperative, jl7 appropriate for age. Pain: Complains of pain in abdomen Pain currently is 0 out of 10 on a pain scale. at worst was 4 out of 10 on a pain scale. GI: Reports diarrhea. Historical: - Allergies: 07:55 Iodine (Anaphylaxis); jl7 - Home Meds: 07:55 None [Active]; jl7 - PMHx: 07:55 None; jl7 - PSHx: 07:55 Esophagus; jl7 - Immunization history:: Adult Immunizations up to date. - Infectious Disease History:: Denies. - Social history:: Smoking status: Patient reports the use of cigarette tobacco products, smokes one pack cigarettes per day. Screenin:[facility] ED Fall Risk Assessment (Adult) History of falling in the last 3 months, jp5 including since admission No falls in past 3 months (0 pts) Confusion or Disorientation No (0 pts) Intoxicated or Sedated No (0 pts) Impaired Gait No (0 pts) Mobility Assist Device Used No (0 pt) Altered Elimination No (0 pt) Score/Fall Risk Level 0 - 2 = Low Risk Oriented to surroundings, Maintained a safe environment, Educated pt \T\ family on fall prevention, incl call for assistance when getting out of bed, Assessed \T\ reinforced patient's understanding of fall precautions, Hourly rounding (assess needs \T\ fall precautionary measures) done. Abuse screen: Denies threats or abuse. Denies injuries from another. Nutritional screening: No deficits noted. Tuberculosis screening: No symptoms or risk factors identified. Assessment: 08:05 General: Appears in no apparent distress. comfortable, Behavior is calm, cooperative, jp5 appropriate for age, Denies fever, feeling ill, fatigue, chills. Pain: Denies pain. Neuro: No deficits noted. Level of Consciousness is awake, alert, obeys commands, Oriented to person, place, time, situation, Appropriate for age. GI: Bowel sounds present X 4 quads. Abd is soft Abd is non tender. : Reports burning with urination. 09:05 Reassessment: Patient appears in no apparent distress at this time. No changes from jp5 previously documented assessment. Patient and/or family updated on plan of care and expected duration. Pain level reassessed. 10:05 Reassessment: Patient appears in no apparent distress at this time. No changes from jp5 previously documented assessment. Patient and/or family updated on plan of care and expected duration. Pain level reassessed. Vital Signs: 07:54 BP 129 / 70; Pulse 75; Resp 17; Temp 98.2; Pulse Ox 98% ; Weight 89.36 kg; Height 5 ft. jl7 6 in. ; Pain 4/10; 08:10 BP 137 / 91 LA Supine (auto/reg); Pulse 74; Resp 16; Pulse Ox 100% on R/A; jp5 09:10 BP 131 / 83; Pulse 62; Resp 18; Pulse Ox 98% on R/A; jp5 10:10 BP 130 / 90; Pulse 65; Resp 18; Temp 98(O); Pulse Ox 99% on R/A; jp5 07:54 Body Mass Index 31.80 (89.36 kg, 167.64 cm) jl7 07:54 Pain Scale: Adult jl7 ED Course: 07:41 Patient arrived in ED. cj3 07:42 Armando Zendejas MD is Attending Physician. [facility] 07:55 Triage completed. jl7 07:55 Arm band placed on right wrist. jl7 08:05 Abdomen In Process Unspecified. EDMS 08:08 Patient has correct armband on for positive identification. Bed in low position. Call jp5 light in reach. Side rails up X 1. Provided Education on: call light. 08:10 Inserted saline lock: 18 gauge in right antecubital area, using aseptic technique. jp5 Blood collected. Flushed with 10 mL NS. 08:18 CBC with Diff Sent. jp5 08:18 CMP Sent. jp5 08:18 Lipase Sent. jp5 08:20 No provider procedures requiring assistance completed. jp5 10:43 North Adames MD is Referral Physician. susy 10:58 IV discontinued, intact, bleeding controlled, No redness/swelling at site. Pressure jp5 dressing applied. Administered Medications: 08:07 Not Given (Patient Refused): mg IVP once; dilute with 10 mL 0.9% NaCl; jp5 give over 2 minutes 08:07 Not Given (Patient Refused): ondansetron 4 mg IVP once; over 2 minutes jp5 08:07 Not Given (Patient Refused): morphineor iv 4 mg IVP once over 4 mins jp5 08:11 Drug: NS 0.9% IV 1000 ml IV at 1 bolus Per protocol; to be given as a bolus over 60 jp5 minutes Route: IV; Rate: 1 bolus; Site: right antecubital; Medication: 08:21 VIS not applicable for this client. jp5 Outcome: 10:43 Discharge ordered by . [facility] 10:59 Discharged to home ambulatory, with family, jp5 10:59 Condition: improved 10:59 Discharge instructions given to patient, family, Instructed on discharge instructions, follow up and referral plans. medication usage, safety practices, Demonstrated understanding of instructions, follow-up care, medications, Prescriptions given X 2, 11:02 Patient left the ED. jp5 Signatures: Dispatcher [employer] EDTN Armando Zendejas MD MD cha Leal, Jahala RN RN jl7 Lida Lopes, JOSE C RN jp5 Roxanne Faria cj3
[2025-04-18 13:44] VITALS: BP 130/90; TEMP 98; O2SAT 99
== END 2025-04-18 11:02 | disposition home or self-care (01) ==
LOC: ER 07:37
DX: R10.84 Generalized abdominal pain (principal); R19.7 Diarrhea, unspecified
CPT/HCPCS: 36415; 74176; 80053; 81003; 83690; 85025; J2405; J7030

== ENCOUNTER 2025-05-30 07:44 | Emergency (ER) | payer SELFPAY ==
--- NOTE | 2025-05-30 08:04 | EDPHYS ---
Physician Documentation [facility] Name: Luis Guerra Age: 34 yrs Sex: Male : 1990 Arrival Date: 05/30/2025 Time: 07:44 Bed IW1 Private MD: ED Physician Nura Santiago HPI: 05/30 07:59 This 34 yrs old Male presents to ER via Unassigned with complaints of Mouth Problem - kb LT SIDE. 07:59 Pt is a 34 year old male who presents for pain to upper left tooth that started kb yesterday when it broke. Denies fever. States it was bleeding after it broke. . Historical: - Allergies: 08:06 Iodine (Anaphylaxis); iw - PSHx: 08:06 Esophagus; iw - Infectious Disease History:: Denies. ROS: 07:59 Constitutional: As per HPI kb Exam: 07:59 Constitutional: This is a well developed, well nourished patient who is awake, alert, kb and in no acute distress. Head/Face: Normocephalic, atraumatic. ENT: Moist Mucous membranes Respiratory: Respirations even and unlabored. No increased work of breathing. Talking in full sentences Skin: Warm, dry with normal turgor. Normal color. MS/ Extremity: Pulses equal, no cyanosis. Neurovascular intact. Full, normal range of motion. Neuro: Awake and alert, GCS 15, oriented to person, place, time, and situation. 07:59 ENT: Dental exam: dental caries, that is severe, diffusely, pain, that is moderate, specifically in the upper left cuspid (#11), Vital Signs: 08:05 BP 134 / 76; Pulse 90; Resp 16; Pulse Ox 100% on R/A; Weight 95.25 kg; Height 5 ft. 6 iw in. ; Pain 6/10; 08:05 Body Mass Index 33.89 (95.25 kg, 167.64 cm) iw 08:05 Pain Scale: Adult iw MDM: 07:53 Medical Screening Exam initiated kb 08:01 Differential diagnosis: dental caries, gingivitis, dental abscess, pericoronitis, kb aphthous ulcers. Data reviewed: vital signs, nurses notes. Care significantly affected by the following Social Determinants of Health: Poor access to healthcare and/or lack of insurance. Counseling: I had a detailed discussion with the patient and/or guardian regarding the historical points, exam findings, and any diagnostic results supporting the discharge/admit diagnosis, the need for outpatient follow up, a dentist, to return to the emergency department if symptoms worsen or persist or if there are any questions or concerns that arise at home. ED course: Pt states he has been to the dentist about his teeth and was told they all need to be pulled, but it would cost about $5000 so he hasn't been able to do that. . Administered Medications: 18:02 Not Given (Patient Refused): amoxicillin-[id number] mg PO once iw Disposition: 14:53 I was immediately available on-site in the Emergency Department for consultation in the ms3 care of the patient. Disposition Summary: 05/30/25 08:03 Discharge Ordered Notes: Location: Home kb Condition: Stable kb Diagnosis - Dental caries, unspecified kb Followup: kb - With: Emergency Department - When: As needed - Reason: Worsening of condition Followup: kb - With: Private Physician - When: 2 - 3 days - Reason: Recheck today's complaints, Continuance of care, Re-evaluation by your physician Discharge Instructions: - Discharge Summary Sheet kb - Dental Caries, Adult kb - Dental Pain, [id number] kb Forms: - Work release form kb - Medication Reconciliation Form kb - Antibiotic Education kb - Patient Portal Instructions kb - Leadership Thank You Letter kb Prescriptions: - Augmentin 875-125 mg Oral Tablet - take 1 tablet ORAL route every 12 hours for 10 days; 20 tablet; Refills: 0, kb Product Selection Permitted - Ibuprofen 800 mg Oral Tablet - take 1 tablet ORAL route every 8 hours As needed take with food; 30 tablet; kb Refills: 0, Product Selection Permitted Signatures: Isabella Keita, HIREN MCKEON-Mira Vora, RN RN Nura Vieira DO DO ms3
[2025-05-30] MEDS ORDERED: AMOX/K CLAV 875 MG TAB ONE (08:08)
--- NOTE | 2025-05-30 08:14 | ER ---
Nurse's Notes [facility] Name: Luis Guerra Age: 34 yrs Sex: Male : 1990 Arrival Date: 05/30/2025 Time: 07:44 Bed IW1 Private MD: Diagnosis: Dental caries, unspecified Presentation: 05/30 08:05 Chief complaint: Patient states: tooth broke off yesterday pain to left side of mouth. iw Coronavirus screen: At this time, the client does not indicate any symptoms associated with coronavirus-19. Ebola Screen: No symptoms or risks identified at this time. Initial Sepsis Screen: Does the patient meet any 2 criteria? No. Patient's initial sepsis screen is negative. Does the patient have a suspected source of infection? No. Patient's initial sepsis screen is negative. Risk Assessment: Do you want to hurt yourself or someone else? Patient reports no desire to harm self or others. Onset of symptoms was May 29, 2025. 08:05 Method Of Arrival: Ambulatory iw 08:05 Acuity: REINA 5 iw Historical: - Allergies: 08:06 Iodine (Anaphylaxis); iw - PSHx: 08:06 Esophagus; iw - Infectious Disease History:: Denies. Screenin:13 [facility] ED Fall Risk Assessment (Adult) History of falling in the last 3 months, iw including since admission No falls in past 3 months (0 pts) Confusion or Disorientation No (0 pts) Intoxicated or Sedated No (0 pts) Impaired Gait No (0 pts) Mobility Assist Device Used No (0 pt) Altered Elimination No (0 pt) Score/Fall Risk Level 0 - 2 = Low Risk Oriented to surroundings, Maintained a safe environment. Abuse screen: Denies threats or abuse. Denies injuries from another. Nutritional screening: No deficits noted. Tuberculosis screening: No symptoms or risk factors identified. Assessment: 08:05 General: Appears in no apparent distress. Behavior is calm, cooperative. Pain: iw Complains of pain in upper left cuspid (#11). Neuro: Level of Consciousness is awake, alert, obeys commands, Oriented to person, place, time, situation, Moves all extremities. Full function. Cardiovascular: Patient's skin is warm and dry. Respiratory: Respiratory effort is even, unlabored, Respiratory pattern is regular, symmetrical. Derm: Skin is intact, is healthy with good turgor. Musculoskeletal: Range of motion: intact in all extremities. Vital Signs: 08:05 BP 134 / 76; Pulse 90; Resp 16; Pulse Ox 100% on R/A; Weight 95.25 kg; Height 5 ft. 6 iw in. ; Pain 6/10; 08:05 Body Mass Index 33.89 (95.25 kg, 167.64 cm) iw 08:05 Pain Scale: Adult iw ED Course: 07:51 Patient arrived in ED. cj3 07:53 Isabella Keita FNP-C [facility]. kb 07:53 Nura Santiago DO is Attending Physician. kb 08:05 Mira Jaramillo, RN is Primary Nurse. iw 08:06 Triage completed. iw 08:07 Arm band placed on. iw Administered Medications: 18:02 Not Given (Patient Refused): amoxicillin- mg PO once iw Medication: 08:08 VIS not applicable for this client. iw Outcome: 08:03 Discharge ordered by . kb 08:13 Discharged to home ambulatory, iw 08:13 Condition: good 08:14 Patient left the ED. iw Signatures: Isabella Keita FNP-C FNP-Mira Vora, RN RN iw Roxanne Faria cj3 Corrections: (The following items were deleted from the chart) 08:06 08:05 Pulse 90bpm; Resp 16bpm; Pulse Ox 100% RA; 95.25 kg; Height 5 ft. 6 in.; BMI: iw 33.8; Pain 6/10, Adult; iw
[2025-05-30 08:21] VITALS: BP 134/76; O2SAT 100
== END 2025-05-30 08:14 | disposition home or self-care (01) ==
LOC: ER 07:44
DX: K02.9 Dental caries, unspecified (principal)
CPT/HCPCS: 99281

== ENCOUNTER 2025-06-11 07:51 | Emergency (ER) | payer SELFPAY ==
--- NOTE | 2025-06-11 08:29 | EDPHYS ---
Physician Documentation [facility] Name: Luis Guerra Age: 34 yrs Sex: Male : 1990 Arrival Date: 06/11/2025 Time: 07:51 Bed IW1 Private MD: ED Physician Elliot Ulloa HPI: 06/11 08:28 This 34 yrs old Male presents to ER via Ambulatory with complaints of Rash. dr5 08:28 The patient's rash thought to be caused by Eczema Dermatitis. The rash is located on dr5 the left wrist. Onset: The symptoms/episode began/occurred 1.5 day(s) ago. Patient is a 34-year-old male with no past medical history coming in with rash to left wrist and right wrist that is itchy for the past day and a half. Patient reports putting [id number] baby cream on it that has helped mildly. Patient has not taken any medication such as Pepcid, Benadryl, or use hydrocortisone cream. Patient denies being in contact with anything that he knows of, but works in [employer].. Historical: - Allergies: 08:32 Iodine (Anaphylaxis); dr5 - PSHx: 08:32 Esophagus; dr5 - Immunization history:: Adult Immunizations up to date. - Infectious Disease History:: Denies. - Social history:: Smoking status: Patient denies any tobacco usage or history of. ROS: 08:32 Constitutional: as per hpi dr5 Exam: 08:32 Constitutional: This is a well developed, well nourished patient who is awake, alert, dr5 and in no acute distress. Head/Face: Normocephalic, atraumatic. Eyes: Pupils equal round and reactive to light, extra-ocular motions intact. Lids and lashes normal. Conjunctiva and sclera are non-icteric and not injected. Cornea within normal limits. Periorbital areas with no swelling, redness, or edema. Neck: Trachea midline, no thyromegaly or masses palpated, and no cervical lymphadenopathy. Supple, full range of motion without nuchal rigidity, or vertebral point tenderness. No Meningismus. Chest/axilla: Normal chest wall appearance and motion. Nontender with no deformity. No lesions are appreciated. Cardiovascular: Regular rate and rhythm with a normal S1 and S2. Normal PMI, no JVD. No pulse deficits. Respiratory: Lungs have equal breath sounds bilaterally, clear to auscultation. No rales, rhonchi or wheezes noted. No increased work of breathing, no retractions or nasal flaring. Abdomen/GI: Soft, non-tender, non-distended Back: No spinal tenderness. No costovertebral tenderness. Full range of motion. MS/ Extremity: Pulses equal, no cyanosis. Neurovascular intact. Full, normal range of motion. Neuro: Awake and alert, GCS 15, oriented to person, place, time, and situation. Cranial nerves II-XII grossly intact. Motor strength 5/5 in all extremities. Sensory grossly intact. Cerebellar exam normal. Normal gait. 08:32 Skin: rash a mild rash is noted, rash can be described as raised, urticarial, on the Left and right wrist, Vital Signs: 08:53 BP 140 / 88; Pulse 78; Resp 18; Temp 98.7; Pulse Ox 100% ; Weight 95.25 kg; Height 5 hb ft. 6 in. ; Pain 0/10; 08:53 Body Mass Index 33.89 (95.25 kg, 167.64 cm) hb 08:53 Pain Scale: Adult hb MDM: 08:00 Medical Screening Exam initiated dr5 08:32 Differential diagnosis: impetigo, varicella, allergic reaction. Data reviewed: vital dr5 signs, nurses notes. Consideration of Admission/Observation Escalation of care including admission/observation considered. Discussion considered patient found to have fever. I considered the following discharge prescriptions or medication management in the emergency department Offered dexamethasone injection but patient kindly declined. Care significantly affected by the following Social Determinants of Health: Poor access to healthcare and/or lack of insurance, Poor access to transportation, Problems related to employment. Counseling: I had a detailed discussion with the patient and/or guardian regarding the historical points, exam findings, and any diagnostic results supporting the discharge/admit diagnosis, the presence of at least one elevated blood pressure reading (>120/80) during this emergency department visit, the need for outpatient follow up, for definitive care, a behavioral health director, to return to the emergency department if symptoms worsen or persist or if there are any questions or concerns that arise at home. Special discussion: I discussed with the patient/guardian in detail that at this point there is no indication for admission to the hospital. It is understood, however, that if the symptoms persist or worsen the patient needs to return immediately for re-evaluation. Based on the history and exam findings, there is no indication for further emergent testing or inpatient evaluation. I discussed with the patient/guardian the need to see the behavioral health director for further evaluation of the symptoms. ED course: Rash looks like contact dermatitis. Offered dexamethasone injection but patient, declined. Prescribed Pepcid for itching as well as steroid Dosepak. Recommended patient take Benadryl prior to arrival or if itching becomes unbearable. All questions answered. Recommend patient follow-up behavioral health director. Strict ER precautions given. Administered Medications: No medications were administered Disposition Summary: 06/11/25 08:28 Discharge Ordered Notes: Location: Home dr5 Condition: Stable dr5 Diagnosis - Dermatitis, unspecified dr5 Followup: dr5 - With: Emergency Department - When: As needed - Reason: Worsening of condition Followup: dr5 - With: Private Physician - When: 1 - 2 days - Reason: Recheck today's complaints, Continuance of care, Re-evaluation by your physician Discharge Instructions: - Discharge Summary Sheet dr5 - Rash, Adult dr5 Forms: - Work release form dr5 - Medication Reconciliation Form dr5 - Patient Portal Instructions dr5 - Leadership Thank You Letter dr5 Prescriptions: - Medrol (Khalif) 4 mg Oral Tablets, Dose Pack - take 1 tablet ORAL route as directed - follow package instructions; 1 packet; dr5 Refills: 0, Product Selection Permitted - Pepcid 20 mg Oral Tablet - take 1 tablet ORAL route once daily; 20 tablet; Refills: 0, Product Selection dr5 Permitted Signatures: Nia Ramirez, JOSE C RN Matty Haney, HULL OUTFIT SUPERVISOR-C HULL OUTFIT SUPERVISOR-Cdr5
--- NOTE | 2025-06-11 08:56 | ER ---
Nurse's Notes [facility] Name: Luis Guerra Age: 34 yrs Sex: Male : 1990 Arrival Date: 06/11/2025 Time: 07:51 Bed IW1 Private MD: Diagnosis: Dermatitis, unspecified Presentation: 06/11 08:53 Chief complaint: Rash on bilateral wrist x 2 days. Coronavirus screen: At this time, hb the client does not indicate any symptoms associated with coronavirus-19. Ebola Screen: No symptoms or risks identified at this time. Initial Sepsis Screen: Does the patient meet any 2 criteria? No. Patient's initial sepsis screen is negative. Does the patient have a suspected source of infection?. Risk Assessment: Do you want to hurt yourself or someone else? Patient reports no desire to harm self or others. Onset of symptoms was June 10, 2025. 08:53 Method Of Arrival: Ambulatory hb 08:53 Acuity: REINA 4 hb Triage Assessment: 08:54 General: Appears in no apparent distress. Behavior is calm, cooperative. Pain: Denies hb pain. Neuro: GCS 15. Derm: Rash noted that is macular, itchy, papular. Historical: - Allergies: 08:32 Iodine (Anaphylaxis); dr5 - PSHx: 08:32 Esophagus; dr5 - Immunization history:: Adult Immunizations up to date. - Infectious Disease History:: Denies. - Social history:: Smoking status: Patient denies any tobacco usage or history of. Vital Signs: 08:53 BP 140 / 88; Pulse 78; Resp 18; Temp 98.7; Pulse Ox 100% ; Weight 95.25 kg; Height 5 hb ft. 6 in. ; Pain 0/10; 08:53 Body Mass Index 33.89 (95.25 kg, 167.64 cm) hb 08:53 Pain Scale: Adult hb ED Course: 07:53 Patient arrived in ED. im 08:00 Matty Nova FNP-C [facility]. dr5 08:00 Elliot Ulloa MD is Attending Physician. dr5 08:53 Nia Ramirez, RN is Primary Nurse. hb 08:54 Triage completed. hb 08:54 Arm band placed on. hb Administered Medications: No medications were administered Outcome: 08:28 Discharge ordered by . dr5 08:55 Discharged to home ambulatory, hb 08:55 Condition: stable 08:55 Discharge instructions given to patient, Instructed on discharge instructions, follow up and referral plans. medication usage, Demonstrated understanding of instructions, follow-up care, medications, Prescriptions given X 2, 08:55 Patient left the ED. Signatures: Nia Ramirez RN RN Sandee Escudero Dustin, ACCOUNTING MANAGER ASSISTANT CONTROLLER-C ACCOUNTING MANAGER ASSISTANT CONTROLLER-Cdr5
[2025-06-11 12:19] VITALS: BP 140/88; TEMP 98.7; O2SAT 100
== END 2025-06-11 08:55 | disposition home or self-care (01) ==
LOC: ER 07:51
DX: L30.9 Dermatitis, unspecified (principal)
CPT/HCPCS: 99283